=== PATIENT | male | born 1980 ===

== ENCOUNTER 2025-02-06 12:27 | Emergency (ER) | payer OTHER, SELFPAY ==
--- OUTSIDE RECORDS SUMMARY | 2024-12-27 07:30 | XMS_ITS | Encounter Summary ---
Author Organization [facility] Address [facility] [place] [address] Care Team Providers Care Qa Auditor Name Role Phone [facility], [facility] Primary Care Provider Reason for Referral * Consultation (Routine: Next available opening) - Pending Review Specialty Diagnoses / Procedures Referred By Martha dawson Referred To Contact Gastroenterology Diagnoses Acute gastric ulcer with perforation (H) Pam Barraza MD [facility] [place] [address] Phone: tel: fax: Referral ID Status Reason Start Date Expiration Date V isits Requested Visits Authorized [id number] Pending Review 01/02/2025 01/02/2026 1 1 Question Answer Reason for Referral: General GI Patient Scheduling Instructions: [facility] will call you to coordinate your care as prescribed by the provider. If you don t hear from a medical device sales representative within 2 business days, please call . Comments Please be aware that coverage of these services is subject to the terms and limitations of your health insurance plan. Call member services at your health plan with any benefit or coverage questions. [facility] will call you to coordinate your care as prescribed by the provider. If you don t hear from a medical device sales representative within 2 business days, please call . * Diagnostic Imaging CT Scan (Routine) - Pending Review Specialty Diagnoses / Procedures Referred By Martha dawson Referred To Contact Radiology. Diagnoses Ureteral stone Procedures CT Abdomen Pelvis w/o Contrast Tabitha Garcia PA-C [address] [place] [address] Phone: tel: fax: Referral ID Status Reason Start Date Expiration Date V isits Requested Visits Authorized [id number] Pending Review 12/27/2024 12/27/2025 1 1 Reason for Visit * Reason Comments Abdominal Pain * Auth/Cert Specialty Diagnoses / Procedures Referred By Contivette t Referred To Contact EMERGENCY MEDICINE Diagnoses Upper abdominal pain Right sided abdominal pain Acute gastric ulcer with perforation (H) Ureteral colic Hypertension, unspecified type [facility] Emergency Department [address] [place] [address] Phone: tel: Referral ID Status Reason Start Date Expiration Date Visits Re quested Visits Authorized [id number] 1 1 Encounter Details Date Type Department Care Team (Latest Contact Info) Description 12/27/2024 7:30 AM CDT - 01/02/2025 2:30 PM CDT Hospital Encounter [facility] [place] [address] Karely Garnica MD [address] [place] [address] [phone] Colin Garcia MD [address] [place] [address] [phone] Viet Gonzalez MD [address] [place] [address] [phone] Acute gastric ulcer with perforation (H) (Primary Dx); Upper abdominal pain; Right sided abdominal pain; Ureteral colic; Hypertension, unspecified type; Ureteral stone; Benign essential hypertension; Tobacco use disorder; Type 2 diabetes mellitus treated without insulin (H) Discharge Disposition: Home or Self Care Social History Tobacco Use Types Packs/Day Years Used Date Smoking Tobacco: Every Day Cigarettes 0.8 10 Smokeless Tobacco: Former Alcohol Use Standard Drinks/Week Comments Yes 1.7 (1 standard drink = 0.6 oz p ure alcohol) Adolescent Education Answer Date Record ed Getting School Help Needed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 04/26 Food Insecurity Answer Date Recorded Within the past 12 months, d id you worry that your food would run out before you got money to buy more? No 12/28/2024 Within the past 12 months, d id the food you bought just not last and you didn t have money to get more? No 12/28/2024 Housing Stability Answer Date Recorded Do you have housing? (Housin g is defined as stable permanent housing and does not include staying outside in a car, in a tent, in an abandoned building, in an overnight nursing home, or couch-surfing.) Yes 12/28/2024 Are you worried about losing your housing? No 12/28/2024 Financial Resource Strain Answer Date R ecorded Within the past 12 months, h ave you or your family members you live with been unable to get utilities (heat, electricity) when it was really needed? No 12/28/2024 Transportation Needs Answer Date Record ed Within the past 12 months, h as lack of transportation kept you from medical appointments, getting your medicines, non-medical meetings or appointments, work, or from getting things that you need? No 12/28/2024 Interpersonal Safety Answer Date Record ed Do you feel physically and e motionally safe where you currently live? Yes 12/28/2024 Within the past 12 months, h ave you been hit, slapped, kicked or otherwise physically hurt by someone? No 12/28/2024 Within the past 12 months, h ave you been humiliated or emotionally abused in other ways by your partner or ex-partner? 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 Gender Identity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 Sexual Orientation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 Occupation Industry Job Start Date Job End Date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 documented as of this encounter Last Filed Vital Signs Vital Sign Reading Time Taken Comments Blood Pressure 162/84 01/02/2025 11:00 AM CDT Pulse 72 01/02/2025 7:30 AM CDT Temperature 36.7 C (98.1 F) 01/02/2025 7:30 AM CDT Respiratory Rate 18 01/02/2025 7:30 AM CDT Oxygen Saturation 94% 01/02/2025 7:30 AM CDT Inhaled Oxygen Concentration - - Weight 134 kg (295 lb 7 oz) 12/27/2024 7:28 AM C DT Height 180.3 cm (5' 11) 12/27/2024 11:00 AM CDT Body Mass Index 41.21 12/27/2024 7:28 AM CDT documented in this encounter Discharge Summaries * Pam Barraza MD - 01/02/2025 10:52 AM CDT [facility] Discharge Summary - Medicine & Pediatrics Date of Admission: 12/27/2024 Date of Discharge: 01/02/2025 Discharging Provider: Dr. Garcia Discharge Service: Hospitalist Service Discharge Diagnoses Acute gastric ulcer with perforation Left Ureteral Colic Nephrolithiasis Clinically Significant Risk Factors # DMII: A1C = 8.2 % (Ref range: <5.7 %) within past 6 months # Morbid Obesity: Estimated body mass index is 41.21 kg/m?? as calculated from the following: Height as of this encounter: 1.803 m (5' 11). Weight as of this encounter: 134 kg (295 lb 7 oz). Follow-ups Needed After Discharge Follow-up Appointments Hospital Follow-up with Existing Primary Care Provider (PCP) Schedule Primary Care visit within: 14 Days - will need BP recheck. Was hypertensive throughout hospital stay. - new diagnosis of T2DM - recheck CBC Unresulted Labs Ordered in the Past 30 Days of this Admission No orders found from 11/27/2024 to 12/28/2024. These results will be followed up by PCP Discharge Disposition Discharged to home Condition at discharge: Stable Hospital Course Viet Cash was admitted on 12/27/2024 for perforated gastric ulcer w/nonoperative management. The following problems were addressed during his hospitalization: Acute gastric ulcer with perforation Presented to ER with epigastric pain. History of hospitalization due to GI bleed in Jul with EGD confirming gastric ulcers. Recommendations for interval endoscopy, PPI, and avoidance of NSAIDS. Reports that he took PPI for 1-2 weeks without repeat EGD done. He reports NSAID use with up to 9tablets aleve daily for chronic back pain. CT showed perforated gastric ulcer that appears to arise from the posterior antrum/pylorus. Trace adjacent pneumoperitoneum and free fluid, though no large/drainable collection. General surgery recommending conservative management at this time. WBC improving 01/01 17->14. UGI Gastrografin study obtained 12/30 showed no fluoroscopic evidence for gastroduo denal leakage. Received IV Zosyn & Diflucan while admitted for infection prophylaxis. No need for outpatient antibiotics. Required ASSISTANT HALL DIRECTOR morphine pump for pain control, wean to oral pain meds priorto discharge. -general surgery consulted, appreciate recommendations - Sucralfate 4 times daily for 30 days - protonix 40 mg twice daily for 90 days - Full liquid diet for one week - oral medications are absolutely fine; avoid NSAIDs Left Ureteral colic Nephrolithiasis Microscopic hematuria Pt reported intermittent right flank pain for the past week. Known history of nephrolithiasis. CT showed 6 and 8mm stones seen in L distal ureter without significant upstream hydronephrosis. Extensive bilateral nonobstructing nephrolithiasis similar to slightly increased compared to 07/16/23. Creatinine is normal at 0.98. UA positive for microscopic hematuria. Urology was consulted upon admission. Recommended trial of passage given current perforated gastric ulcer. -Flomax 0.4mg at bedtime -will need outpatient noncontrast CT follow-up with urology in 3-4 weeks Hypertensive Urgency Essential Hypertension BP elevated to 220s/130s in ED concerning for hypertensive urgency. History of hypertension. 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 Suspect BP elevation is largely secondary to pain in the setting of perforated gastric ulcer. BMP WNL. Plan to increase ANNEALING OVEN OPERATOR amlodipine to 10 mg daily. Type 2 Diabetes Mellitus Glucose in ED elevated at 204. A1c 8.2. Patient required sliding scale insulin while hospitalized. Discussed with patient at length prior to discharge. Plan to discharge with metformin 500 mg daily. Recommended close follow up with PCP. MEI -CPAP ordered overnight, he prefers 4 L O2 NC for comfort Consultations This Hospital Stay SURGERY GENERAL IP CONSULT UROLOGY IP CONSULT OCCUPATIONAL THERAPY ADULT IP CONSULT Code Status Full Code The patient was discussed with Dr. Jose Barraza MD [address] [place] [phone] Physical Exam Vital Signs: Temp: 98.1 ??F (36.7 ??C) Temp src: Oral BP: (!) 186/93 Pulse: 72 Resp: 18 SpO2: 94 % O2 Device: Nasal cannula Oxygen Delivery: 4 LPM Weight: 295 lbs 7 oz GENERAL: healthy, alert and no distress RESP: speaking in full sentences, normal work of breathing CV: extremities well perfused ABDOMEN: distended and diffusely tender MS: no gross musculoskeletal defects noted PSYCH: mentation appears normal, affect normal/bright Primary Care Physician [facility] Discharge Orders CT Abdomen Pelvis w/o Contrast Please schedule 3-4 weeks out from order date Adult GI Solid Waste Manager Referral - Consult Only Reason for your hospital stay You were admitted to the hospital for perforated gastric ulcer requiring pain meds and close monitoring. Your hospital stay was complicated by acute kidney stone. Activity Your activity upon discharge: activity as tolerated Diet Follow this diet upon discharge: Current Diet:Orders Placed This Encounter Full Liquid Diet for one week. Advance diet slowly as tolerated Hospital Follow-up with Existing Primary Care Provider (PCP) Significant Results and Procedures Most Recent 3 CBC's: Recent Labs Lab Test 01/02/25 0619 01/01/25 0700 12/31/24 0723 WBC 13.3* 14.1* 17.5* HGB 13.0* 12.2* 13.1* MCV 93 94 94 PLT 255 230 210 Most Recent 3 BMP's: Recent Labs Lab Test 01/02/25 0930 01/02/25 0739 01/02/25 0601 01/01/25 1026 01/01/25 0700 12/31/24 1000 12/31/24 0723 12/30/24 0740 12/30/24 0634 NA -- -- -- -- 135 -- 132* -- 134* POTASSIUM -- -- -- -- 3.4 -- 3.7 -- 4.6 CHLORIDE -- -- -- -- 96* -- 92* -- 95* CO2 -- -- -- -- 28 -- 27 -- 29 BUN -- -- -- -- 4.2* -- 5.8* -- 7.2 CR -- -- -- -- 0.83 -- 0.84 -- 0.99 ANIONGAP -- -- -- -- 11 -- 13 -- 10 BENNIE -- -- -- -- 8.7* -- 8.9 -- 9.3 GLC 136* 159* 150* < > 133* < > 131* < > 122* < > = values in this interval not displayed. , Results for orders placed or performed during the hospital encounter of 12/27/24 CTA Chest Abdomen Pelvis w Contrast Value Radiologist flags Perforated viscus (AA) Narrative EXAM: CTA CHEST ABDOMEN PELVIS W CONTRAST LOCATION: [facility] DATE: 12/27/2024 INDICATION: epigastric pain and right sided abd pain COMPARISON: CTA chest, CT abdomen pelvis 07/16/2023 TECHNIQUE: CT angiogram chest abdomen pelvis during arterial phase of injection of IV contrast. 2D and 3D MIP reconstructions were performed by the senior cytotechnologist. Dose reduction techniques were used. CONTRAST: 90ml isovue 370 FINDINGS: CT ANGIOGRAM CHEST, ABDOMEN, AND PELVIS: The thoracic aorta is nonaneurysmal without evidence of dissection or other acute abnormality. Proximal arch vessels are normal in appearance with note that the left vertebral artery arises directly from the arch (normal anatomic variant). The abdominal aorta is nonaneurysmal with scattered atheromatous disease but no evidence of dissection or other acute abnormality. The celiac, superior mesenteric, renal and inferior mesenteric arteries are patent without acute abnormality or flow-limiting stenosis. The bilateral common, internal and external iliac arteries as well as common femoral arteries are patent. LUNGS AND PLEURA: Central airways are patent. Centrilobular and paraseptal emphysema. Dependent atelectasis. No areas of consolidation. No pleural effusion. MEDIASTINUM/AXILLAE: Nonenlarged heart. No pericardial effusion. No thoracic lymphadenopathy. CORONARY ARTERY CALCIFICATION: Minimal. HEPATOBILIARY: Hepatic steatosis. No worrisome liver lesions. Cholecystectomy. PANCREAS: Normal. SPLEEN: Normal. ADRENAL GLANDS: Normal. KIDNEYS/BLADDER: Kidneys enhance symmetrically. Nonobstructing nephrolithiasis bilaterally, measuring up to 11 mm in the left lower pole and 9 mm in the right lower pole. There are 6 mm and 8 mm stones in the distal left ureter (series 8 image #90 and #98 respectively) without upstream hydronephrosis. Urinary bladder is unremarkable. BOWEL: Findings consistent with perforated gastric ulcer from the posterior antrum with trace pneumoperitoneum and adjacent free fluid (though no organized/drainable collection). Remainder of small and large bowel is normal in caliber. Appendectomy. LYMPH NODES: Prominent romy hepatis lymph nodes are unchanged and likely reactive. PELVIC ORGANS: Normal contours. MUSCULOSKELETAL: No worrisome bone lesions. Unchanged appearance of the L5 vertebral body. Healed left 6th rib fracture. Impression IMPRESSION: 1. Perforated gastric ulcer, which appears to arise from the posterior antrum/pylorus. Trace adjacent pneumoperitoneum and free fluid, though no large/drainable collection. 2. No acute aortic abnormality. 3. 6 mm and 8 mm stones in the distal left ureter without significant upstream hydronephrosis. Extensive bilateral nonobstructing nephrolithiasis is similar to slightly increased compared to 07/16/2023. 4. Hepatic steatosis. [Critical Result: Perforated viscus] Finding was identified on 12/27/2024 9:[address] Garnica was contacted by me on 12/27/2024 9:24 AM CDT and verbalized understanding of the critical result. XR Gastrografin Upper GI w KUB Narrative EXAM: XR GASTROGRAFIN UPPER GI W KUB LOCATION: [facility] DATE: 12/30/2024 INDICATION: Patient with gastric perforation, evaluation for contrast extrav COMPARISON: None. TECHNIQUE: Water-soluble contrast examination. RADIATION DOSE: Total Air Kerma 219.2 mGy FINDINGS: ESOPHAGUS: Normal caliber esophagus without evidence of a stricture or suspicious filling defect. Normal peristalsis. No hiatal hernia. No spontaneous gastroesophageal reflux was observed. STOMACH: Normal size, contour and rugal fold pattern. No extraluminal contrast leakage was observed. In particular, there was no contrast leakage along the posterior margin of the gastric antrum/pylorus. The DUODENUM: Normal. Free flow of contrast through proximal small bowel. No intraluminal contrast leakage. Impression IMPRESSION: 1. No fluoroscopic evidence for gastroduodenal leakage. Discharge Medications Review of your medicines START taking Dose / Directions metFORMIN 500 MG 24 hr tablet Commonly known as: GLUCOPHAGE XR Used for: Type 2 diabetes mellitus treated without insulin (H) Dose: 500 mg Take 1 tablet (500 mg) by mouth daily (with dinner). Quantity: 90 tablet Refills: 1 nicotine 14 MG/24HR 24 hr patch Commonly known as: NICODERM CQ Used for: Tobacco use disorder Dose: [address] 1 patch over 24 hours onto the skin every 24 hours. Quantity: 10 patch Refills: 1 oxyCODONE 5 MG tablet Commonly known as: ROXICODONE Used for: Ureteral stone Dose: 5 mg Take 1 tablet (5 mg) by mouth every 4 hours as needed for severe pain or moderate pain. Quantity: 12 tablet Refills: 0 pantoprazole 40 MG EC tablet Commonly known as: PROTONIX Dose: 40 mg Take 1 tablet (40 mg) by mouth 2 times daily (before meals). Quantity: 90 tablet Refills: 1 sucralfate 1 GM tablet Commonly known as: CARAFATE Dose: 1 g Take 1 tablet (1 g) by mouth 4 times daily. Quantity: 120 tablet Refills: 0 tamsulosin 0.4 MG capsule Commonly known as: FLOMAX Used for: Ureteral stone Dose: 0.4 mg Take 1 capsule (0.4 mg) by mouth at bedtime. Quantity: 90 capsule Refills: 2 CHANGE how you take these medications Dose / Directions amLODIPine 5 MG tablet Commonly known as: NORVASC This may have changed: how much to take Used for: Benign essential hypertension Dose: 10 mg Take 2 tablets (10 mg) by mouth daily. Quantity: 90 tablet Refills: 1 CONTINUE these medicines which have NOT CHANGED Dose / Directions TYLENOL 500 MG tablet Generic drug: acetaminophen Dose: 500 mg Take 500 mg by mouth every 4 hours as needed for mild pain Refills: 0 STOP taking ibuprofen 200 MG tablet Commonly known as: ADVIL/MOTRIN Where to get your medicines These medications were sent to [id number] - [place] [address] [place] [address] amLODIPine 5 MG tablet metFORMIN 500 MG 24 hr tablet nicotine 14 MG/24HR 24 hr patch pantoprazole 40 MG EC tablet sucralfate 1 GM tablet tamsulosin 0.4 MG capsule Some of these will need a paper prescription and others can be bought over the counter. Ask your nurse if you have questions. Bring a paper prescription for each of these medications oxyCODONE 5 MG tablet Allergies Allergies Allergen Reactions Cephalosporins Hives nausea Sulfa Antibiotics Hives Ceclor [Cefaclor] Rash Lisinopril Cough Septra [Bactrim] Nausea and Vomiting Cosigned by Colin Garcia MD at 01/02/2025 3:43 PM CDT Associated attestation - Colin Garcia MD - 01/02/2025 3:43 PM CDT Faculty Supervision of Residents I have examined this patient on 01/02/2025 and the medical care has been evaluated and discussed with the resident. The documentation has been reviewed. I agree with the medical care provided and confirm the findings. Colin Garcia MD documented in this encounter Medications at Time of Discharge acetaminophen (TYLENOL) 500 MG tablet Take 500 mg by mouth every 4 hours as needed for mild pain amLODIPine (NORVASC) 5 MG tabletIndications: Benign essential hypertension Take 2 tablets (10 mg) by mouth daily. 90 tablet 1 01/02/2025 metFORMIN (GLUCOPHAGE XR) 500 MG 24 hr tabletIndications: Type 2 diabetes mellitus treated without insulin (H) Take 1 tablet (500 mg) by mouth daily (with dinner). 90 tablet 1 01/02/2025 nicotine (NICODERM CQ) 14 MG/24HR 24 hr patchIndications:T obacco use disorder Place 1 patch over 24 hours onto the skin every 24 hours. 10 patch 1 01/02/2025 oxyCODONE (ROXICODONE) 5 MG tabletIndications: Acute gastric ulcer with perforation (H),Ureteral colic,Ureteral stone Take 1 tablet (5 mg) by mouth every 4 hours as needed for severe pain or moderate pain. 12 tablet 01/02/2025 pantoprazole (PROTONIX) 40 MG EC tabletIndications: Acute gastric ulcer with perforation (H) Take 1 tablet (40 mg) by mouth 2 times daily (before meals). 90 tablet 1 01/02/2025 sucralfate (CARAFATE) 1 GM tabletIndications: Acute gastric ulcer with perforation (H) Take 1 tablet (1 g) by mouth 4 times daily. 120 tablet 01/02/2025 tamsulosin (FLOMAX) 0.4 MG capsuleIndications :Ureteral colic,Ureteral stone Take 1 capsule (0.4 mg) by mouth at bedtime. 90 capsule 2 01/02/2025 documented as of this encounter Progress Notes * Shira Ramires, RD - 01/02/2025 11:48 AM CDT NUTRITION EDUCATION REASON FOR ASSESSMENT: RN asked RD to provide full liquid diet with DM for pt with gastric ulcer Met pt in room. He and his girlfriend cook and she does the shopping. Pt reports he has had his gallbladder out and knows to avoid fried, greasy foods. He also has hypertension. He is not a milk drinker but, will drink protein shakes they buy from [employer] - he thinks they are low carbohydrate, high protein. CURRENT DIET: Full liquid NUTRITION DIAGNOSIS: Food- and nutrition-related knowledge deficit R/t full liquid diet with DM, HTN, gastric ulcer INTERVENTIONS: Nutrition Prescription: Full liquid, 60-76 gm cho per meal, 72-90 gm (1 -1.2 gm per adjusted BW), protein daily for healing, avoid high sodium foods. Implementation: * Nutrition Education (Content): A) Provided handout Full liquid diet nutrition therapy, carbohydrate content of foods list, (also includes protein content) B) Discussed Trying to eat a nutritionally balance diet while on full liquids, keeping in mind carbohydrate content, protein content, avoiding high sodium (suggested making own soups rather than purchasing pre made). Also discussed healthy choices/foods to avoid with gastric ulcer within current diet restriction and going forward. * Nutrition Education (Application): A) Discussed current eating habits and recommended alternative food choices * Anticipate good compliance - pt participated in conversation. We talked about using sample menu to make meal plans * Diet Education - refer to Education Flowsheet Goals: * Patient will verbalized understanding of diet. * All of the above goals met during the education session Follow Up/Monitoring: * Provided RD contact information for future questions * Recommended Out-Patient Nutrition Referral, if further diet instructions are needed * Luis Ferrara MD - 01/01/2025 11:33 AM CDT [facility] Progress Note - Hospitalist Service Date of Admission: 12/27/2024 Assessment & Plan Viet Cash is a 44 year old male admitted on 12/27/2024. He has a history of known gastric ulcers with GI bleed in Jul, 2023, T2DM, MEI, and obesity and is admitted for a perforated gastric ulcer w/nonoperative management 01/01 updates: ->Full liquid diet, surgery recs FLD x1 week, once without discomfort can slowly advance diet. -BID PPI x90 days -Carafate QID x30 days - Hold ASSISTANT HALL DIRECTOR pump and morphine, trial PO dilaudid 2 mg q2h, wean as able -Reduced mIVF to 75 mL/hr, anticipate discontinue once tolerating FLD -Continue zosyn Acute gastric ulcer with perforation Presented to ER with epigastric pain. History of hospitalization due to GI bleed in Jul with EGD confirming gastric ulcers. Recommendations for interval endoscopy, PPI, and avoidance of NSAIDS. Reports that he took PPI for 1-2 weeks without repeat EGD done. He reports NSAID use with up to 9tablets aleve daily for chronic back pain. CT showed perforated gastric ulcer that appears to arise from the posterior antrum/pylorus. Trace adjacent pneumoperitoneum and free fluid, though no large/drainable collection. General surgery recommending conservative management at this time. WBC improving 01/01 17->14 -general surgery consulted, appreciate recommendations Sucralfate 4 times daily Continue PPI twice daily Clear liquid diet; oral medications are absolutely fine; avoid NSAIDs Continue IV antibiotics and antifungals for now -IV Zosyn & Diflucan -Trial wean off ASSISTANT HALL DIRECTOR pump, transition to PO dilaudid today, attempt to space out (currently q2h), holding additional morphine -mIVF LR -> 75mL/hr -IV PPI BID -PRN zofran for nausea/vomiting -blood cultures: NGTD -cardiac telemetry -daily BMP, CBC Left Ureteral colic Microscopic hematuria Pt reported intermittent right flank pain for the past week. Known history of nephrolithiasis. CT showed 6 and 8mm stones seen in L distal ureter without significant upstream hydronephrosis. Extensive bilateral nonobstructing nephrolithiasis similar to slightly increased compared to 07/16/23. Creatinine is normal at 0.98. UA positive for microscopic hematuria. -urology consult, appreciate recommendations. Signed off 12/28 - trial of passage given current perforated gastric ulcer -Flomax 0.4mg at bedtime (unheld 12/31) -will need outpatient noncontrast CT follow-up with urology in 3-4 weeks (ordered) -daily BMP Hypertensive Urgency Essential Hypertension BP elevated to 220s/130s in ED concerning for hypertensive urgency. History of hypertension. 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 Suspect BP elevation is largely secondary to pain in the setting of perforated gastric ulcer. BMP WNL. 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 A1c 8.2. -glucose checks Q4hr -sliding scale insulin -BG at goal 120-155 on MSSI, no long acting required at this time MEI -CPAP ordered overnight, he prefers 4 L O2 NC for comfort Diet: Full Liquid Diet DVT Prophylaxis: Pneumatic Compression Devices Lawler Catheter: Not present Fluids: LR 75 mL/hr, then PO (FLD) Lines: None Cardiac Monitoring: None Code Status: Full Code Clinically Significant Risk Factors # Hyponatremia: Lowest Na = 132 mmol/L in last 2 days, will monitor as appropriate # Hypochloremia: Lowest Cl = 92 mmol/L in last 2 days, will monitor as appropriate # Hypertension: Noted on problem list # DMII: A1C = 8.2 % (Ref range: <5.7 %) within past 6 months # Morbid Obesity: Estimated body mass index is 41.21 kg/m?? as calculated from the following: Height as of this encounter: 1.803 m (5' 11). Weight as of this encounter: 134 kg (295 lb 7 oz). Social Drivers of Health Tobacco Use: High Risk (10/28/2023) Received from [employer] Patient History Smoking Tobacco Use: Every Day Smokeless Tobacco Use: Former Disposition Plan Medically Ready for Discharge: Anticipated in 2-4 Days The patient's care was discussed with the Attending Physician, Dr. Gonzalez. Luis Ferrara MD Hospitalist Service [facility] Securely message with [employer] (more info) Text page via [facility] Paging/Directory Interval History NAEO. Patient states pain is overall improved, denies belly pain at rest, has been tolerating CLD well, advance to FLD today. WBC improving, sugars at goal. Discontinue tele. Try to wean off ASSISTANT HALL DIRECTOR pumptoday and trial PO dilaudid. On 4L O2 for comfort, intermittently using CPAP at night. Physical Exam Vital Signs: Temp: 98.1 ??F (36.7 ??C) Temp src: Oral BP: (!) 157/89 Pulse: 81 Resp: 20 SpO2: 94 % O2 Device: Nasal cannula Oxygen Delivery: 4 LPM Weight: 295 lbs 7 oz GENERAL: healthy, alert and no distress RESP: speaking in full sentences, normal work of breathing CV: extremities well perfused ABDOMEN: distended and diffusely tender MS: no gross musculoskeletal defects noted PSYCH: mentation appears normal, affect normal/bright Data I have personally reviewed the following data over the past 24 hrs: 14.1 (H) \ 12.2 (L) / 230 135 96 (L) 4.2 (L) / 145 (H) 3.4 28 0.83 \ Imaging results reviewed over the past 24 hrs: No results found for this or any previous visit (from the past 24 hours). Luis Ferrara MD PGY-2 [facility] Medicine Residency [facility] January 01, 2025 Cosigned by Viet Gonzalez MD at 01/02/2025 10:32 PM CDT Associated attestation - Viet Gonzalez MD - 01/02/2025 10:32 PM CDT Faculty Supervision of Residents I have examined Viet Cash, : 1980, on 01/01/25 and the medical care has been evaluated and discussed with the resident. I agree with the medical care provided, confirm the findings after personally reviewing the images and labs, and agree with the plan documented in the note by Dr. Luis Ferrara. Viet Gonzalez III, MD, FAAFP [employer] Residency Faculty 01/02/25 10:31 PM * Valencia Hatch APRN DRESSING ROOM ATTENDANT - 01/01/2025 9:30 AM CDT General Surgery Progress Note: Hospital Day # 5 ASSESSMENT: 1. Acute gastric ulcer with perforation (H) 2. Upper abdominal pain 3. Right sided abdominal pain 4. Ureteral colic 5. Hypertension, unspecified type 6. Ureteral stone Viet Cash is a 44 year old male who presented to the ER with abdominal pain found to have bilateral nephrolithiasis and perforated gastric ulcer. Upper GI with no evidence of leak and patient has tolerated clear liquids for the past 24 hours with minimal upper abdominal discomfort. The bulk ofhis pain complaints are groin to flank and likely secondary to his nephrolithiasis. No surgical intervention for gastric ulcer with contained perforation. Suggest he stay on full liquids for about a week. Continue PPI bid for 90 days and PLAN: Suggest he stay on full liquids for about a week. Once he no longer has any discomfort he can slowly advance his diet. Avoid alcohol, NSAIDs, highly acidic foods, smoking/vaping and caffeine Suggest PPI bid for 90 days and sucralfate qid for 30 days Suggest GI consultation as patient will need a follow up upper endoscopy Surgery will sign off SUBJECTIVE: Viet Cash is feeling better. He is looking forward to eating more. He tolerated clear liquids with lots of jello yesterday and states that he has no upper abdominal pain. He does have some tenderness in the area if he presses. He reports that his pain is primarily in the RLQ into the groin and in his right lower back. Patient Vitals for the past 24 hrs: BP Temp Temp src Pulse Resp SpO2 01/01/25 0644 (!) 157/89 -- -- 81 20 94 % 01/01/25 0448 (!) 149/75 -- -- 66 -- -- 01/01/25 0445 -- -- -- 69 -- -- 01/01/25 0352 (!) 197/105 -- -- 81 -- -- 12/31/24 2356 (!) 180/90 98.1 ??F (36.7 ??C) Oral 78 20 93 % 12/31/24 1948 (!) 171/93 98.7 ??F (37.1 ??C) Oral 79 18 93 % 12/31/24 1546 (!) 175/86 -- -- 80 20 94 % 12/31/24 1305 (!) 166/80 98 ??F (36.7 ??C) Oral 84 20 94 % Physical Exam: General: NAD, pleasant CV:RRR LUNGS:CTA bilaterally ABD: soft, obese; mild epigastric tenderness with moderate palaption; no peritoneal signs EXT:no CCE No results displayed because visit has over 200 results. Valencia Hatch APRN DRESSING ROOM ATTENDANT * Macho Saravia MD - 12/31/2024 1:40 PM CDT [facility] Progress Note - Hospitalist Service Date of Admission: 12/27/2024 Assessment & Plan Viet Cash is a 44 year old male admitted on 12/27/2024. He has a history of known gastric ulcers with GI bleed in Jul, 2023, T2DM, MEI, and obesity and is admitted for a perforated gastric ulcer. 12/31 updates: -> clear liquid diet - ASSISTANT HALL DIRECTOR pump to 2mg - IVF bolus given, mIVF continued Acute gastric ulcer with perforation Presented to ER with epigastric pain. History of hospitalization due to GI bleed in Jul with EGD confirming gastric ulcers. Recommendations for interval endoscopy, PPI, and avoidance of NSAIDS. Reports that he took PPI for 1-2 weeks without repeat EGD done. He reports NSAID use with up to 9tablets aleve daily for chronic back pain. CT showed perforated gastric ulcer that appears to arise from the posterior antrum/pylorus. Trace adjacent pneumoperitoneum and free fluid, though no large/drainable collection. General surgery recommending conservative management at this time. -general surgery consulted, appreciate recommendations Sucralfate 4 times daily Continue PPI twice daily Clear liquid diet; oral medications are absolutely fine; avoid NSAIDs Continue IV antibiotics and antifungals for now -IV Zosyn & Diflucan -Pain controlled with ASSISTANT HALL DIRECTOR morphine pump -mIVF LR -> 75mL/hr -IV PPI BID -PRN zofran for nausea/vomiting -blood cultures: NGTD -cardiac telemetry -daily BMP, CBC Left Ureteral colic Microscopic hematuria Pt reported intermittent right flank pain for the past week. Known history of nephrolithiasis. CT showed 6 and 8mm stones seen in L distal ureter without significant upstream hydronephrosis. Extensive bilateral nonobstructing nephrolithiasis similar to slightly increased compared to 07/16/23. Creatinine is normal at 0.98. UA positive for microscopic hematuria. -urology consult, appreciate recommendations. Signed off 12/28 - trial of passage given current perforated gastric ulcer -Flomax 0.4mg at bedtime (unheld 12/31) -will need outpatient noncontrast CT follow-up with urology in 3-4 weeks (ordered) -daily BMP Hypertensive Urgency Essential Hypertension BP elevated to 220s/130s in ED concerning for hypertensive urgency. History of hypertension. 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 Suspect BP elevation is largely secondary to pain in the setting of perforated gastric ulcer. BMP WNL. 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 A1c 8.2. -glucose checks Q4hr -sliding scale insulin -may require initiation of Lantus while admitted MEI -CPAP ordered overnight Diet: Clear Liquid Diet DVT Prophylaxis: Pneumatic Compression Devices Lawler Catheter: Not present Fluids: LR 75ml/hr Lines: None Cardiac Monitoring: ACTIVE order. Indication: Chest pain/ ACS rule out (24 hours) Code Status: Full Code Clinically Significant Risk Factors # Hyponatremia: Lowest Na = 132 mmol/L in last 2 days, will monitor as appropriate # Hypochloremia: Lowest Cl = 92 mmol/L in last 2 days, will monitor as appropriate # Hypertension: Noted on problem list # DMII: A1C = 8.2 % (Ref range: <5.7 %) within past 6 months # Morbid Obesity: Estimated body mass index is 41.21 kg/m?? as calculated from the following: Height as of this encounter: 1.803 m (5' 11). Weight as of this encounter: 134 kg (295 lb 7 oz). Social Drivers of Health Tobacco Use: High Risk (10/28/2023) Received from [employer] Patient History Smoking Tobacco Use: Every Day Smokeless Tobacco Use: Former Disposition Plan Medically Ready for Discharge: Anticipated in 2-4 Days The patient's care was discussed with the Attending Physician, Dr. Gonzalez. Macho Saravia MD Hospitalist Service [facility] Securely message with [employer] (more info) Text page via [employer] Paging/Directory Interval History DAINA Pain has improved Has had multiple Bms since gastrograffin yesterday Urinating without issue Physical Exam Vital Signs: Temp: 98 ??F (36.7 ??C) Temp src: Oral BP: (!) 166/80 Pulse: 84 Resp: 20 SpO2: 94 % Z7Nehwpm: None (Room air) Oxygen Delivery: 3 LPM Weight: 295 lbs 7 oz GENERAL: healthy, alert and no distress RESP: speaking in full sentences, normal work of breathing CV: extremities well perfused ABDOMEN: distended and diffusely tender MS: no gross musculoskeletal defects noted PSYCH: mentation appears normal, affect normal/bright Data I have personally reviewed the following data over the past 24 hrs: 17.5 (H) \ 13.1 (L) / 210 132 (L) 92 (L) 5.8 (L) / 155 (H) 3.7 27 0.84 \ Imaging results reviewed over the past 24 hrs: Recent Results (from the past 24 hours) XR Gastrografin Upper GI w KUB Narrative EXAM: XR GASTROGRAFIN UPPER GI W KUB LOCATION: [facility] DATE: 12/30/2024 INDICATION: Patient with gastric perforation, evaluation for contrast extrav COMPARISON: None. TECHNIQUE: Water-soluble contrast examination. RADIATION DOSE: Total Air Kerma 219.2 mGy FINDINGS: ESOPHAGUS: Normal caliber esophagus without evidence of a stricture or suspicious filling defect. Normal peristalsis. No hiatal hernia. No spontaneous gastroesophageal reflux was observed. STOMACH: Normal size, contour and rugal fold pattern. No extraluminal contrast leakage was observed. In particular, there was no contrast leakage along the posterior margin of the gastric antrum/pylorus. The DUODENUM: Normal. Free flow of contrast through proximal small bowel. No intraluminal contrast leakage. Impression IMPRESSION: 1. No fluoroscopic evidence for gastroduodenal leakage. Cosigned by Viet Gonzalez MD at 01/01/2025 1:31 PM CDT Associated attestation - Viet Gonzalez MD - 01/01/2025 1:31 PM CDT Faculty Supervision of Residents I have examined Viet Cash, : 1980, on 12/31/24 and the medical care has been evaluated and discussed with the resident. I agree with the medical care provided, confirm the findings after personally reviewing the images and labs, and agree with the plan documented in the note by Dr. Macho Saravia. Viet Gonzalez III, MD, FAAFP [employer] Residency Faculty 01/01/25 1:31 PM * Valencia Hatch APRN DRESSING ROOM ATTENDANT - 12/31/2024 1:07 PM CDT General Surgery Progress Note: Hospital Day # 4 ASSESSMENT: 1. Acute gastric ulcer with perforation (H) 2. Upper abdominal pain 3. Right sided abdominal pain 4. Ureteral colic 5. Hypertension, unspecified type 6. Ureteral stone Viet Cash is a 44 year old male who presented to the ER with abdominal pain found to have bilateral nephrolithiasis and perforated gastric ulcer. Upper GI showed no extubation of contrast so gastric ulcer is contained. was started on clear liquid diet by surgery yesterday but has not been allowed anything other than water. Leukocytosis was slightly increased today. Afebrile and patient has actually improved clinically. Touched base with charge nurse and made very clear that patient can have clear liquid diet (which means patient can have oral medications). We will start sucralfate. If patient tolerates clear liquids, we will advance to full liquids tomorrow. Patient will likely go homeon full liquids for about a week, 90 days of PPI twice daily, and sucralfate 4 times daily. PLAN: Sucralfate 4 times daily Continue PPI twice daily Clear liquid diet; oral medications are absolutely fine; avoid NSAIDs Continue IV antibiotics and antifungals for now [place] [facility] SUBJECTIVE: Viet Cash is better. He really wants something to drink. Patient has been asking for broth since last night. Surgery did place a clear liquid diet after his upper GI yesterday but this apparently has not been given to him. Patient states that he is passing gas and is having liquid stool since the contrast yesterday afternoon. His pain is much less and remains epigastric along with some right lower quadrant pain that wraps around to his right flank. Patient Vitals for the past 24 hrs: BP Temp Temp src Pulse Resp SpO2 12/31/24 1305 (!) 166/80 98 ??F (36.7 ??C) Oral 84 20 94 % 12/31/24 0828 (!) 159/102 98 ??F (36.7 ??C) Oral 90 20 95 % 12/31/24 0436 (!) 173/108 -- -- -- -- -- 12/31/24 0429 (!) 183/111 -- -- -- -- -- 12/31/24 0421 (!) 207/116 -- -- -- -- -- 12/31/24 0405 (!) 204/110 98.5 ??F (36.9 ??C) Oral 90 20 92 % 12/30/24 2325 (!) 171/100 99.3 ??F (37.4 ??C) Oral 88 20 92 % 12/30/24 1749 (!) 141/78 -- -- -- -- -- 12/30/24 1521 (!) 181/111 99.2 ??F (37.3 ??C) Oral 92 20 93 % Physical Exam: General: NAD, pleasant CV:RRR LUNGS:CTA bilaterally ABD: Soft, mild tenderness to palpation in the epigastric region no peritoneal signs EXT:no CCE Admission on 12/27/2024 Component Date Value Color Urine 12/27/2024 Yellow Appearance Urine 12/27/2024 Clear Glucose Urine 12/27/2024 Negative Bilirubin Urine 12/27/2024 Negative Ketones Urine 12/27/2024 Negative Specific [place] Urine 12/27/2024 1.010 Blood Urine 12/27/2024 >1.0 mg/dL (A) pH Urine 12/27/2024 6.0 Protein Albumin Urine 12/27/2024 70 (A) Urobilinogen Urine 12/27/2024 Normal Nitrite Urine 12/27/2024 Negative Leukocyte Esterase Urine 12/27/2024 Negative Mucus Urine 12/27/2024 Present (A) RBC Urine 12/27/2024 >182 (H) WBC Urine 12/27/2024 0 Ventricular Rate 12/27/2024 89 Atrial Rate 12/27/2024 89 VT Interval 12/27/2024 170 QRS Duration 12/27/2024 80 QT 12/27/2024 364 QTc 12/27/2024 442 P [place] 12/27/2024 50 R AXIS 12/27/2024 232 T [place] 12/27/2024 80 Interpretation ECG 12/27/2024 Value:Sinus rhythm Indeterminate axis Borderline ECG When compared with ECG of 16-Jul-2023 12:18, Questionable change in QRS axis T wave amplitude has increased in Inferior leads Confirmed by SEE ED PROVIDER NOTE FOR, ECG INTERPRETATION ([id number]), market editor Pavan Browne () on 12/28/2024 1:00:45 PM Sodium 12/27/2024 139 Potassium 12/27/2024 4.6 Chloride 12/27/2024 102 Carbon Dioxide (CO2) 12/27/2024 30 (H) Anion Gap 12/27/2024 7 Urea Nitrogen 12/27/2024 7.9 Creatinine 12/27/2024 0.98 GFR Estimate 12/27/2024 >90 Calcium 12/27/2024 9.5 Glucose 12/27/2024 204 (H) Protein Total 12/27/2024 6.7 Albumin 12/27/2024 4.2 Bilirubin Total 12/27/2024 0.8 Alkaline Phosphatase 12/27/2024 63 AST 12/27/2024 24 ALT 12/27/2024 38 Bilirubin Direct 12/27/2024 0.19 Lipase 12/27/2024 78 (H) Troponin T, High Sensiti* 12/27/2024 15 WBC Count 12/27/2024 9.9 RBC Count 12/27/2024 4.95 Hemoglobin 12/27/2024 15.7 Hematocrit 12/27/2024 44.8 MCV 12/27/2024 91 MCH 12/27/2024 31.7 MCHC 12/27/2024 35.0 RDW 12/27/2024 13.2 Platelet Count 12/27/2024 240 % Neutrophils 12/27/2024 70 % Lymphocytes 12/27/2024 18 % Monocytes 12/27/2024 7 % Eosinophils 12/27/2024 4 % Basophils 12/27/2024 1 % Immature Granulocytes 12/27/2024 1 NRBCs per 100 WBC 12/27/2024 0 Absolute Neutrophils 12/27/2024 6.9 Absolute Lymphocytes 12/27/2024 1.8 Absolute Monocytes 12/27/2024 0.7 Absolute Eosinophils 12/27/2024 0.4 Absolute Basophils 12/27/2024 0.1 Absolute Immature Granul* 12/27/2024 0.1 Absolute NRBCs 12/27/2024 0.0 Radiologist flags 12/27/2024 Perforated viscus (AA) Troponin T, High Sensiti* 12/27/2024 14 Lactic Acid, Initial 12/27/2024 2.0 INR 12/27/2024 1.01 PT 12/27/2024 13.5 aPTT 12/27/2024 22 ABO/RH(D) 12/27/2024 A POS Antibody Screen 12/27/2024 Negative SPECIMEN EXPIRATION DATE 12/27/2024 12/30/2024 11:59:00 PM CDT Culture 12/27/2024 No growth after 4 days Culture 12/27/2024 No growth after 4 days GLUCOSE BY METER POCT 12/27/2024 176 (H) GLUCOSE BY METER POCT 12/27/2024 174 (H) Sodium 12/28/2024 134 (L) Potassium 12/28/2024 4.1 Chloride 12/28/2024 97 (L) Carbon Dioxide (CO2) 12/28/2024 29 Anion Gap 12/28/2024 8 Urea Nitrogen 12/28/2024 8.2 Creatinine 12/28/2024 1.02 GFR Estimate 12/28/2024 >90 Calcium 12/28/2024 8.9 Glucose 12/28/2024 180 (H) WBC Count 12/28/2024 13.5 (H) RBC Count 12/28/2024 4.55 Hemoglobin 12/28/2024 13.9 Hematocrit 12/28/2024 42.6 MCV 12/28/2024 94 MCH 12/28/2024 30.5 MCHC 12/28/2024 32.6 RDW 12/28/2024 13.7 Platelet Count 12/28/2024 212 GLUCOSE BY METER POCT 12/28/2024 174 (H) Estimated Average Glucose 12/28/2024 189 (H) Hemoglobin A1C 12/28/2024 8.2 (H) GLUCOSE BY METER POCT 12/28/2024 189 (H) GLUCOSE BY METER POCT 12/28/2024 185 (H) GLUCOSE BY METER POCT 12/28/2024 178 (H) GLUCOSE BY METER POCT 12/28/2024 152 (H) Ventricular Rate 12/28/2024 79 Atrial Rate 12/28/2024 79 VT Interval 12/28/2024 176 QRS Duration 12/28/2024 88 QT 12/28/2024 396 QTc 12/28/2024 454 P [place] 12/28/2024 27 R AXIS 12/28/2024 -13 T [place] 12/28/2024 49 Interpretation ECG 12/28/2024 Value:Sinus rhythm RSR' in V1 Inferior infarct , age undetermined Abnormal ECG When compared with ECG of 27-Dec-2024 07:42, Inferior infarct is now Present Confirmed by ELIA SANABRIA, FARRAH LOC:JN ([id number]) on 12/29/2024 4:29:30 PM GLUCOSE BY METER POCT 12/28/2024 152 (H) GLUCOSE BY METER POCT 12/28/2024 146 (H) Sodium 12/29/2024 135 Potassium 12/29/2024 4.0 Chloride 12/29/2024 97 (L) Carbon Dioxide (CO2) 12/29/2024 28 Anion Gap 12/29/2024 10 Urea Nitrogen 12/29/2024 9.0 Creatinine 12/29/2024 0.98 GFR Estimate 12/29/2024 >90 Calcium 12/29/2024 9.0 Glucose 12/29/2024 139 (H) WBC Count 12/29/2024 14.3 (H) RBC Count 12/29/2024 4.21 (L) Hemoglobin 12/29/2024 13.5 Hematocrit 12/29/2024 39.9 (L) MCV 12/29/2024 95 MCH 12/29/2024 32.1 MCHC 12/29/2024 33.8 RDW 12/29/2024 13.8 Platelet Count 12/29/2024 207 GLUCOSE BY METER POCT 12/29/2024 135 (H) GLUCOSE BY METER POCT 12/29/2024 138 (H) GLUCOSE BY METER POCT 12/29/2024 148 (H) GLUCOSE BY METER POCT 12/29/2024 111 (H) GLUCOSE BY METER POCT 12/29/2024 126 (H) GLUCOSE BY METER POCT 12/29/2024 117 (H) WBC Count 12/30/2024 16.8 (H) RBC Count 12/30/2024 4.33 (L) Hemoglobin 12/30/2024 13.4 Hematocrit 12/30/2024 41.1 MCV 12/30/2024 95 MCH 12/30/2024 30.9 MCHC 12/30/2024 32.6 RDW 12/30/2024 13.5 Platelet Count 12/30/2024 230 Sodium 12/30/2024 134 (L) Potassium 12/30/2024 4.6 Chloride 12/30/2024 95 (L) Carbon Dioxide (CO2) 12/30/2024 29 Anion Gap 12/30/2024 10 Urea Nitrogen 12/30/2024 7.2 Creatinine 12/30/2024 0.99 GFR Estimate 12/30/2024 >90 Calcium 12/30/2024 9.3 Glucose 12/30/2024 122 (H) GLUCOSE BY METER POCT 12/30/2024 112 (H) GLUCOSE BY METER POCT 12/30/2024 117 (H) GLUCOSE BY METER POCT 12/30/2024 130 (H) GLUCOSE BY METER POCT 12/30/2024 132 (H) GLUCOSE BY METER POCT 12/30/2024 127 (H) GLUCOSE BY METER POCT 12/30/2024 172 (H) GLUCOSE BY METER POCT 12/30/2024 120 (H) WBC Count 12/31/2024 17.5 (H) RBC Count 12/31/2024 4.21 (L) Hemoglobin 12/31/2024 13.1 (L) Hematocrit 12/31/2024 39.6 (L) MCV 12/31/2024 94 MCH 12/31/2024 31.1 MCHC 12/31/2024 33.1 RDW 12/31/2024 13.7 Platelet Count 12/31/2024 210 Sodium 12/31/2024 132 (L) Potassium 12/31/2024 3.7 Chloride 12/31/2024 92 (L) Carbon Dioxide (CO2) 12/31/2024 27 Anion Gap 12/31/2024 13 Urea Nitrogen 12/31/2024 5.8 (L) Creatinine 12/31/2024 0.84 GFR Estimate 12/31/2024 >90 Calcium 12/31/2024 8.9 Glucose 12/31/2024 131 (H) GLUCOSE BY METER POCT 12/31/2024 122 (H) GLUCOSE BY METER POCT 12/31/2024 131 (H) GLUCOSE BY METER POCT 12/31/2024 155 (H) Valencia Hatch APRN DRESSING ROOM ATTENDANT * Portia Gandhi PA - 12/30/2024 12:36 PM CDT General Surgery Progress Note: Hospital Day # 3 ASSESSMENT: 1. Acute gastric ulcer with perforation (H) 2. Upper abdominal pain 3. Right sided abdominal pain 4. Ureteral colic 5. Hypertension, unspecified type 6. Ureteral stone Viet Cash is a 44 year old male who is admitted for perforated gastric ulcer, appearing contained. He has been strict NPO x 3 days with plan for UGI today for interval evaluation. Vitals notable forhypertension (urgency) without tachycardia or fever. Labs with up trending leukocytosis (WBC 16.8<14.3). Pain is reported persistent to his upper abdomen as well as discomfort associated from his nephrolithiasis that is controlled with IV morphine q 2 hours, rated 4/10. Plan for UGI today. PLAN: -NPO diet, strict-no oral meds or sips -IV PPI BID -IV abx and IV antifungals -UGI today -[place] [facility] [place]Surgery to follow SUBJECTIVE: He is reporting doing okay however with persistent abdominal pain as well as right sided back pain he attributes secondary to his kidney stones. Rates pain to be 4 out of 10 in the room following IV morphine every 2 hours on ASSISTANT HALL DIRECTOR pump. Endorses flatus, has not had a bowel movement while inpatient. Denies sensation of fever, chills or nausea. Patient Vitals for the past 24 hrs: BP Temp Temp src Pulse Resp SpO2 12/30/24 1016 (!) 187/98 -- -- 77 20 93 % 12/30/24 0737 (!) 179/102 98.7 ??F (37.1 ??C) Oral 79 22 93 % 12/30/24 0630 (!) 193/103 -- -- -- -- -- 12/30/24 0359 (!) 201/107 98.5 ??F (36.9 ??C) Oral 82 20 92 % 12/29/24 2333 (!) 201/108 98.8 ??F (37.1 ??C) Oral 85 18 93 % 12/29/24 1910 (!) 198/120 98.8 ??F (37.1 ??C) Oral 76 18 94 % 12/29/24 1750 (!) 191/105 -- -- 71 -- 93 % 12/29/24 1735 (!) 184/99 -- -- 71 -- -- 12/29/24 1714 (!) 184/105 -- -- 70 -- -- 12/29/24 1634 (!) 198/116 98.1 ??F (36.7 ??C) Oral 77 20 97 % 12/29/24 1500 (!) 192/115 -- -- 77 -- 93 % 12/29/24 1425 -- -- -- -- -- 93 % 12/29/24 1359 (!) 203/100 98.3 ??F (36.8 ??C) Oral 74 -- 94 % PHYSICAL EXAM: General: patient seen resting in bed, no acute distress Resp: no respiratory distress, breathing comfortably on room air. Abdomen: soft, mild distension with epigastric TTP without rebound or guarding. Output by Drain (mL) 12/28/24 0700 - 12/28/24 1459 12/28/24 1500 - 12/28/24 2259 12/28/24 2300 - 12/29/24 0659 12/29/24 0700 - 12/29/24 1459 12/29/24 1500 - 12/29/24 2259 12/29/24 2300 - 12/30/24 0659 12/30/24 0700 - 12/30/24 1236 Patient has no LDAs of requested type attached. Extremities: warm and well perfused 12/29 699 - 12/30 0659 In: 2969 [I.V.:[id number]] Out: - Admission on 12/27/2024 Component Date Value Color Urine 12/27/2024 Yellow Appearance Urine 12/27/2024 Clear Glucose Urine 12/27/2024 Negative Bilirubin Urine 12/27/2024 Negative Ketones Urine 12/27/2024 Negative Specific [place] Urine 12/27/2024 1.010 Blood Urine 12/27/2024 >1.0 mg/dL (A) pH Urine 12/27/2024 6.0 Protein Albumin Urine 12/27/2024 70 (A) Urobilinogen Urine 12/27/2024 Normal Nitrite Urine 12/27/2024 Negative Leukocyte Esterase Urine 12/27/2024 Negative Mucus Urine 12/27/2024 Present (A) RBC Urine 12/27/2024 >182 (H) WBC Urine 12/27/2024 0 Ventricular Rate 12/27/2024 89 Atrial Rate 12/27/2024 89 VT Interval 12/27/2024 170 QRS Duration 12/27/2024 80 QT 12/27/2024 364 QTc 12/27/2024 442 P [place] 12/27/2024 50 R AXIS 12/27/2024 232 T [place] 12/27/2024 80 Interpretation ECG 12/27/2024 Value:Sinus rhythm Indeterminate axis Borderline ECG When compared with ECG of 16-Jul-2023 12:18, Questionable change in QRS axis T wave amplitude has increased in Inferior leads Confirmed by SEE ED PROVIDER NOTE FOR, ECG INTERPRETATION ([id number]), market editor Pavan Browne () on 12/28/2024 1:00:45 PM Sodium 12/27/2024 139 Potassium 12/27/2024 4.6 Chloride 12/27/2024 102 Carbon Dioxide (CO2) 12/27/2024 30 (H) Anion Gap 12/27/2024 7 Urea Nitrogen 12/27/2024 7.9 Creatinine 12/27/2024 0.98 GFR Estimate 12/27/2024 >90 Calcium 12/27/2024 9.5 Glucose 12/27/2024 204 (H) Protein Total 12/27/2024 6.7 Albumin 12/27/2024 4.2 Bilirubin Total 12/27/2024 0.8 Alkaline Phosphatase 12/27/2024 63 AST 12/27/2024 24 ALT 12/27/2024 38 Bilirubin Direct 12/27/2024 0.19 Lipase 12/27/2024 78 (H) Troponin T, High Sensiti* 12/27/2024 15 WBC Count 12/27/2024 9.9 RBC Count 12/27/2024 4.95 Hemoglobin 12/27/2024 15.7 Hematocrit 12/27/2024 44.8 MCV 12/27/2024 91 MCH 12/27/2024 31.7 MCHC 12/27/2024 35.0 RDW 12/27/2024 13.2 Platelet Count 12/27/2024 240 % Neutrophils 12/27/2024 70 % Lymphocytes 12/27/2024 18 % Monocytes 12/27/2024 7 % Eosinophils 12/27/2024 4 % Basophils 12/27/2024 1 % Immature Granulocytes 12/27/2024 1 NRBCs per 100 WBC 12/27/2024 0 Absolute Neutrophils 12/27/2024 6.9 Absolute Lymphocytes 12/27/2024 1.8 Absolute Monocytes 12/27/2024 0.7 Absolute Eosinophils 12/27/2024 0.4 Absolute Basophils 12/27/2024 0.1 Absolute Immature Granul* 12/27/2024 0.1 Absolute NRBCs 12/27/2024 0.0 Radiologist flags 12/27/2024 Perforated viscus (AA) Troponin T, High Sensiti* 12/27/2024 14 Lactic Acid, Initial 12/27/2024 2.0 INR 12/27/2024 1.01 PT 12/27/2024 13.5 aPTT 12/27/2024 22 ABO/RH(D) 12/27/2024 A POS Antibody Screen 12/27/2024 Negative SPECIMEN EXPIRATION DATE 12/27/2024 12/30/2024 11:59:00 PM CDT Culture 12/27/2024 No growth after 3 days Culture 12/27/2024 No growth after 3 days GLUCOSE BY METER POCT 12/27/2024 176 (H) GLUCOSE BY METER POCT 12/27/2024 174 (H) Sodium 12/28/2024 134 (L) Potassium 12/28/2024 4.1 Chloride 12/28/2024 97 (L) Carbon Dioxide (CO2) 12/28/2024 29 Anion Gap 12/28/2024 8 Urea Nitrogen 12/28/2024 8.2 Creatinine 12/28/2024 1.02 GFR Estimate 12/28/2024 >90 Calcium 12/28/2024 8.9 Glucose 12/28/2024 180 (H) WBC Count 12/28/2024 13.5 (H) RBC Count 12/28/2024 4.55 Hemoglobin 12/28/2024 13.9 Hematocrit 12/28/2024 42.6 MCV 12/28/2024 94 MCH 12/28/2024 30.5 MCHC 12/28/2024 32.6 RDW 12/28/2024 13.7 Platelet Count 12/28/2024 212 GLUCOSE BY METER POCT 12/28/2024 174 (H) Estimated Average Glucose 12/28/2024 189 (H) Hemoglobin A1C 12/28/2024 8.2 (H) GLUCOSE BY METER POCT 12/28/2024 189 (H) GLUCOSE BY METER POCT 12/28/2024 185 (H) GLUCOSE BY METER POCT 12/28/2024 178 (H) GLUCOSE BY METER POCT 12/28/2024 152 (H) Ventricular Rate 12/28/2024 79 Atrial Rate 12/28/2024 79 VT Interval 12/28/2024 176 QRS Duration 12/28/2024 88 QT 12/28/2024 396 QTc 12/28/2024 454 P [place] 12/28/2024 27 R AXIS 12/28/2024 -13 T [place] 12/28/2024 49 Interpretation ECG 12/28/2024 Value:Sinus rhythm RSR' in V1 Inferior infarct , age undetermined Abnormal ECG When compared with ECG of 27-Dec-2024 07:42, Inferior infarct is now Present Confirmed by FARRAH RODRIGEZ MD LOC: ([id number]) on 12/29/2024 4:29:30 PM GLUCOSE BY METER POCT 12/28/2024 152 (H) GLUCOSE BY METER POCT 12/28/2024 146 (H) Sodium 12/29/2024 135 Potassium 12/29/2024 4.0 Chloride 12/29/2024 97 (L) Carbon Dioxide (CO2) 12/29/2024 28 Anion Gap 12/29/2024 10 Urea Nitrogen 12/29/2024 9.0 Creatinine 12/29/2024 0.98 GFR Estimate 12/29/2024 >90 Calcium 12/29/2024 9.0 Glucose 12/29/2024 139 (H) WBC Count 12/29/2024 14.3 (H) RBC Count 12/29/2024 4.21 (L) Hemoglobin 12/29/2024 13.5 Hematocrit 12/29/2024 39.9 (L) MCV 12/29/2024 95 MCH 12/29/2024 32.1 MCHC 12/29/2024 33.8 RDW 12/29/2024 13.8 Platelet Count 12/29/2024 207 GLUCOSE BY METER POCT 12/29/2024 135 (H) GLUCOSE BY METER POCT 12/29/2024 138 (H) GLUCOSE BY METER POCT 12/29/2024 148 (H) GLUCOSE BY METER POCT 12/29/2024 111 (H) GLUCOSE BY METER POCT 12/29/2024 126 (H) GLUCOSE BY METER POCT 12/29/2024 117 (H) WBC Count 12/30/2024 16.8 (H) RBC Count 12/30/2024 4.33 (L) Hemoglobin 12/30/2024 13.4 Hematocrit 12/30/2024 41.1 MCV 12/30/2024 95 MCH 12/30/2024 30.9 MCHC 12/30/2024 32.6 RDW 12/30/2024 13.5 Platelet Count 12/30/2024 230 Sodium 12/30/2024 134 (L) Potassium 12/30/2024 4.6 Chloride 12/30/2024 95 (L) Carbon Dioxide (CO2) 12/30/2024 29 Anion Gap 12/30/2024 10 Urea Nitrogen 12/30/2024 7.2 Creatinine 12/30/2024 0.99 GFR Estimate 12/30/2024 >90 Calcium 12/30/2024 9.3 Glucose 12/30/2024 122 (H) GLUCOSE BY METER POCT 12/30/2024 112 (H) GLUCOSE BY METER POCT 12/30/2024 117 (H) GLUCOSE BY METER POCT 12/30/2024 130 (H) GLUCOSE BY METER POCT 12/30/2024 132 (H) Portia Gandhi PA-C [facility] [address] [place] [address]? Office: [phone] * Pam Barraza MD - 12/30/2024 10:04 AM CDT [facility] Progress Note - Hospitalist Service Date of Admission: 12/27/2024 Assessment & Plan Viet Cash is a 44 year old male admitted on 12/27/2024. He has a history of known gastric ulcers with GI bleed in Jul, 2023, T2DM, MEI, and obesity and is admitted for a perforated gastric ulcer. Acute gastric ulcer with perforation Presented to ER with epigastric pain. History of hospitalization due to GI bleed in Jul with EGD confirming gastric ulcers. Recommendations for interval endoscopy, PPI, and avoidance of NSAIDS. Reports that he took PPI for 1-2 weeks without repeat EGD done. He reports NSAID use with up to 9tablets aleve daily for chronic back pain. CT showed perforated gastric ulcer that appears to arise from the posterior antrum/pylorus. Trace adjacent pneumoperitoneum and free fluid, though no large/drainable collection. General surgery recommending conservative management at this time. -general surgery consulted, appreciate recommendations -serial abdominal exams -low threshold for surgery if clinically worsens including signs of sepsis, worsening abdominal pain, diffuse peritonitis -planning for UGI study this afternoon -strict NPO -IV Zosyn & Diflucan -Pain controlled with ASSISTANT HALL DIRECTOR morphine pump -mIVF LR 150mL/hr -IV PPI BID -PRN zofran for nausea/vomiting -blood cultures: NGTD -cardiac telemetry -daily BMP, CBC Left Ureteral colic Microscopic hematuria Pt reported intermittent right flank pain for the past week. Known history of nephrolithiasis. CT showed 6 and 8mm stones seen in L distal ureter without significant upstream hydronephrosis. Extensive bilateral nonobstructing nephrolithiasis similar to slightly increased compared to 07/16/23. Creatinine is normal at 0.98. UA positive for microscopic hematuria. Patient endorsing more right sided abdominal/groin pain today. -urology consult, appreciate recommendations. Signed off 12/28 - trial of passage given current perforated gastric ulcer -Flomax 0.4mg at bedtime (once no longer NPO) -will need outpatient noncontrast CT follow-up with urology in 3-4 weeks (ordered) -daily BMP Hypertensive Urgency Essential Hypertension BP elevated to 220s/130s in ED concerning for hypertensive urgency. History of hypertension. 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 Suspect BP elevation is largely secondary to pain in the setting of perforated gastric ulcer. BMP WNL. -holding ANNEALING OVEN OPERATOR amlodipine 10mg due to NPO -daily BMP Type 2 Diabetes Mellitus Glucose in ED elevated at 204. A1c 8.2. -glucose checks Q4hr -sliding scale insulin -may require initiation of Lantus while admitted MEI -CPAP ordered overnight Diet: NPO for Medical/Clinical Reasons Except for: No Exceptions DVT Prophylaxis: Pneumatic Compression Devices Lawler Catheter: Not present Fluids: LR 75 mL/hr Lines: None Cardiac Monitoring: ACTIVE order. Indication: Chest pain/ ACS rule out (24 hours) Code Status: Full Code Clinically Significant Risk Factors # Hyponatremia: Lowest Na = 134 mmol/L in last 2 days, will monitor as appropriate # Hypochloremia: Lowest Cl = 95 mmol/L in last 2 days, will monitor as appropriate # Hypertension: Noted on problem list # DMII: A1C = 8.2 % (Ref range: <5.7 %) within past 6 months, PRESENT ON ADMISSION # Morbid Obesity: Estimated body mass index is 41.21 kg/m?? as calculated from the following: Height as of this encounter: 1.803 m (5' 11). Weight as of this encounter: 134 kg (295 lb 7 oz)., PRESENT ON ADMISSION Social Drivers of [employer] Tobacco Use: High Risk (10/28/2023) Received from [employer] Patient History Smoking Tobacco Use: Every Day Smokeless Tobacco Use: Former Disposition Plan Medically Ready for Discharge: Anticipated in 2-4 Days The patient's care was discussed with the Jose. Pam Barraza MD Hospitalist Service [facility] Securely message with [employer] (more info) Text page via [employer] Paging/Directory Interval History No acute events overnight. Pain better controlled on ASSISTANT HALL DIRECTOR Morphine pump. Remains NPO. Patient reports he can feel kidney stone in right groin Physical Exam Vital Signs: Temp: 98.7 ??F (37.1 ??C) Temp src: Oral BP: (!) 179/102 Pulse: 79 Resp: 22 SpO2: 93 %O2 Device: Nasal cannula Oxygen Delivery: 3 LPM Weight: 295 lbs 7 oz Constitutional: awake, alert, cooperative, no apparent distress Respiratory: No increased work of breathing, good air exchange, clear to auscultation bilaterally, no crackles or wheezing Cardiovascular: Normal apical impulse, regular rate and rhythm, no lower extremity edema GI: bowel sounds present, moderately distended, severe epigastric tenderness to palpation with guarding, no rebound tenderness in the lower abdominal quadrants, no masses palpated, no hepatosplenomegally Skin: no bruising or bleeding, no rashes, and no jaundice Neurologic: Awake, alert, oriented to name, place and time. Cranial nerves II- XII are grossly intact. Moving all extremities Neuropsychiatric: appropriate mentation and affect Medical Decision Making Data I have personally reviewed the following data over the past 24 hrs: 16.8 (H) \ 13.4 / 230 134 (L) 95 (L) 7.2 / 130 (H) 4.6 29 0.99 \ Imaging results reviewed over the past 24 hrs: No results found for this or any previous visit (from the past 24 hours). Cosigned by Viet Gonzalez MD at 12/30/2024 11:48 AM CDT Associated attestation - Viet Gonzalez MD - 12/30/2024 11:48 AM CDT Faculty Supervision of Residents I have examined Viet Cash, : 1980, on 12/30/2024 and the medical care has been evaluatedand discussed with the resident. I agree with the medical care provided, confirm the findings after personally reviewing the images and labs, and agree with the plan documented in the note by Dr. Pam Barraza. Viet Gonzalez III, MD, [facility] [employer] Residency Faculty 12/30/24 11:47 AM * Jhonny Arrieta RT - 12/30/2024 1:11 AM CDT Patient has his home CPAP unit in the room, but does not want to use it, and states will use oxygen instead. RT will be available as needed. * Luis Ferrara MD - 12/30/2024 12:10 AM CDT HTN to 201/108, previously received 10 mg labetalol ~5 pm, did not appear to get therapeutic effect. HR 85, remainder VSS. -Trial labetalol 20 mg q6h PRN for SBP >190 or DBP >100 * Pam Barraza MD - 12/29/2024 11:22 AM CDT [facility] Progress Note - Hospitalist Service Date of Admission: 12/27/2024 Assessment & Plan Viet Cash is a 44 year old male admitted on 12/27/2024. He has a history of known gastric ulcers with GI bleed in Jul, 2023, T2DM, MEI, and obesity and is admitted for a perforated gastric ulcer. Acute gastric ulcer with perforation Presented to ER with epigastric pain. History of hospitalization due to GI bleed in Jul with EGD confirming gastric ulcers. Recommendations for interval endoscopy, PPI, and avoidance of NSAIDS. Reports that he took PPI for 1-2 weeks without repeat EGD done. He reports NSAID use with up to 9tablets aleve daily for chronic back pain. CT showed perforated gastric ulcer that appears to arise from the posterior antrum/pylorus. Trace adjacent pneumoperitoneum and free fluid, though no large/drainable collection. General surgery recommending conservative management at this time. -general surgery consulted, appreciate recommendations -serial abdominal exams -low threshold for surgery if clinically worsens including signs of sepsis, worsening abdominal pain, diffuse peritonitis -planning for UGI on 12/30 -strict NPO -IV Zosyn & Diflucan -Pain controlled with IV morphine 4 mg q2hrs. Can consider starting ASSISTANT HALL DIRECTOR to optimize pain control. -mIVF LR 150mL/hr -IV PPI BID -PRN zofran for nausea/vomiting -blood cultures pending -cardiac telemetry -daily BMP, CBC Left Ureteral colic Microscopic hematuria Pt reported intermittent right flank pain for the past week. Known history of nephrolithiasis. CT showed 6 and 8mm stones seen in L distal ureter without significant upstream hydronephrosis. Extensive bilateral nonobstructing nephrolithiasis similar to slightly increased compared to 07/16/23. Creatinine is normal at 0.98. UA positive for microscopic hematuria. -urology consult, appreciate recommendations. Signed off 12/28 - trail of passage given current perforated gastric ulcer -Flomax 0.4mg at bedtime (once no longer NPO) -will need outpatient noncontrast CT follow-up with urology in 3-4 weeks (ordered) -daily BMP Hypertensive Urgency Essential Hypertension BP elevated to 220s/130s in ED concerning for hypertensive urgency. History of hypertension. 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 Suspect BP elevation is largely secondary to pain in the setting of perforated gastric ulcer. BMP WNL. -holding ANNEALING OVEN OPERATOR amlodipine 10mg due to NPO -daily BMP Type 2 Diabetes Mellitus Glucose in ED elevated at 204. A1c 8.2. -glucose checks Q4hr -sliding scale insulin -may require initiation of Lantus while admitted MEI -CPAP ordered overnight Diet: NPO for Medical/Clinical Reasons Except for: No Exceptions DVT Prophylaxis: Pneumatic Compression Devices Lawler Catheter: Not present Fluids: LR 75 mL/hr Lines: None Cardiac Monitoring: ACTIVE order. Indication: Hypertensive Urgency Code Status: Full Code Clinically Significant Risk Factors # Hyponatremia: Lowest Na = 134 mmol/L in last 2 days, will monitor as appropriate # Hypochloremia: Lowest Cl = 97 mmol/L in last 2 days, will monitor as appropriate # Hypertension: Noted on problem list # DMII: A1C = 8.2 % (Ref range: <5.7 %) within past 6 months, PRESENT ON ADMISSION # Morbid Obesity: Estimated body mass index is 41.21 kg/m?? as calculated from the following: Height as of this encounter: 1.803 m (5' 11). Weight as of this encounter: 134 kg (295 lb 7 oz)., PRESENT ON ADMISSION Social Drivers of Health Tobacco Use: High Risk (10/28/2023) Received from [employer] Patient History Smoking Tobacco Use: Every Day Smokeless Tobacco Use: Former Disposition Plan Medically Ready for Discharge: Anticipated in 2-4 Days The patient's care was discussed with the Jose. Pam Barraza MD Hospitalist Service [facility] Securely message with [employer] (more info) Text page via [facility] Paging/Directory Interval History No acute events overnight. Pain better controlled on PRN Morphine. Remains NPO. Patient reports he can feel kidney stone in right groin Physical Exam Vital Signs: Temp: 97.8 ??F (36.6 ??C) Temp src: Oral BP: (!) 170/109 Pulse: 74 Resp: 20 SpO2: 92 %O2 Device: Nasal cannula Oxygen Delivery: 3 LPM Weight: 295 lbs 7 oz Constitutional: awake, alert, cooperative, uncomfortable appearing, no apparent distress Respiratory: No increased work of breathing, good air exchange, clear to auscultation bilaterally, no crackles or wheezing Cardiovascular: Normal apical impulse, regular rate and rhythm, no lower extremity edema GI: bowel sounds present, moderately distended, severe epigastric tenderness to palpation with guarding, no rebound tenderness in the lower abdominal quadrants, no masses palpated, no hepatosplenomegally Skin: no bruising or bleeding, no rashes, and no jaundice Neurologic: Awake, alert, oriented to name, place and time. Cranial nerves II- XII are grossly intact. Moving all extremities Neuropsychiatric: appropriate mentation and affect Medical Decision Making Data I have personally reviewed the following data over the past 24 hrs: 14.3 (H) \ 13.5 / 207 135 97 (L) 9.0 / 148 (H) 4.0 28 0.98 \ Imaging results reviewed over the past 24 hrs: No results found for this or any previous visit (from the past 24 hours). Cosigned by Viet Gonzalez MD at 12/29/2024 4:23 PM CDT Associated attestation - Viet Gonzalez MD - 12/29/2024 4:23 PM CDT Faculty Supervision of Residents I have examined Viet Cash, : 1980, on 12/29/2024 and the medical care has been evaluatedand discussed with the resident. I agree with the medical care provided, confirm the findings after personally reviewing the images and labs, and agree with the plan documented in the note by Dr. Pam Barraza. Start ASSISTANT HALL DIRECTOR. Viet Gonzalez III, MD, FAAFP [facility] 12/29/24 4:23 PM * Marko Busch DO - 12/29/2024 8:27 AM CDT General Surgery Progress Note Hospital Day # 2 Subjective: CC:posterior gastric perforation Status:pain is about the same, afebrile Vitals: 12/29/24 0518 12/29/24 0606 12/29/24 0741 12/29/24 0805 BP: (!) 183/109 (!) 166/87 (!) 178/104 (!) 170/109 BP Location: Right arm Left arm Left arm Pulse: 74 Resp: 20 Temp: 97.8 ??F (36.6 ??C) TempSrc: Oral SpO2: 92% Weight: Height: Physical Exam: General: NAD, pleasant ABD: soft, mild ttp in epigastric region, no peritoneal findings EXT:no CCE Recent Labs Lab 12/29/24 0653 WBC 14.3* HGB 13.5 HCT 39.9* PLT 207 Recent Labs Lab 12/29/24 0653 12/28/24 0705 12/27/24 0746 NA 135 < > 139 CO2 28 < > 30* BUN 9.0 < > 7.9 ALBUMIN -- -- 4.2 ALKPHOS -- -- 63 ALT -- -- 38 AST -- -- 24 < > = values in this interval not displayed. Assessment: Gastric perforation- contained Plan: -continue with strict npo. Upper gi tomorrow morning to assess containment -continue iv ABX, and antifungals -IV PPI - will continue to follow Robi Busch DO [facility] Surgery * Pam Barraza MD - 12/28/2024 11:25 AM CDT [facility] Progress Note - Hospitalist Service Date of Admission: 12/27/2024 Assessment & Plan Viet Cash is a 44 year old male admitted on 12/27/2024. He has a history of known gastric ulcers with GI bleed in Jul, 2023, T2DM, MEI, and obesity and is admitted for a perforated gastric ulcer. Acute gastric ulcer with perforation Presented to ER with epigastric pain. History of hospitalization due to GI bleed in Jul with EGD confirming gastric ulcers. Recommendations for interval endoscopy, PPI, and avoidance of NSAIDS. Reports that he took PPI for 1-2 weeks without repeat EGD done. He reports NSAID use with up to 9tablets aleve daily for chronic back pain. CT showed perforated gastric ulcer that appears to arise from the posterior antrum/pylorus. Trace adjacent pneumoperitoneum and free fluid, though no large/drainable collection. General surgery recommending conservative management at this time. -general surgery consulted, appreciate recommendations -serial abdominal exams -low threshold for surgery if clinically worsens including signs of sepsis, worsening abdominal pain, diffuse peritonitis -planning for UGI on 12/30 -strict NPO -IV Zosyn & Diflucan -IV morphine 4mg q2hrs PRN -mIVF LR 150mL/hr -IV PPI BID -PRN zofran for nausea/vomiting -blood cultures pending -cardiac telemetry -daily BMP, CBC Left Ureteral colic Microscopic hematuria Pt reported intermittent right flank pain for the past week. Known history of nephrolithiasis. CT showed 6 and 8mm stones seen in L distal ureter without significant upstream hydronephrosis. Extensive bilateral nonobstructing nephrolithiasis similar to slightly increased compared to 07/16/23. Creatinine is normal at 0.98. UA positive for microscopic hematuria. -urology consult, appreciate recommendations. Signed off 12/28 - trail of passage given current perforated gastric ulcer -Flomax 0.4mg at bedtime (once no longer NPO) -will need outpatient noncontrast CT follow-up with urology in 3-4 weeks (ordered) -daily BMP Hypertensive Urgency Essential Hypertension BP elevated to 220s/130s in ED concerning for hypertensive urgency. History of hypertension. 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 Suspect BP elevation is largely secondary to pain in the setting of perforated gastric ulcer. BMP WNL. BP improved to 173/100 after IV morphine for pain control. Required IV labetalol overnight. -holding ANNEALING OVEN OPERATOR amlodipine 10mg due to NPO -daily BMP Type 2 Diabetes Mellitus Glucose in ED elevated at 204. A1c 8.2. -glucose checks Q4hr -sliding scale insulin -may require initiation of Lantus while admitted MEI -CPAP ordered overnight Diet: NPO for Medical/Clinical Reasons Except for: No Exceptions DVT Prophylaxis: Pneumatic Compression Devices Lawler Catheter: Not present Fluids: LR 75 mL/hr Lines: None Cardiac Monitoring: ACTIVE order. Indication: Hypertensive Urgency Code Status: Full Code Clinically Significant Risk Factors # Hyponatremia: Lowest Na = 134 mmol/L in last 2 days, will monitor as appropriate # Hypochloremia: Lowest Cl = 97 mmol/L in last 2 days, will monitor as appropriate # Hypertension: Noted on problem list # DMII: A1C = 8.2 % (Ref range: <5.7 %) within past 6 months, PRESENT ON ADMISSION # Morbid Obesity: Estimated body mass index is 41.21 kg/m?? as calculated from the following: Height as of this encounter: 1.803 m (5' 11). Weight as of this encounter: 134 kg (295 lb 7 oz)., PRESENT ON ADMISSION Social [employer] Tobacco Use: High Risk (10/28/2023) Received from [employer] Patient History Smoking Tobacco Use: Every Day Smokeless Tobacco Use: Former Disposition Plan Medically Ready for Discharge: Anticipated in 2-4 Days The patient's care was discussed with the Edwardnedaniela. Pam Barraza MD Hospitalist Service [facility] Securely message with [employer] (more info) Text page via [employer] Paging/Directory Interval History No acute events overnight. Pain better controlled on PRN Morphine. Remains NPO. Physical Exam Vital Signs: Temp: 98.5 ??F (36.9 ??C) Temp src: Oral BP: 135/83 Pulse: 77 Resp: 18 SpO2: 94 % O2 Device: Oxymask Oxygen Delivery: 3 LPM Weight: 295 lbs 7 oz Constitutional: awake, alert, cooperative, uncomfortable appearing, no apparent distress Respiratory: No increased work of breathing, good air exchange, clear to auscultation bilaterally, no crackles or wheezing Cardiovascular: Normal apical impulse, regular rate and rhythm, no lower extremity edema GI: bowel sounds present, moderately distended, severe epigastric tenderness to palpation with guarding, no rebound tenderness in the lower abdominal quadrants, no masses palpated, no hepatosplenomegally Skin: no bruising or bleeding, no rashes, and no jaundice Neurologic: Awake, alert, oriented to name, place and time. Cranial nerves II- XII are grossly intact. Moving all extremities Neuropsychiatric: appropriate mentation and affect Medical Decision Making Data I have personally reviewed the following data over the past 24 hrs: 13.5 (H) \ 13.9 / 212 134 (L) 97 (L) 8.2 / 178 (H) 4.1 29 1.02 \ TSH: N/A T4: N/A A1C: 8.2 (H) Imaging results reviewed over the past 24 hrs: No results found for this or any previous visit (from the past 24 hours). Cosigned by Colin Garcia MD at 12/28/2024 1:58 PM CDT Associated attestation - Colin Garcia MD - 12/28/2024 1:58 PM CDT Faculty Supervision of Residents I have examined this patient on 12/28/2024 and the medical care has been evaluated and discussed with the resident. The documentation has been reviewed. I agree with the medical care provided and confirm the findings. Colin Garcia MD * Marko Busch, - 12/28/2024 10:05 AM CDT General Surgery Progress Note: Hospital Day # 1 ASSESSMENT: 1. Acute gastric ulcer with perforation (H) 2. Upper abdominal pain 3. Right sided abdominal pain 4. Ureteral colic 5. Hypertension, unspecified type 6. Ureteral stone Viet Cash is a 44 year old male with known hx of PUD and is currently admitted for perforated gastric ulcer appearing contained at this time. Vitals without fever, tachcyardia. Had hypertension overnight managed with labetolol. Persistent epigastric abdominal pain relieved with IV morphine. Labs notable for leukocytosis (WBC 13.5<9.9). On exam, he is well appearing lying comfortably in bed. He is tender in is epigastrium with focal peritonitis. Recommend to continue strict NPO diet with plan for UGI on 12/30 in the setting persistence stability. Low threshold for surgery in the setting of clinical worsening. PLAN: -Strict NPO -MIVF -IV PPI BID -IV pain control -[place] [facility]Surgery to follow with plan for UGI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 distress, and appears stated age Eyes: PERRL, conjunctiva/corneas clear, EOM's intact; no scleral edema or icterus noted ENT: Normocephalic, without obvious abnormality, atraumatic, Lips, mucosa, and tongue normal Lungs: Normal respiratory effort, no accessory muscle use Cardiovascular: Regular rate and rhythm Abdomen: Obese, soft, moderately distended with severe epigastric TTP with focal involuntary guarding. No further rebound or guarding noted. Musculoskeletal: No obvious swelling, bruising or deformity Skin: Skin color and texture normal for patient, no rashes or lesions Data: All imaging studies reviewed by me. Results for orders placed or performed during the hospital encounter of 12/27/24 (from the past 24 hours) CBC with platelets + differential Narrative The following orders were created for panel order CBC with platelets + differential. Procedure Abnormality Status --------- ------ CBC with platelets and ...[[id number]] Final result Please view results for these tests on the individual orders. Basic metabolic panel Result Value Ref Range Sodium 139 135 - 145 mmol/L Potassium 4.6 3.4 - 5.3 mmol/L Chloride 102 98 - 107 mmol/L Carbon Dioxide (CO2) 30 (H) 22 - 29 mmol/L Anion Gap 7 7 - 15 mmol/L Urea Nitrogen 7.9 6.0 - 20.0 mg/dL Creatinine 0.98 0.67 - 1.17 mg/dL GFR Estimate >90 >60 mL/min/1.73m2 Calcium 9.5 8.8 - 10.4 mg/dL Glucose 204 (H) 70 - 99 mg/dL Hepatic function panel Result Value Ref Range Protein Total 6.7 6.4 - 8.3 g/dL Albumin 4.2 3.5 - 5.2 g/dL Bilirubin Total 0.8 <=1.2 mg/dL Alkaline Phosphatase 63 40 - 150 U/L AST 24 0 - 45 U/L ALT 38 0 - 70 U/L Bilirubin Direct 0.19 0.00 - 0.30 mg/dL Lipase Result Value Ref Range Lipase 78 (H) 13 - 60 U/L Troponin T, High Sensitivity Result Value Ref Range Troponin T, High Sensitivity 15 <=22 ng/L CBC with platelets and differential Result Value Ref Range WBC Count 9.9 4.0 - 11.0 10e3/uL RBC Count 4.95 4.40 - 5.90 10e6/uL Hemoglobin 15.7 13.3 - 17.7 g/dL Hematocrit 44.8 40.0 - 53.0 % MCV 91 78 - 100 fL MCH 31.7 26.5 - 33.0 pg MCHC 35.0 31.5 - 36.5 g/dL RDW 13.2 10.0 - 15.0 % Platelet Count 240 150 - 450 10e3/uL % Neutrophils 70 % % Lymphocytes 18 % % Monocytes 7 % % Eosinophils 4 % % Basophils 1 % % Immature Granulocytes 1 % NRBCs per 100 WBC 0 <1 /100 Absolute Neutrophils 6.9 1.6 - 8.3 10e3/uL Absolute Lymphocytes 1.8 0.8 - 5.3 10e3/uL Absolute Monocytes 0.7 0.0 - 1.3 10e3/uL Absolute Eosinophils 0.4 0.0 - 0.7 10e3/uL Absolute Basophils 0.1 0.0 - 0.2 10e3/uL Absolute Immature Granulocytes 0.1 <=0.4 10e3/uL Absolute NRBCs 0.0 10e3/uL ABO/Rh type and screen Narrative The following orders were created for panel order ABO/Rh type and screen. Procedure Abnormality Status --------- ------ Adult Type and Screen[[id number]] Preliminary result Please view results for these tests on the individual orders. Adult Type and Screen Result Value Ref Range ABO/RH(D) A POS SPECIMEN EXPIRATION DATE 12/30/2024 11:59:00 PM CDT CTA Chest Abdomen Pelvis w Contrast Result Value Ref Range Radiologist flags Perforated viscus (AA) Narrative EXAM: CTA CHEST ABDOMEN PELVIS W CONTRAST LOCATION: [facility] DATE: 12/27/2024 INDICATION: epigastric pain and right sided abd pain COMPARISON: CTA chest, CT abdomen pelvis 07/16/2023 TECHNIQUE: CT angiogram chest abdomen pelvis during arterial phase of injection of IV contrast. 2D and 3D MIP reconstructions were performed by the senior cytotechnologist. Dose reduction techniques were used. CONTRAST: 90ml isovue 370 FINDINGS: CT ANGIOGRAM CHEST, ABDOMEN, AND PELVIS: The thoracic aorta is nonaneurysmal without evidence of dissection or other acute abnormality. Proximal arch vessels are normal in appearance with note that the left vertebral artery arises directly from the arch (normal anatomic variant). The abdominal aorta is nonaneurysmal with scattered atheromatous disease but no evidence of dissection or other acute abnormality. The celiac, superior mesenteric, renal and inferior mesenteric arteries are patent without acute abnormality or flow-limiting stenosis. The bilateral common, internal and external iliac arteries as well as common femoral arteries are patent. LUNGS AND PLEURA: Central airways are patent. Centrilobular and paraseptal emphysema. Dependent atelectasis. No areas of consolidation. No pleural effusion. MEDIASTINUM/AXILLAE: Nonenlarged heart. No pericardial effusion. No thoracic lymphadenopathy. CORONARY ARTERY CALCIFICATION: Minimal. HEPATOBILIARY: Hepatic steatosis. No worrisome liver lesions. Cholecystectomy. PANCREAS: Normal. SPLEEN: Normal. ADRENAL GLANDS: Normal. KIDNEYS/BLADDER: Kidneys enhance symmetrically. Nonobstructing nephrolithiasis bilaterally, measuring up to 11 mm in the left lower pole and 9 mm in the right lower pole. There are 6 mm and 8 mm stones in the distal left ureter (series 8 image #90 and #98 respectively) without upstream hydronephrosis. Urinary bladder is unremarkable. BOWEL: Findings consistent with perforated gastric ulcer from the posterior antrum with trace pneumoperitoneum and adjacent free fluid (though no organized/drainable collection). Remainder of small and large bowel is normal in caliber. Appendectomy. LYMPH NODES: Prominent romy hepatis lymph nodes are unchanged and likely reactive. PELVIC ORGANS: Normal contours. MUSCULOSKELETAL: No worrisome bone lesions. Unchanged appearance of the L5 vertebral body. Healed left 6th rib fracture. Impression IMPRESSION: 1. Perforated gastric ulcer, which appears to arise from the posterior antrum/pylorus. Trace adjacent pneumoperitoneum and free fluid, though no large/drainable collection. 2. No acute aortic abnormality. 3. 6 mm and 8 mm stones in the distal left ureter without significant upstream hydronephrosis. Extensive bilateral nonobstructing nephrolithiasis is similar to slightly increased compared to 07/16/2023. 4. Hepatic steatosis. [Critical Result: Perforated viscus] Finding was identified on 12/27/2024 9:[address] Garnica was contacted by me on 12/27/2024 9:24 AM CDT and verbalized understanding of the critical result. Troponin T, High Sensitivity Result Value Ref Range Troponin T, High Sensitivity 14 <=22 ng/L Lactic Acid Whole Blood with 1X Repeat in 2 HR when >2 Result Value Ref Range Lactic Acid, Initial 2.0 0.7 - 2.0 mmol/L INR Result Value Ref Range INR 1.01 0.85 - 1.15 PT 13.5 11.8 - 14.8 Seconds PTT Result Value Ref Range aPTT 22 22 - 38 Seconds Portia Gandhi PA-C [facility] [address] [place] [address]? Office: [phone] * Tabitha Garcia PA-C - 12/27/2024 9:56 AM CDTAssociated Order(s): UROLOGY IP CONSULT [facility] Consult Name: Viet Cash Date of : 1980 We were asked to see Viet Cash in consultation at the request of No ref. provider found or evaluation and treatment of the following chief complaint. Chief Complaint: Ureteral stone History is obtained from pt and EMR. History of Present Illness: Viet Cash is a 44 year old male with newly diagnosed 6 and 8 mm stone in the left distal ureter without. He presented to the ER with epigastric abdominal pain. CT found to have a perforated gastric ulcer and incidental finding of ureteral stones. The patient reports right flank pain intermittently for about 1 week as well. No urinary symptoms. Past Medical History: Past Medical History: Diagnosis Date BMI 40.0-44.9, adult (H) Diabetes (H) Hypertension MEI (obstructive sleep apnea) Past Surgical History: Past Surgical History: Procedure Laterality Date CHOLECYSTECTOMY, LAPOROSCOPIC 1999 Cholecystectomy, Laparoscopic ESOPHAGOSCOPY, GASTROSCOPY, DUODENOSCOPY (EGD), COMBINED N/A 07/17/2023 Procedure: Esophagoscopy, gastroscopy, duodenoscopy (EGD), combined; Surgeon: Karlos Sanchez MD; Location: GI ORTHOPEDIC SURGERY SURGICAL HISTORY OF - 1996 low back surgery Social History: Social History Tobacco Use Smoking status: Every Day Current packs/day: 0.75 Average packs/day: 0.8 packs/day for 10.0 years (7.5 ttl pk-yrs) Types: Cigarettes Smokeless tobacco: Former Substance Use Topics Alcohol use: Yes Alcohol/week: 1.7 standard drinks of alcohol Types: 2 drink(s) per week Family History: Family History Problem Relation Age of Onset Family History Negative Unknown Allergies: Allergies Allergen Reactions Cephalosporins Hives nausea Sulfa Antibiotics Hives Ceclor [Cefaclor] Rash Lisinopril Cough Septra [Bactrim] Nausea and Vomiting Medications: No current facility-administered medications for this encounter. Current Outpatient Medications Medication Sig Dispense Refill acetaminophen (TYLENOL) 500 MG tablet Take 500 mg by mouth every 4 hours as needed for mild pain amLODIPine (NORVASC) 5 MG tablet Take 1 tablet (5 mg) by mouth daily 30 tablet 3 ondansetron (ZOFRAN ODT) 4 MG ODT tab Take 1 tablet (4 mg) by mouth every 6 hours as needed for nausea or vomiting 15 tablet 1 pantoprazole (PROTONIX) 40 MG EC tablet Take 1 tablet (40 mg) by mouth 2 times daily 60 tablet 3 Review of Systems: ROS: 14-point ROS negative other than that noted in the HPI. Physical Exam: VS: T: 97.5 HR: 83 BP: 220/133 RR: 16 PSYCH: NAD EYES: EOMI MOUTH: MMM NECK: Supple, no notable adenopathy RESP: Unlabored breathing CARDIAC: No LE edema SKIN: Warm, no rashes ABD: soft, Nontender NEURO: AAO x3 Data: All laboratory data reviewed: Recent Labs Lab 12/27/24 0746 WBC 9.9 HGB 15.7 PLT 240 Recent Labs Lab 12/27/24 0746 NA 139 POTASSIUM 4.6 CHLORIDE 102 CO2 30* BUN 7.9 CR 0.98 GLC 204* BENNIE 9.5 No lab results found in last 7 days. Invalid input(s): URINEBLOOD Results for orders placed or performed during the hospital encounter of 12/27/24 CTA Chest Abdomen Pelvis w Contrast Value Radiologist flags Perforated viscus (AA) Narrative EXAM: CTA CHEST ABDOMEN PELVIS W CONTRAST LOCATION: [facility] DATE: 12/27/2024 INDICATION: epigastric pain and right sided abd pain COMPARISON: CTA chest, CT abdomen pelvis 07/16/2023 TECHNIQUE: CT angiogram chest abdomen pelvis during arterial phase of injection of IV contrast. 2D and 3D MIP reconstructions were performed by the senior cytotechnologist. Dose reduction techniques were used. CONTRAST: 90ml isovue 370 FINDINGS: CT ANGIOGRAM CHEST, ABDOMEN, AND PELVIS: The thoracic aorta is nonaneurysmal without evidence of dissection or other acute abnormality. Proximal arch vessels are normal in appearance with note that the left vertebral artery arises directly from the arch (normal anatomic variant). The abdominal aorta is nonaneurysmal with scattered atheromatous disease but no evidence of dissection or other acute abnormality. The celiac, superior mesenteric, renal and inferior mesenteric arteries are patent without acute abnormality or flow-limiting stenosis. The bilateral common, internal and external iliac arteries as well as common femoral arteries are patent. LUNGS AND PLEURA: Central airways are patent. Centrilobular and paraseptal emphysema. Dependent atelectasis. No areas of consolidation. No pleural effusion. MEDIASTINUM/AXILLAE: Nonenlarged heart. No pericardial effusion. No thoracic lymphadenopathy. CORONARY ARTERY CALCIFICATION: Minimal. HEPATOBILIARY: Hepatic steatosis. No worrisome liver lesions. Cholecystectomy. PANCREAS: Normal. SPLEEN: Normal. ADRENAL GLANDS: Normal. KIDNEYS/BLADDER: Kidneys enhance symmetrically. Nonobstructing nephrolithiasis bilaterally, measuring up to 11 mm in the left lower pole and 9 mm in the right lower pole. There are 6 mm and 8 mm stones in the distal left ureter (series 8 image #90 and #98 respectively) without upstream hydronephrosis. Urinary bladder is unremarkable. BOWEL: Findings consistent with perforated gastric ulcer from the posterior antrum with trace pneumoperitoneum and adjacent free fluid (though no organized/drainable collection). Remainder of small and large bowel is normal in caliber. Appendectomy. LYMPH NODES: Prominent romy hepatis lymph nodes are unchanged and likely reactive. PELVIC ORGANS: Normal contours. MUSCULOSKELETAL: No worrisome bone lesions. Unchanged appearance of the L5 vertebral body. Healed left 6th rib fracture. Impression IMPRESSION: 1. Perforated gastric ulcer, which appears to arise from the posterior antrum/pylorus. Trace adjacent pneumoperitoneum and free fluid, though no large/drainable collection. 2. No acute aortic abnormality. 3. 6 mm and 8 mm stones in the distal left ureter without significant upstream hydronephrosis. Extensive bilateral nonobstructing nephrolithiasis is similar to slightly increased compared to 07/16/2023. 4. Hepatic steatosis. [Critical Result: Perforated viscus] Finding was identified on 12/27/2024 9:[address] Garnica was contacted by me on 12/27/2024 9:24 AM CDT and verbalized understanding of the critical result. Impression and Plan: Impression: Viet Cash is a 44 year old male with 6 and 8 mm left distal ureteral stone. Today: Afebrile. HTN 220s systolic and 130 diastolic. Hypoxia to 91%. WBC 9.9 (9.3). hbg 15.7 (13.8). Cr 0.98. UA without concern for overt infection. Plan: -Discussed options with the patient including trial of passage vs surgical intervention. At this time, he has elected for TOP. This is reasonable given his perforated gastric ulcer. He does have a history of stones and has passed multiple on his own. -IVF fluids -Flomax 0.4mg QHS - monitor for orthostatic hypotension. -Pain control per primary team. -Repeat outpatient CT AP non contrast in 3-4 weeks (ordered) and follow up with urology. Urology team will reach out to help coordinate. -At this time, urology will sign off. Please reach out with any questions or concerns. Discussed with Dr. Erin Garcia PA-C [facility] Office: [phone] Page: Vocera (MW7:30AM-4PM, Tu 7:30AM-12:30PM, Thursday OFF) Cosigned by Monica Khan MD at 12/29/2024 8:25 AM CDT Associated attestation - Monica Khan MD - 12/29/2024 8:25 AM CDT Physician Attestation I saw and evaluated Viet Cash as part of a shared TRANSMISSION AND COORDINATION ENGINEER/PA visit. I personally reviewed the vital signs, medications, labs, and imaging. This is a 44-year-old male with a history of kidney stone disease and prior stone passage. He presented for abdominal pain and was actually found to have a perforated gastric ulcer but also coincidentally 2 left distal ureteral stones. His urine analysis is unremarkable. I saw him today and he is being conservatively managed for his perforated gastric ulcer. He does endorse some intermittent flank pain now reporting some urinary symptoms like urgency incomplete emptying that is consistent with the stone having progressed to the ureterovesical junction. #1 nephrolithiasis 2 distal ureteral stones. Pain is controlled. Urinalysis is unremarkable. In the setting with his perforated ulcer that is being conservatively managed I think we can see if the stones can pass 2. I reviewed his CT scan and based on interpretation there is numerous other small renal stones as well and a larger one in the lower calyx. The stones are 6 and 8 mm in the distal ureter without significant hydronephrosis. Statistically lower chance of passing less than 50% but with his numerous prior stone passages I think is reasonable to do a trial of passage we will plan to see him back in 2 to 4weeks with another CT scan to check for stone passage. Certainly if he does develop fevers I will check a urine to see if it is related to an obstructing pyelonephritis if that is unremarkable then it could be more related to the perforated viscus I personally provided a substantive portion of care for this patient and I approve the care plan aswritten by the ROSSANA. I was involved with Medical Decision Making including: Please see A&P for additional details of medical decision making. Monica Khan MD Date of Service (when I saw the patient): 12/29/24 documented in this encounter ED Notes * Viet Bojorquez RN - 12/27/2024 3:12 PM CDT Bed: [place] [address] Expected date: Expected time: Means of arrival: Comments: [facility] * Escobar Gonzalez RN - 12/27/2024 2:[address] Lynch notified of pt reporting in creased pain after morphine admin. Requested alternate painmed. * Karely Garnica MD - 12/27/2024 7:34 AM CDT Images from the original note were not included. EMERGENCY DEPARTMENT ENCOUNTER NAME: Viet Cash AGE: [age] year old male DATE OF : 1980 EVALUATION DATE & TIME: 12/27/2024 7:30 AM PCP: [facility] ED PROVIDER: Karely Garnica M.D. Chief Complaint Patient presents with Abdominal Pain FINAL IMPRESSION: 1. Acute gastric ulcer with perforation (H) 2. Upper abdominal pain 3. Right sided abdominal pain 4. Ureteral colic 5. Hypertension, unspecified type 6. Ureteral stone MEDICAL DECISION MAKING: Viet Cash is a 44 year old male with history of hypertension, diabetes, nicotine dependence, obesity, upper GI bleed, who presents to the ER with complaints of upper abdominal pain and right-sided abdominal pain. He states that he has had some right-sided flank pain now for the past 2 weeks and wonders if maybe he is passing a kidney stone. Now overnight he developed epigastric pain. Denies any fevers, cough, chest pain, shortness of breath, vomiting or diarrhea. Denies any hematuria. He has had some nausea. Perforated gastric ulcer and distal ureteral stones. Patient discussed with general surgery and plan is to monitor him and treat with IV antibiotics and antifungals. Strict NPO. Patient was given a dose of his oral blood pressure medications prior to CT imaging results and will remain strict n.p.o.now ongoing. I did speak with the pharmacist about fluconazole dosing and I did follow their recommendations. Patient aware of this plan and agrees. He was accepted to the hospital by the resident service. Consults by general surgery and urology pending. ED COURSE: 7:34 AM I met with the patient to gather history and perform my exam. ED course and treatment discussed. 9:[address] scan results. Patient requesting more pain medication and Dilaudid has been ordered. 9:15 AM Patient's blood pressure still quite elevated. He did not take his amlodipine this morning. He states he takes 10 mg Norvasc daily. This has been ordered. 9:28 AM Radiologist called. He reports that patient does have a perforated gastric ulcer and also findings to suggest a distal kidney stone in the ureter. 9:42 AM Spoke with general surgery who recommends PPI, strict n.p.o., no NSAIDs, IV antibiotics and IV antifungals. No surgery at this time from their standpoint but they will see the patient for ongoing consultation. Updated patient and at bedside and results and they agree with the plan. Will also touch base with urology given the stones. He states he usually follows with [facility]. 9:59 AM Spoke with provider with [facility] who will see this patient in consultation. I have spoken with ED pharmacist and they are going to help do recommendations for IV antifungal in this case. 10:10 AM ED Pharmacist is recommending fluconazole 800 mg IV x 1. Patient has been accepted to the hospital by the resident service. We discussed treatment plan with antibiotics, antifungal, blood pressure management, and pain management. Patient will go to medical telemetry under inpatient status. Residentfeels comfortable with waiting on any more blood pressure management until they see him in the ED in a little bit. I considered ACS, PE, ruptured AAA, aortic dissection, bowel obstruction, bowel ischemia, cholecystitis, pancreatitis, appendicitis, diverticulitis, kidney stone, pyelonephritis, incarcerated or strangulated hernia, testicular torsion, viscus perforation, perforated GI ulcer, and other such etiologies at this time. At the conclusion of the encounter I discussed the results of all of the tests and the disposition.Their questions were answered. The patient (and any family present) acknowledged understanding and were agreeable with the care plan. CONSULTANTS: Hospitalist - [facility] resident Gen Surgery - Dr. Busch Radiologist - Dr.Everett GUTIÉRREZ - Tabitha Garcia PA-C ED pharmacist MEDICATIONS GIVEN IN THE EMERGENCY: Medications piperacillin-tazobactam (ZOSYN) 4.5 g vial to attach to NS 100 mL bag (has no administration in time range) fluconazole (DIFLUCAN) 800 mg in 0.9% NaCl 400 mL intermittent infusion (has no administration in time range) sodium chloride 0.9 % infusion ( Intravenous $New Bag 12/27/24 0754) HYDROmorphone (PF) (DILAUDID) injection 0.5 mg (0.5 mg Intravenous $Given 12/27/24 0753) ondansetron (ZOFRAN) injection 4 mg (4 mg Intravenous $Given 12/27/24 0749) iopamidol (ISOVUE-370) solution 90 mL (90 mLs Intravenous $Given 12/27/24 0857) HYDROmorphone (DILAUDID) injection 1 mg (1 mg Intravenous $Given 12/27/24 0908) amLODIPine (NORVASC) tablet 10 mg (10 mg Oral $Given 12/27/24 0919) pantoprazole (PROTONIX) injection 80 mg (80 mg Intravenous $Given 12/27/24 0933) NEW PRESCRIPTIONS STARTED AT TODAY'S ER VISIT none CONDITION: stable DISPOSITION: Med tele ip as accepted by [facility] resident service TRIAGE ASSESSMENT: Patient arrives by private car for evaluation of mid upper abdominal pain that he woke with at about 0530. Patient also reports pain in his right flank- history of kidney stones. ED Triage Vitals [12/27/24727] Encounter Vitals Group BP (!) 228/127 Systolic BP Percentile Diastolic BP Percentile Pulse 87 Resp 18 Temp 97.5 ??F (36.4 ??C) Temp src SpO2 94 % Weight 134 kg (295 lb 7 oz) HPI Patient information was obtained from: patient and family Use of Intrepreter: N/A Viet Cash is a 44 year old male with history of hypertension, diabetes, nicotine dependence, obesity, upper GI bleed, who presents to the ER with complaints of upper abdominal pain and right-sided abdominal pain. He states that he has had some right-sided flank pain now for the past 2 weeks and wonders if maybe he is passing a kidney stone. Now overnight he developed epigastric pain. Denies any fevers, cough, chest pain, shortness of breath, vomiting or diarrhea. Denies any hematuria. He has had some nausea. He does admit to regular alcohol use but denies any history of known pancreatitis. CHART REVIEW: Chart review shows a family medicine virtual well visit for sinusitis. REVIEW OF SYSTEMS Review of Systems Constitutional: Negative for fever. Respiratory: Negative for cough and shortness of breath. Cardiovascular: Negative for chest pain. Gastrointestinal: Positive for abdominal pain and nausea. Negative for diarrhea and vomiting. Genitourinary: Positive for flank pain (right flank pain). Negative for dysuria and hematuria. All other systems reviewed and are negative. PAST MEDICAL HISTORY: Past Medical History: Diagnosis Date BMI 40.0-44.9, adult (H) Diabetes (H) Hypertension MEI (obstructive sleep apnea) PAST SURGICAL HISTORY: Past Surgical History: Procedure Laterality Date CHOLECYSTECTOMY, LAPOROSCOPIC 1999 Cholecystectomy, Laparoscopic ESOPHAGOSCOPY, GASTROSCOPY, DUODENOSCOPY (EGD), COMBINED N/A 07/17/2023 Procedure: Esophagoscopy, gastroscopy, duodenoscopy (EGD), combined; Surgeon: Karlos Sanchez MD; Location: [facility] SURGICAL HISTORY OF - 1996 low back surgery CURRENT MEDICATIONS: Prior to Admission medications Medication Sig Start Date End Date Taking? Authorizing Provider acetaminophen (TYLENOL) 500 MG tablet Take 500 mg by mouth every 4 hours as needed for mild pain Unknown, Entered By History amLODIPine (NORVASC) 5 MG tablet Take 1 tablet (5 mg) by mouth daily 07/18/23 Celestino Nunez APRN CNP ondansetron (ZOFRAN ODT) 4 MG ODT tab Take 1 tablet (4 mg) by mouth every 6 hours as needed for nausea or vomiting 07/17/23 Celestino Nunez APRN CNP pantoprazole (PROTONIX) 40 MG EC tablet Take 1 tablet (40 mg) by mouth 2 times daily 07/17/23 Celestino Nunez APRN CNP ALLERGIES: Allergies Allergen Reactions Cephalosporins Hives nausea Sulfa Antibiotics Hives Ceclor [Cefaclor] Rash Lisinopril Cough Septra [Bactrim] Nausea and Vomiting FAMILY HISTORY: Family History Problem Relation Age of Onset Family History Negative Unknown SOCIAL HISTORY: Social History Socioeconomic History Marital status: Single Spouse name: zara Number of children: 3 Years of education: 12 Occupational History Employer: [employer] Tobacco Use Smoking status: Every Day Current packs/day: 0.75 Average packs/day: 0.8 packs/day for 10.0 years (7.5 ttl pk-yrs) Types: Cigarettes Smokeless tobacco: Former Substance and Sexual Activity Alcohol use: Yes Alcohol/week: 1.7 standard drinks of alcohol Types: 2 drink(s) per week Drug use: No Sexual activity: Yes Partners: Female VITALS: Patient Vitals for the past 24 hrs: BP Temp Pulse Resp SpO2 Weight 12/27/24 0915 (!) 220/133 -- 83 16 (!) 91 % -- 12/27/24 0905 (!) 226/133 -- 82 18 -- -- 12/27/24 0830 (!) 202/143 -- 81 18 -- -- 12/27/24 0815 (!) 225/139 -- 88 -- 96 % -- 12/27/24 0800 (!) 184/113 -- 83 15 -- -- 12/27/24 0728 (!) 228/127 97.5 ??F (36.4 ??C) 87 18 94 % 134 kg (295 lb 7 oz) Wt Readings from Last 3 Encounters: 12/27/24 134 kg (295 lb 7 oz) 07/16/23 128.9 kg (284 lb 3.2 oz) 10/27/22 135.2 kg (298 lb 1.6 oz) Estimated Creatinine Clearance: 133 mL/min (based on SCr of 0.98 mg/dL). PHYSICAL EXAM Constitutional: Well developed, Well nourished, NAD HENT: Normocephalic, Atraumatic, Bilateral external ears normal, Nose normal. Neck- Supple, No stridor. Eyes: PERRL, EOMI, Conjunctiva normal, No discharge. Respiratory: Normal breath sounds, No respiratory distress, No wheezing, Speaks full sentences easily. No cough. Cardiovascular: Normal heart rate, Regular rhythm, No murmurs , No rubs, No gallops. Chest wall nontender. GI: +obesity. Bowel sounds normal, Soft, +epigastric and right sided tenderness, No masses, No flank tenderness. No rebound or guarding. : deferred Musculoskeletal: No cyanosis, No clubbing. Good range of motion in all major joints. No major deformities noted. Integument: Warm, Dry, No erythema, No rash. No petechiae. Neurologic: Alert & oriented x 3 Psychiatric: Affect normal, Cooperative LAB: All pertinent labs reviewed and interpreted. Recent Results (from the past 24 hours) Basic metabolic panel Collection Time: 12/27/24 7:46 AM Result Value Ref Range Sodium 139 135 - 145 mmol/L Potassium 4.6 3.4 - 5.3 mmol/L Chloride 102 98 - 107 mmol/L Carbon Dioxide (CO2) 30 (H) 22 - 29 mmol/L Anion Gap 7 7 - 15 mmol/L Urea Nitrogen 7.9 6.0 - 20.0 mg/dL Creatinine 0.98 0.67 - 1.17 mg/dL GFR Estimate >90 >60 mL/min/1.73m2 Calcium 9.5 8.8 - 10.4 mg/dL Glucose 204 (H) 70 - 99 mg/dL Hepatic function panel Collection Time: 12/27/24 7:46 AM Result Value Ref Range Protein Total 6.7 6.4 - 8.3 g/dL Albumin 4.2 3.5 - 5.2 g/dL Bilirubin Total 0.8 <=1.2 mg/dL Alkaline Phosphatase 63 40 - 150 U/L AST 24 0 - 45 U/L ALT 38 0 - 70 U/L Bilirubin Direct 0.19 0.00 - 0.30 mg/dL Lipase Collection Time: 12/27/24 7:46 AM Result Value Ref Range Lipase 78 (H) 13 - 60 U/L Troponin T, High Sensitivity Collection Time: 12/27/24 7:46 AM Result Value Ref Range Troponin T, High Sensitivity 15 <=22 ng/L CBC with platelets and differential Collection Time: 12/27/24 7:46 AM Result Value Ref Range WBC Count 9.9 4.0 - 11.0 10e3/uL RBC Count 4.95 4.40 - 5.90 10e6/uL Hemoglobin 15.7 13.3 - 17.7 g/dL Hematocrit 44.8 40.0 - 53.0 % MCV 91 78 - 100 fL MCH 31.7 26.5 - 33.0 pg MCHC 35.0 31.5 - 36.5 g/dL RDW 13.2 10.0 - 15.0 % Platelet Count 240 150 - 450 10e3/uL % Neutrophils 70 % % Lymphocytes 18 % % Monocytes 7 % % Eosinophils 4 % % Basophils 1 % % Immature Granulocytes 1 % NRBCs per 100 WBC 0 <1 /100 Absolute Neutrophils 6.9 1.6 - 8.3 10e3/uL Absolute Lymphocytes 1.8 0.8 - 5.3 10e3/uL Absolute Monocytes 0.7 0.0 - 1.3 10e3/uL Absolute Eosinophils 0.4 0.0 - 0.7 10e3/uL Absolute Basophils 0.1 0.0 - 0.2 10e3/uL Absolute Immature Granulocytes 0.1 <=0.4 10e3/uL Absolute NRBCs 0.0 10e3/uL Adult Type and Screen Collection Time: 12/27/24 7:46 AM Result Value Ref Range ABO/RH(D) A POS SPECIMEN EXPIRATION DATE 12/30/2024 11:59:00 PM CDT CTA Chest Abdomen Pelvis w Contrast Collection Time: 12/27/24 8:58 AM Result Value Ref Range Radiologist flags Perforated viscus (AA) Troponin T, High Sensitivity Collection Time: 12/27/24 9:43 AM Result Value Ref Range Troponin T, High Sensitivity 14 <=22 ng/L Lactic Acid Whole Blood with 1X Repeat in 2 HR when >2 Collection Time: 12/27/24 9:43 AM Result Value Ref Range Lactic Acid, Initial 2.0 0.7 - 2.0 mmol/L INR Collection Time: 12/27/24 9:43 AM Result Value Ref Range INR 1.01 0.85 - 1.15 PT 13.5 11.8 - 14.8 Seconds PTT Collection Time: 12/27/24 9:43 AM Result Value Ref Range aPTT 22 22 - 38 Seconds Lab Results Component Value Date ABORH A POS 12/27/2024 RADIOLOGY: Reviewed all pertinent imaging. Please see official radiology report. CTA Chest Abdomen Pelvis w Contrast Final Result Abnormal IMPRESSION: 1. Perforated gastric ulcer, which appears to arise from the posterior antrum/pylorus. Trace adjacent pneumoperitoneum and free fluid, though no large/drainable collection. 2. No acute aortic abnormality. 3. 6 mm and 8 mm stones in the distal left ureter without significant upstream hydronephrosis. Extensive bilateral nonobstructing nephrolithiasis is similar to slightly increased compared to 07/16/2023. 4. Hepatic steatosis. [Critical Result: Perforated viscus] Finding was identified on 12/27/2024 9:[address] Garnica was contacted by me on 12/27/2024 9:24 AM CDT and verbalized understanding of the critical result. EKG: Indication: epigastric pain Performed at: 07:42a Impression: Sinus rhythm at 89 bpm. There is some motion artifact. No ST elevations appreciated. Flipped T waves noted in lead aVR, aVL and V1-V2. VT interval 170 ms, QRS 80 ms, QTc 442 ms. Overall nonspecific EKG. Specific ST changes compared to July 16, 2023. I have independently reviewed and interpreted the EKG(s) documented above. PROCEDURES: none Medical Decision Making I obtained history from Family Member/Significant Other I reviewed the EMR: Outpatient Record: see HPI I discussed the care with another health care provider: see consults Admit. MIPS (CTPE, Dental pain, [place], Sinusitis, Asthma/COPD, Head Trauma): Not Applicable SEPSIS: None Karely Garnica M.D. [facility] Emergency Medicine and Medical Toxicology Formerly [facility] EMERGENCY DEPARTMENT [facility] [facility] [id number] Dept: [phone] Karely Garnica MD 12/27/24 0653 * Angela Hayes RN - 12/27/2024 7:28 AM CDT Patient arrives by private car for evaluation of mid upper abdominal pain that he woke with at about 0530. Patient also reports pain in his right flank- history of kidney stones. documented in this encounter Miscellaneous Notes * Plan of Care - Umu Daley RN - 01/02/2025 2:31 PM CDT Problem: Adult Inpatient Plan of Care Goal: Plan of Care Review Description: The Plan of Care Review/Shift note should be completed every shift. The Outcome Evaluation is a brief statement about your assessment that the patient is improving, declining, or no change. This information will be displayed automatically on your shift note. Outcome: Adequate for Care Transition Goal Outcome Evaluation: Pt discharged to home via father. 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 Pt verbalizes understanding changes to medications, full liquid diet and follow up appointments. Pt states he has all of his personal items. * Plan of Care - Antolin Garcia RN - 01/02/2025 3:38 AM CDT Problem: Adult Inpatient Plan of Care Goal: Optimal Comfort and Wellbeing Outcome: Progressing Problem: Pain Acute Goal: Optimal Pain Control and Function Outcome: Progressing Intervention: Prevent or Manage Pain Recent Flowsheet Documentation Taken 01/02/2025 0133 by Antolin Garcia, tiler Review/Management: medications reviewed Taken 01/01/20251999 by Antolin Garcia, tiler Review/Management: medications reviewed Problem: Gas Exchange Impaired Goal: Optimal Gas Exchange Outcome: Progressing Intervention: Optimize Oxygenation and Ventilation Recent Flowsheet Documentation Taken 01/02/2025 0133 by Antolin Garcia, RN Head of Bed (HOB) Positioning: HOB at 20-30 degrees Taken 01/01/20251999 by Antolin Garcia RN Head of Bed (HOB) Positioning: HOB at 20-30 degrees Problem: Comorbidity Management Goal: Blood Glucose Levels Within Targeted Range Outcome: Progressing Intervention: Monitor and Manage Glycemia Recent Flowsheet Documentation Taken 01/02/2025 0133 by Antolin Garcia, tiler Review/Management: medications reviewed Taken 01/01/20251999 by Antolin Garcia RN Medication Review/Management: medications reviewed Goal Outcome Evaluation: A/Ox4. VSS except hypertensive 160/87. Pt using 4L O2 while sleeping for comfort; on RA while awake. Reported mild abdominal pain, declined PRN pain medication. Given PRN tylenol and dilaudid for flank pain in morning. Per pt report dilaudid has been ineffective for pain relief. Independent in room. Slept between cares. Antolin Garcia RN * Plan of Care - Venkatesh Barreto RN - 01/01/2025 1:42 AM CDT Goal Outcome Evaluation: Patient preferred to be less disturbed when sleeping. Cares clustered. BG checked every 4 hours. On4 L Oxygen via NC, sats 93%. LR running 150 ml/hr. Tele is NSR. Continues to manage pain via ASSISTANT HALL DIRECTOR morphine. BP noted to be increasing 180/90, 197/105. Iv labetalol requested from Pharmacy. Given iv labetalol at 0440. Follow up BP 149/75 post labetalol. Problem: Adult Inpatient Plan of Care Goal: Plan of Care Review Description: The Plan of Care Review/Shift note should be completed every shift. The Outcome Evaluation is a brief statement about your assessment that the patient is improving, declining, or no change. This information will be displayed automatically on your shift note. 01/01/2025141 by Venkatesh Barreto RN Outcome: Progressing Flowsheets (Taken 01/01/2025141) Plan of Care Reviewed With: patient 12/31/20242201 by Venkatesh Barreto RN Outcome: Progressing Flowsheets (Taken 12/31/20242201) Plan of Care Reviewed With: patient Problem: Pain Acute Goal: Optimal Pain Control and Function 01/01/2025141 by Venkatesh Barreto RN Outcome: Progressing Problem: Gas Exchange Impaired Goal: Optimal Gas Exchange 01/01/2025141 by Venkatesh Barreto RN Outcome: Progressing 12/31/20242201 by Venkatesh Barreto RN Outcome: Progressing Problem: Comorbidity Management Goal: Blood Glucose Levels Within Targeted Range 01/01/2025141 by Venkatesh Barreto RN Outcome: Progressing 12/31/20242201 by Venkatesh Barreto RN Outcome: Progressing Intervention: Monitor and Manage Glycemia Recent Flowsheet Documentation Taken 12/31/20241999 by Venkatesh Barreto RN Medication Review/Management: medications reviewed Plan of Care Reviewed With: patient * Plan of Care - Venkatesh Barreto RN - 12/31/2024 10:02 PM CDT Goal Outcome Evaluation: Patient continues to use ASSISTANT HALL DIRECTOR morphine 2 mg. Has used one dose tonight. Rated abdominal pain 3-4/10.Upper abdomen feels tender with palpation. BG 121, no Novolog insulin given. Continues to take clear liquids and IVF LR 150 ml/hr. Given iv Zosyn. Afebrile. On 4 L Oxygen via NC. Problem: Adult Inpatient Plan of Care Goal: Plan of Care Review Description: The Plan of Care Review/Shift note should be completed every shift. The Outcome Evaluation is a brief statement about your assessment that the patient is improving, declining, or no change. This information will be displayed automatically on your shift note. Outcome: Progressing Flowsheets (Taken 12/31/20242201) Plan of Care Reviewed With: patient Problem: Pain Acute Goal: Optimal Pain Control and Function Intervention: Prevent or Manage Pain Recent Flowsheet Documentation Taken 12/31/20241999 by Venkatesh Barreto RN Medication Review/Management: medications reviewed Problem: Gas Exchange Impaired Goal: Optimal Gas Exchange Outcome: Progressing Problem: Comorbidity Management Goal: Blood Glucose Levels Within Targeted Range Outcome: Progressing Intervention: Monitor and Manage Glycemia Recent Flowsheet Documentation Taken 12/31/20241999 by Venkatesh Barreto RN Medication Review/Management: medications reviewed Plan of Care Reviewed With: patient * Plan of Care - Haley Perez RN - 12/31/2024 7:47 PM CDT Problem: Adult Inpatient Plan of Care Goal: Plan of Care Review Description: The Plan of Care Review/Shift note should be completed every shift. The Outcome Evaluation is a brief statement about your assessment that the patient is improving, declining, or no change. This information will be displayed automatically on your shift note. Outcome: Progressing Goal: Patient-Specific Goal (Individualized) Description: You can add care plan individualizations to a care plan. Examples of Individualizationmight be: Parent requests to be called daily at 9am for status, I have a hard time hearing out of my right ear, or Do not touch me to wake me up as it startles me. Outcome: Progressing Goal: Absence of Hospital-Acquired Illness or Injury Outcome: Progressing Intervention: Identify and Manage Fall Risk Recent Flowsheet Documentation Taken 12/31/2024 1500 by Haley Perez RN Safety Promotion/Fall Prevention: clutter free environment maintained lighting adjusted nonskid shoes/slippers when out of bed safety round/check completed assistive device/personal items within reach Taken 12/31/2024 0800 by Haley Perez RN Safety Promotion/Fall Prevention: clutter free environment maintained lighting adjusted nonskid shoes/slippers when out of bed safety round/check completed assistive device/personal items within reach Intervention: Prevent Skin Injury Recent Flowsheet Documentation Taken 12/31/2024 1500 by Haley Perez RN Body Position: position changed independently Taken 12/31/2024 0800 by Haley Perez RN Body Position: position changed independently Intervention: Prevent and Manage VTE (Venous Thromboembolism) Risk Recent Flowsheet Documentation Taken 12/31/2024 1500 by Haley Perez RN VTE Prevention/Management: patient refused intervention Taken 12/31/2024 0800 by Haley Perez RN VTE Prevention/Management: patient refused intervention Intervention: Prevent Infection Recent Flowsheet Documentation Taken 12/31/2024 1500 by Haley Perez RN Infection Prevention: hand hygiene promoted Taken 12/31/2024 0800 by Haley Perez RN Infection Prevention: hand hygiene promoted Goal: Optimal Comfort and Wellbeing Outcome: Progressing Goal: Readiness for Transition of Care Outcome: Progressing Goal Outcome Evaluation: * Plan of Care - Antolin Garcia RN - 12/31/2024 6:09 AM CDT Problem: Adult Inpatient Plan of Care Goal: Optimal Comfort and Wellbeing Outcome: Progressing Problem: Pain Acute Goal: Optimal Pain Control and Function Outcome: Progressing Intervention: Prevent or Manage Pain Recent Flowsheet Documentation Taken 12/31/2024219 by Antolin Garcia RN Medication Review/Management: medications reviewed Taken 12/30/20242039 by Antolin Garcia RN Medication Review/Management: medications reviewed Problem: Gas Exchange Impaired Goal: Optimal Gas Exchange Outcome: Progressing Intervention: Optimize Oxygenation and Ventilation Recent Flowsheet Documentation Taken 12/31/2024219 by Antolin Garcia RN Head of Bed (HOB) Positioning: HOB at 20-30 degrees Taken 12/30/20242039 by Antolin Garcia RN Head of Bed (HOB) Positioning: HOB at 20-30 degrees Goal Outcome Evaluation: A/Ox4. Sometimes desatting while sleeping on 3L O2, stable on 4L O2. Hypertensive at 207/116, given PRN labetalol x1 with improvement. Other vitals stable. Tolerating clear liquids, taking small sips and goal of <8oz per shift. Pain controlled with PCAmorphine. Independent in room. Slept between cares. Antolin Garcia RN * Plan of Care - Naomi Grimes RN - 12/30/2024 7:46 PM CDT Problem: Adult Inpatient Plan of Care Goal: Plan of Care Review Description: The Plan of Care Review/Shift note should be completed every shift. The Outcome Evaluation is a brief statement about your assessment that the patient is improving, declining, or no change. This information will be displayed automatically on your shift note. Outcome: Progressing Goal Outcome Evaluation: [id number]... Pt is a/o x4, independent., pain is being managed with Morphine ASSISTANT HALL DIRECTOR pump, current rateis at 3 mg with lockout time at 60 minutes, initial rate was 4 mg. Pt also had gastrografin this afternoon, result looks okay per surgery. He was started on clear liquid abut advised to take sips at a time and not more than 8 ounces per shift. BG= 132, 130 and 172 mg/dL. Will continue to monitor. * Plan of Care - Tawana Garcia RN - 12/30/2024 6:39 AM CDT Assumed care 1900 to 07. A&O x 4. Independent. Tele is NSR. C/O abdominal pain, ASSISTANT HALL DIRECTOR pump in place. Room air. Up to toilet. Patient slept for the majority of the shift. NPO. PRN Labetalol given (see MAR). Call light within reach, able to make needs known. Bed alarm on for safety. Problem: Gas Exchange Impaired Goal: Optimal Gas Exchange Intervention: Optimize Oxygenation and Ventilation Recent Flowsheet Documentation Taken 12/29/20242137 by Tawana Garcia RN Head of Bed (HOB) Positioning: HOB at 20-30 degrees Problem: Comorbidity Management Goal: Blood Pressure in Desired Range Intervention: Maintain Blood Pressure Management Recent Flowsheet Documentation Taken 12/29/20242137 by Tawana Garcia RN Medication Review/Management: medications reviewed * Plan of Care - Chely Quinn RN - 12/29/2024 6:52 PM CDT Problem: Comorbidity Management Goal: Blood Pressure in Desired Range Intervention: Maintain Blood Pressure Management Recent Flowsheet Documentation Taken 12/29/2024 1539 by Chely Quinn RN Medication Review/Management: medications reviewed Taken 12/29/2024 0856 by Chely Quinn RN Medication Review/Management: medications reviewed Problem: Gas Exchange Impaired Goal: Optimal Gas Exchange Outcome: Progressing Problem: Adult Inpatient Plan of Care Goal: Plan of Care Review Description: The Plan of Care Review/Shift note should be completed every shift. The Outcome Evaluation is a brief statement about your assessment that the patient is improving, declining, or no change. This information will be displayed automatically on your shift note. Outcome: Progressing Flowsheets (Taken 12/29/2024 1852) Plan of Care Reviewed With: patient Overall Patient Progress: improving Goal Outcome Evaluation: Plan of Care Reviewed With: patient Overall Patient Progress: improvingOverall Patient Progress: improving Pain 5-7 throughout shift. ASSISTANT HALL DIRECTOR started this afternoon. Up walking in halls. Pulse ox on. 3L when sleeping due to MEI. Tele-NSR. BP elevated throughout shift despite IV Labetalol. Recheck again at 1900 and notify MD if still elevated. * Provider Notification - Chely Quinn RN - 12/29/2024 3:[address] Christi shelton-BP 192/115 HR 77 * Provider Notification - Chely Quinn RN - 12/29/2024 2:[address] Christi shelton-BP 203/100 HR 75. Order to recheck in 30 min. * Provider Notification - Chely Quinn RN - 12/29/2024 8:[address] Fiorella rainey paged BP 170/109. No new orders at this time. Notify day rounder if BP >190/110. * Plan of Care - Marv Fleming RN - 12/29/2024 6:50 AM CDT Goal Outcome Evaluation: Problem: Adult Inpatient Plan of Care Goal: Optimal Comfort and Wellbeing Outcome: Progressing Intervention: Monitor Pain and Promote Comfort Problem: Pain Acute Goal: Optimal Pain Control and Function Outcome: Progressing Intervention: Develop Pain Management Plan NURSING PROGRESS NOTE Shift Summary Date: December 29, 2024 Neuro/Musculoskeletal: A&Ox4. Cardiac: NSR on tele. VSS. Respiratory: Sating in the 90s on 3L NC. GI/: Adequate urine output. LBM: 12/26 Diet/Appetite: NPO Activity: Indp. Pain: Moderate to severe. Controlled with Q2 IV pain medication. Skin: No new deficits noted. LDAs + Drips/IVF: LR @150ml/hr. Protocols/Labs: BMP and CBC. Pertinent Shift Updates: no acute events overnight. Plan: UGI study 12/30. Marv Fleming RN .................................................... * Plan of Care - Khari Alicia RN - 12/28/2024 6:59 PM CDT Assumed cares [id number] Problem: Comorbidity Management Goal: Blood Glucose Levels Within Targeted Range Outcome: Progressing Intervention: Monitor and Manage Glycemia Recent Flowsheet Documentation Taken 12/28/20241816 by Khari Alicia RN Medication Review/Management: medications reviewed Goal: Blood Pressure in Desired Range Outcome: Progressing Intervention: Maintain Blood Pressure Management Recent Flowsheet Documentation Taken 12/28/20241816 by Khari Alicia, tiler Review/Management: medications reviewed Problem: Pain Acute Goal: Optimal Pain Control and Function Outcome: Progressing Intervention: Prevent or Manage Pain Recent Flowsheet Documentation Taken 12/28/20241816 by Khari Alicia, tiler Review/Management: medications reviewed Problem: Gas Exchange Impaired Goal: Optimal Gas Exchange Outcome: Progressing Goal Outcome Evaluation: Plan of Care Reviewed With: patient A/ox4. 3L NC. Gen surg/urology following. On tele - SR. C/o abd & R flank pain. 1x prn IV morphine given. BG 152. L PIV running LR 150. NPO for UGI on 12/30. Up indep. Refuses hospital CPAP - s/o bringing home cpap machine. S/o & dgtr at bedside. Continue poc. * Plan of Care - Shauna Thorne OTR - 12/28/2024 11:51 AM CDT Occupational Therapy: Orders received. Chart reviewed and discussed with care team.? Occupational Therapy not indicated due to pt being IND with mobility and ADLs, spoke with RN who reports no OT related concerns.? Defer discharge recommendations to medical care team.? Will complete orders. * Plan of Care - Yon Mazariegos RN - 12/28/2024 5:52 AM CDT Problem: Adult Inpatient Plan of Care Goal: Absence of Hospital-Acquired Illness or Injury Outcome: Progressing Intervention: Identify and Manage Fall Risk Recent Flowsheet Documentation Taken 12/27/20242346 by Yon Mazariegos RN Safety Promotion/Fall Prevention: activity supervised Intervention: Prevent Skin Injury Recent Flowsheet Documentation Taken 12/27/20242346 by Yon Mazariegos RN Body Position: position changed independently Problem: Pain Acute Goal: Optimal Pain Control and Function Outcome: Progressing Intervention: Develop Pain Management Plan Recent Flowsheet Documentation Taken 12/27/20242346 by 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 Interventions: medication (see MAR) Intervention: Prevent or Manage Pain Recent Flowsheet Documentation Taken 12/27/20242346 by Yon Mazariegos RN Medication Review/Management: medications reviewed Problem: Gas Exchange Impaired Goal: Optimal Gas Exchange Outcome: Progressing Intervention: Optimize Oxygenation and Ventilation Recent Flowsheet Documentation Taken 12/27/2024 2347 by Yon Mazariegos RN Head of Bed (HOB) Positioning: HOB at 20-30 degrees Goal Outcome Evaluation: BP (!) 195/103 (BP Location: Right arm) Pulse 80 Temp 98.4 ??F (36.9 ??C) (Oral) Resp 18 Ht1.803 m (5' 11) Wt 134 kg (295 lb 7 oz) SpO2 94% BMI 41.21 kg/m?? A&Ox4, pain to abdomen as high as 8/10 given IV morphine (see MAR), BP elevated given IV labetalol, pt remains asymptomatic. Tele NSR. 3L oxymask NOC, refused hospital CPAP. LR infusing @ 150/hr.BG 174 and 189. Mag and K protocol, AM rechecks. Remains NPO, Ind to bathroom. Will continue with plan of care. * Plan of Care - Vira Daniels RN - 12/27/2024 10:47 PM CDT Goal Outcome Evaluation: Prn labetalol 10 mg iv prn given at 2245 for BP 191/146. Md. Han notified of elevated BP. Continueto monitor. * Plan of Care - Vira Daniels RN - 12/27/2024 10:14 PM CDT Problem: Adult Inpatient Plan of Care Goal: Absence of Hospital-Acquired Illness or Injury Intervention: Identify and Manage Fall Risk Recent Flowsheet Documentation Taken 12/27/2024 1600 by Vira Daniels RN Safety Promotion/Fall Prevention: activity supervised Intervention: Prevent Skin Injury Recent Flowsheet Documentation Taken 12/27/2024 1600 by Vira Daniels RN Body Position: position changed independently Goal Outcome Evaluation: Pt is progressing with these goals. Pt's pain is controlled with iv morphine every 2-3 hrs. Pt denies nausea, Pt continues to be hypertensive, continue to monitor, received hydralazine iv earlier in day. Pt continues to be npo per order, tolerating IVF. * Pharmacy-Admission Medication History - Marco Vargas RPH - 12/27/2024 10:13 AM CDT Pharmacist Admission Medication History Admission medication history is complete. The information provided in this note is only as accurateas the sources available at the time of the update. 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 Taking As Needed documented in this encounter Plan of Treatment Upcoming Encounters Date Type Department Care Team (Late st Contact Info) Description 02/13/2025 2:00 PM CDT Ancillary Procedure [facility] [address] [place] [address] [phone] Tabitha Garcia PA-C [facility] [address] Scheduled Orders Name Type Priority Associated Diagnoses Orde r Schedule CT Abdomen Pelvis w/o Contrast Imaging Routine Ureteral stone Expected: 01/26/2025 (Approximate), Expires: 12/27/2025 Scheduled Referrals Name Type Priority Associated Diagnoses Orde r Schedule Adult GI Solid Waste Manager Referral - Consult Only Referral Routine: Next available opening Acute gastric ulcer with perforation (H) Expected: 01/02/2025 (Approximate), Expires: 01/02/2026 documented as of this encounter Procedures Procedure Name Priority Date/Time Associated Diagnosis Comments GLUCOSE BY METER Routine 01/02/2025 9:30 AM CDT GLUCOSE BY METER Routine 01/02/2025 7:39 AM CDT EXTRA GREEN TOP TUBE (LAB USE ONLY) Routine 01/02/2025 6:19 AM CDT CBC WITH PLATELETS Routine 01/02/2025 6: 19 AM CDT GLUCOSE BY METER Routine 01/02/2025 6:01 AM CDT GLUCOSE BY METER Routine 01/02/2025 2:00 AM CDT GLUCOSE BY METER Routine 01/01/2025 9:44 PM CDT GLUCOSE BY METER Routine 01/01/2025 6:01 PM CDT GLUCOSE BY METER Routine 01/01/2025 2:37 PM CDT GLUCOSE BY METER Routine 01/01/2025 10:2 6 AM CDT BASIC METABOLIC PANEL Routine 01/01/2025 7:00 AM CDT CBC WITH PLATELETS Routine 01/01/2025 7: 00 AM CDT GLUCOSE BY METER Routine 01/01/2025 6:42 AM CDT GLUCOSE BY METER Routine 01/01/2025 1:57 AM CDT GLUCOSE BY METER Routine 12/31/2024 9:24 PM CDT GLUCOSE BY METER Routine 12/31/2024 6:03 PM CDT GLUCOSE BY METER Routine 12/31/2024 2:24 PM CDT GLUCOSE BY METER Routine 12/31/2024 10:0 0 AM CDT BASIC METABOLIC PANEL Routine 12/31/2024 7:23 AM CDT CBC WITH PLATELETS Routine 12/31/2024 7: 23 AM CDT GLUCOSE BY METER Routine 12/31/2024 5:11 AM CDT GLUCOSE BY METER Routine 12/31/2024 2:19 AM CDT GLUCOSE BY METER Routine 12/30/2024 10:1 4 PM CDT GLUCOSE BY METER Routine 12/30/2024 5:45 PM CDT XR GASTROGRAFIN UPPER GI W KUB Routine 12/30/2024 2:56 PM CDT GLUCOSE BY METER Routine 12/30/2024 2:02 PM CDT GLUCOSE BY METER Routine 12/30/2024 10:0 1 AM CDT GLUCOSE BY METER Routine 12/30/2024 7:40 AM CDT BASIC METABOLIC PANEL Routine 12/30/2024 6:34 AM CDT CBC WITH PLATELETS Routine 12/30/2024 6: 34 AM CDT GLUCOSE BY METER Routine 12/30/2024 6:10 AM CDT GLUCOSE BY METER Routine 12/30/2024 1:55 AM CDT GLUCOSE BY METER Routine 12/29/2024 9:35 PM CDT GLUCOSE BY METER Routine 12/29/2024 6:07 PM CDT GLUCOSE BY METER Routine 12/29/2024 3:03 PM CDT GLUCOSE BY METER Routine 12/29/2024 10:1 6 AM CDT BASIC METABOLIC PANEL Routine 12/29/2024 6:53 AM CDT CBC WITH PLATELETS Routine 12/29/2024 6: 53 AM CDT GLUCOSE BY METER Routine 12/29/2024 5:14 AM CDT GLUCOSE BY METER Routine 12/29/2024 2:37 AM CDT GLUCOSE BY METER Routine 12/28/2024 9:2 0 PM CDT GLUCOSE BY METER Routine 12/28/2024 6:43 PM CDT ECG 12-LEAD WITH MUSE SJN,SJO,WWH STAT 12/28/2024 6:27 PM CDT GLUCOSE BY METER STAT 12/28/2024 2:18 PM CDT GLUCOSE BY METER STAT 12/28/2024 10:1 6 AM CDT GLUCOSE BY METER STAT 12/28/2024 8:00 AM CDT HEMOGLOBIN A1C STAT 12/28/2024 7:05 AM CDT BASIC METABOLIC PANEL STAT 12/28/2024 7:05 AM CDT CBC WITH PLATELETS STAT 12/28/2024 7: 05 AM CDT GLUCOSE BY METER STAT 12/28/2024 5:50 AM CDT GLUCOSE BY METER STAT 12/28/2024 2:04 AM CDT GLUCOSE BY METER STAT 12/27/2024 9:08 PM CDT GLUCOSE BY METER STAT 12/27/2024 4:33 PM CDT ROUTINE UA WITH MICROSCOPIC REFLEX TO CULTURE STAT 12/27/2024 11:46 AM CDT BLOOD CULTURE STAT 12/27/2024 10:16 AM CDT BLOOD CULTURE STAT 12/27/2024 10:10 AM CDT LACTIC ACID WHOLE BLOOD WITH 1X REPEAT IN 2 HR WHEN >2 STAT 12/27/2024 9:43 AM CDT TROPONIN T, HIGH SENSITIVITY STAT 12/27/2024 9:43 AM CDT INR STAT 12/27/2024 9:43 AM CDT PARTIAL THROMBOPLASTIN TIME STAT 12/27/2024 9:43 AM CDT CTA CHEST ABDOMEN PELVIS W CONTRAST STAT 12/27/2024 8:58 AM CDT CBC WITH PLATELETS AND DIFFERENTIAL STAT 12/27/2024 7:46 AM CDT TYPE AND SCREEN, ADULT STAT 7:46 AM CDT TROPONIN T, HIGH SENSITIVITY STAT 12/27/2024 7:46 AM CDT CBC WITH PLATELETS & DIFFERENTIAL STAT 12/27/2024 7:46 AM CDT LIPASE STAT 12/27/2024 7:46 AM CDT HEPATIC FUNCTION PANEL STAT 7:46 AM CDT ABO/RH TYPE AND SCREEN STAT 7:46 AM CDT BASIC METABOLIC PANEL STAT 12/27/2024 7:46 AM CDT ECG 12-LEAD WITH MUSE SJN,SJO,WWH STAT 12/27/2024 7:42 AM CDT documented in this encounter Results * (ABNORMAL) Glucose by meter (01/02/2025 9:30 AM CDT) GLUCOSE BY METER POCT 136(H) 70 - 99 mg/dL 01/02/2025 9:36 AM CDT [facility] POCT RESULTS Blood, Capillary BLOOD SPECIMEN / Unknown 01/02/2025 9:30 AM CDT 01/02/2025 9:36 AM CDT us Viet Gonzalez MD LAB - BEAKER POCT Final Result Performing Organization Address City/[facility]/ZIP Co de Phone Number [facility] POCT RESULTS [address] [place] [address] * (ABNORMAL) Glucose by meter (01/02/2025 7:39 AM CDT) GLUCOSE BY METER POCT 159(H) 70 - 99 mg/dL 01/02/2025 7:47 AM CDT [facility] POCT RESULTS Blood, Capillary BLOOD SPECIMEN / Unknown 01/02/2025 7:39 AM CDT 01/02/2025 7:47 AM CDT us Viet Gonzalez MD LAB - BEAKER POCT Final Result [facility] POCT RESULTS [address] [place] [address] * Extra Green Top Tube (LAB USE ONLY) (01/02/2025 6:19 AM CDT) Hold Specimen JIC 01/02/2025 8:06 AM CDT [facility] Blood BLOOD SPECIMEN / Unknown Venipuncture / Unknown 01/02/2025 6:19 AM CDT 01/02/2025 6:49 AM CDT us Viet Gonzalez MD LAB - BLOOD ORDERABLES Final R esult [facility] [address] * (ABNORMAL) CBC with platelets (01/02/2025 6:19 AM CDT) WBC Count 13.3(H) 4.0 - 11.0 10e3/uL 01/02/2025 7:08 AM CDT N LABORATORY RBC Count 4.28(L) 4.40 - 5.90 10e6/uL 01/02/2025 7:08 AM CDT [facility] Hemoglobin 13.0(L) 13.3 - 17.7 g/dL 01/02/2025 7:08 AM CDT [facility] Hematocrit 39.9(L) 40.0 - 53.0 % 01/02/2025 7:08 AM CDT [facility] MCV 93 78 - 100 fL 01/02/2025 7:08 AM CDT [facility] MCH 30.4 26.5 - 33.0 pg 01/02/2025 7:08 AM CDT [facility] MCHC 32.6 31.5 - 36.5 g/dL 01/02/2025 7:08 AM CDT [facility] RDW 13.4 10.0 - 15.0 % 01/02/2025 7:08 AM CDT [facility] Platelet Count 255 150 - 450 10e3/uL 01/02/2025 7:08 AM T [facility] Blood BLOOD SPECIMEN / Unknown Venipuncture / Unknown 01/02/2025 6:19 AM CDT 01/02/2025 6:49 AM CDT us Tayla Lynch DO LAB - BLOOD ORDERABLES Final Result [facility] [address] [place] [address], [facility] * (ABNORMAL) Glucose by meter (01/02/2025 6:01 AM CDT) GLUCOSE BY METER POCT 150(H) 70 - 99 mg/dL 01/02/2025 6:09 AM CDT [facility] POCT RESULTS Blood, Capillary BLOOD SPECIMEN / Unknown 01/02/2025 6:01 AM CDT 01/02/2025 6:09 AM CDT us Viet Gonzalez MD LAB - [place] POCT Final Result Performing Organization Address City/[facility]/ZIP Co de Phone Number [facility] POCT RESULTS [address] [place] [address] * (ABNORMAL) Glucose by meter (01/02/2025 2:00 AM CDT) GLUCOSE BY METER POCT 162(H) 70 - 99 mg/dL 01/02/2025 2:06 AM CDT [facility] POCT RESULTS Blood, Capillary BLOOD SPECIMEN / Unknown 01/02/2025 2:00 AM CDT 01/02/2025 2:06 AM CDT us Viet Gonzalez MD LAB - [place] POCT Final Result Performing Organization Address [facility]/ZIP Co de Phone Number [facility] POCT RESULTS [address] [place] [address] * (ABNORMAL) Glucose by meter (01/01/2025 9:44 PM CDT) GLUCOSE BY METER POCT 143(H) 70 - 99 mg/dL 01/01/2025 9:51 PM CDT [facility] POCT RESULTS Blood, Capillary BLOOD SPECIMEN / Unknown 01/01/2025 9:44 PM CDT 01/01/2025 9:51 PM CDT us Viet Gonzalez MD LAB - BEAKER POCT Final Result Performing Organization Address [facility] Co de Phone Number [facility] POCT RESULTS [address] [place] [address] * (ABNORMAL) Glucose by meter (01/01/2025 6:01 PM CDT) GLUCOSE BY METER POCT 144(H) 70 - 99 mg/dL 01/01/2025 6:08 PM CDT [facility] POCT RESULTS Blood, Capillary BLOOD SPECIMEN / Unknown 01/01/2025 6:01 PM CDT 01/01/2025 6:08 PM CDT us Viet MOFFETT - [place] POCT Final Result Performing Organization Address [facility]/ZIP Co de Phone Number [facility] POCT RESULTS [address] [place] [address] * (ABNORMAL) Glucose by meter (01/01/2025 2:37 PM CDT) GLUCOSE BY METER POCT 148(H) 70 - 99 mg/dL 01/01/2025 2:43 PM CDT [facility] POCT RESULTS Blood, Capillary BLOOD SPECIMEN / Unknown 01/01/2025 2:37 PM CDT 01/01/2025 2:43 PM CDT us Viet [facility] - [place] POCT Final Result Performing Organization Address [facility] Co de Phone Number [facility] POCT RESULTS [address] [place] [address] * (ABNORMAL) Glucose by meter (01/01/2025 10:26 AM CDT) GLUCOSE BY METER POCT 145(H) 70 - 99 mg/dL 01/01/2025 10:33 AM CDT [facility] POCT RESULTS Comment:Dr/RN Notified Blood, Capillary BLOOD SPECIMEN / Unknown 01/01/2025 10:26 AM CDT 01/01/2025 10:33 AM CDT us Viet Gonzalez MD LAB - BEAKER POCT Final Result Performing Organization Address [facility] Co de Phone Number [facility] POCT RESULTS [address] [place] [address] * (ABNORMAL) CBC with platelets (01/01/2025 7:00 AM CDT) WBC Count 14.1(H) 4.0 - 11.0 10e3/uL 01/01/2025 7:34 AM CDT N LABORATORY RBC Count 4.00(L) 4.40 - 5.90 10e6/uL 01/01/2025 7:34 AM CDT N LAB[facility]ORY Hemoglobin 12.2(L) 13.3 - 17.7 g/dL 01/01/2025 7:34 AM CDT [facility] LAB[facility]ORY Hematocrit 37.4(L) 40.0 - 53.0 % 01/01/2025 7:34 AM CDT [facility] MCV 94 78 - 100 fL 01/01/2025 7:34 AM CDT [facility] MCH 30.5 26.5 - 33.0 pg 01/01/2025 7:34 AM CDT [facility] MCHC 32.6 31.5 - 36.5 g/dL 01/01/2025 7:34 AM CDT [facility] RDW 13.5 10.0 - 15.0 % 01/01/2025 7:34 AM CDT [facility] Platelet Count 230 150 - 450 10e3/uL 01/01/2025 7:34 AM CDT [facility] Blood BLOOD SPECIMEN / Unknown Venipuncture / Unknown 01/01/2025 7:00 AM CDT 01/01/2025 7:26 AM CDT us Tayla Lynch DO LAB - BLOOD ORDERABLES Final Result [facility] [address] * (ABNORMAL) Basic metabolic panel (01/01/2025 7:00 AM CDT) Pathologist [facility] Sodium 135 135 - 145 mmol/L 01/01/2025 8:07 AM CDT N LABORATORY Potassium 3.4 3.4 - 5.3 mmol/L 01/01/2025 8:07 AM CDT N LABORATORY Chloride 96(L) 98 - 107 mmol/L 01/01/2025 8:07 AM CDT [facility] Carbon Dioxide (CO2) 28 22 - 29 mmol/L 01/01/2025 8:07 AM CDT [facility] Anion Gap 11 7 - 15 mmol/L 01/01/2025 8:07 AM CDT N LABORATORY Urea Nitrogen 4.2(L) 6.0 - 20.0 mg/dL 01/01/2025 8:07 AM CDT [facility] Creatinine 0.83 0.67 - 1.17 mg/dL 01/01/2025 8:07 AM CDT [facility] GFR Estimate >90 >60 mL/min/1.7 3m2 01/01/2025 8:07 AM T N LABORATORY Comment:eGFR calculated usin 2020 CKD-EPI equation. Calcium 8.7(L) 8.8 - 10.4 mg/dL 01/01/2025 8:07 AM CDT N LABORATORY Glucose 133(H) 70 - 99 mg/dL 01/01/2025 8:07 AM CDT [facility] Blood BLOOD SPECIMEN / Unknown Venipuncture / Unknown 01/01/2025 7:00 AM CDT 01/01/2025 7:26 AM CDT us Pam Barraza MD LAB - BLOOD ORDERABLES Final Re sult Performing Organization Address City/[facility]/ZIP Co de Phone Number [facility] [address] [place] [address], [facility] * (ABNORMAL) Glucose by meter (01/01/2025 6:42 AM CDT) GLUCOSE BY METER POCT 133(H) 70 - 99 mg/dL 01/01/2025 6:48 AM CDT [facility] POCT RESULTS Blood, Capillary BLOOD SPECIMEN / Unknown 01/01/2025 6:42 AM CDT 01/01/2025 6:48 AM CDT us Viet Gonzalez MD LAB - BEAKER POCT Final Result [facility] POCT RESULTS [address] [place] [address] * (ABNORMAL) Glucose by meter (01/01/2025 1:57 AM CDT) GLUCOSE BY METER POCT 133(H) 70 - 99 mg/dL 01/01/2025 2:04 AM CDT [facility] POCT RESULTS Blood, Capillary BLOOD SPECIMEN / Unknown 01/01/2025 1:57 AM CDT 01/01/2025 2:04 AM CDT us Viet Gonzalez MD LAB - BEAKER POCT Final Result Performing Organization Address City/[facility]/ZIP Co de Phone Number [facility] POCT RESULTS [address] [place] [address] * (ABNORMAL) Glucose by meter (12/31/2024 9:24 PM CDT) GLUCOSE BY METER POCT 121(H) 70 - 99 mg/dL 12/31/2024 9:30 PM CDT [facility] POCT RESULTS Blood, Capillary BLOOD SPECIMEN / Unknown 12/31/2024 9:24 PM CDT 12/31/2024 9:30 PM CDT us Viet Gonzalez MD LAB - [place] POCT Final Result Performing Organization Address [facility]/ZIP Co de Phone Number [facility] POCT RESULTS [address] [place] [address] * (ABNORMAL) Glucose by meter (12/31/2024 6:03 PM CDT) GLUCOSE BY METER POCT 153(H) 70 - 99 mg/dL 12/31/2024 6:10 PM CDT [facility] POCT RESULTS Blood, Capillary BLOOD SPECIMEN / Unknown 12/31/2024 6:03 PM CDT 12/31/2024 6:10 PM CDT us Viet Gonzalez MD LAB - [place] POCT Final Result Performing Organization Address [facility]/ZIP Co de Phone Number [facility] POCT RESULTS [address] [place] [address] * (ABNORMAL) Glucose by meter (12/31/2024 2:24 PM CDT) GLUCOSE BY METER POCT 129(H) 70 - 99 mg/dL 12/31/2024 2:31 PM CDT [facility] POCT RESULTS Blood, Capillary BLOOD SPECIMEN / Unknown 12/31/2024 2:24 PM CDT 12/31/2024 2:31 PM CDT Viet Gonzalez MD LAB - BEAKER POCT Final Result Performing Organization Address [facility]/ZIP Co de Phone Number [facility] POCT RESULTS [address] [place] [address] * (ABNORMAL) Glucose by meter (12/31/2024 10:00 AM CDT) GLUCOSE BY METER POCT 155(H) 70 - 99 mg/dL 12/31/2024 10:07 AM CDT [facility] POCT RESULTS Blood, Capillary BLOOD SPECIMEN / Unknown 12/31/2024 10:00 AM CDT 12/31/2024 10:07 AM CDT us Viet Gonzalez MD LAB - BEAKER POCT Final Result Performing Organization Address [facility] de Phone Number [facility] POCT RESULTS [address] [place] [address] * (ABNORMAL) CBC with platelets (12/31/2024 7:23 AM CDT) WBC Count 17.5(H) 4.0 - 11.0 10e3/uL 12/31/2024 8:03 AM CDT [facility] RBC Count 4.21(L) 4.40 - 5.90 10e6/uL 12/31/2024 8:03 AM CDT [facility] Hemoglobin 13.1(L) 13.3 - 17.7 g/dL 12/31/2024 8:03 AM CDT [facility] Hematocrit 39.6(L) 40.0 - 53.0 % 12/31/2024 8:03 AM CDT [facility] MCV 94 78 - 100 fL 12/31/2024 8:03 AM CDT [facility] MCH 31.1 26.5 - 33.0 pg 12/31/2024 8:03 AM CDT [facility] MCHC 33.1 31.5 - 36.5 g/dL 12/31/2024 8:03 AM [facility] RDW 13.7 10.0 - 15.0 % 12/31/2024 8:03 AM CDT [facility] Platelet Count 210 150 - 450 10e3/uL 12/31/2024 8:03 AM T [facility] Blood STRUCTURE OF RIGHT HAND / Unknown Venipuncture / Unknown 12/31/2024 7:23 AM CDT 12/31/2024 7:57 AM CDT us Tayla Lynch DO LAB - BLOOD ORDERABLES Final Result [facility] [address] [place] [address], [facility] * (ABNORMAL) Basic metabolic panel (12/31/2024 7:23 AM CDT) Sodium 132(L) 135 - 145 mmol/L 12/31/2024 8:[address] [facility] Potassium 3.7 3.4 - 5.3 mmol/L 12/31/2024 8:22 AM [facility] Chloride 92(L) 98 - 107 mmol/L 12/31/2024 8:22 AM [facility] Carbon Dioxide (CO2) 27 22 - 29 mmol/L 12/31/2024 8:22 AM [facility] Anion Gap 13 7 - 15 mmol/L 12/31/2024 8:22 AM [facility] Urea Nitrogen 5.8(L) 6.0 - 20.0 mg/dL 12/31/2024 8:22 AM T [facility] Creatinine 0.84 0.67 - 1.17 mg/dL 12/31/2024 8:22 AM [facility] GFR Estimate >90 >60 mL/min/1.7 3m2 12/31/2024 8:22 AM [facility] Comment:eGFR calculated us2020 CKD-EPI equation. Calcium 8.9 8.8 - 10.4 mg/dL 12/31/2024 8:22 AM [facility] Glucose 131(H) 70 - 99 mg/dL 12/31/2024 8:22 AM CDT [facility] Blood STRUCTURE OF RIGHT HAND / Unknown Venipuncture / Unknown 12/31/2024 7:23 AM CDT 12/31/2024 7:57 AM CDT us Pam Barraza MD LAB - BLOOD ORDERABLES Final Re sult [facility] [address] [place] [address], [facility] * (ABNORMAL) Glucose by meter (12/31/2024 5:11 AM CDT) GLUCOSE BY METER POCT 131(H) 70 - 99 mg/dL 12/31/2024 5:18 AM CDT [facility] POCT RESULTS Blood, Capillary BLOOD SPECIMEN / Unknown 12/31/2024 5:11 AM CDT 12/31/2024 5:18 AM CDT us Viet Gonzalez MD LAB - BEAKER POCT Final Result Performing Organization Address [facility]/ZIP Co de Phone Number [facility] POCT RESULTS [address] [place] [address] * (ABNORMAL) Glucose by meter (12/31/2024 2:19 AM CDT) GLUCOSE BY METER POCT 122(H) 70 - 99 mg/dL 12/31/2024 2:25 AM CDT [facility] POCT RESULTS Blood, Capillary BLOOD SPECIMEN / Unknown 12/31/2024 2:19 AM CDT 12/31/2024 2:25 AM CDT us Viet Gonzalez MD LAB - BEAKER POCT Final Result Performing Organization Address City/[facility]/ZIP Co de Phone Number [facility] POCT RESULTS [address] [place] [address] * (ABNORMAL) Glucose by meter (12/30/2024 10:14 PM CDT) GLUCOSE BY METER POCT 120(H) 70 - 99 mg/dL 12/30/2024 10:21 PM CDT [facility] POCT RESULTS Blood, Capillary BLOOD SPECIMEN / Unknown 12/30/2024 10:14 PM CDT 12/30/2024 10:21 PM CDT Viet Gonzalez MD LAB - BEAKER POCT Final Result Performing Organization Address [facility] Co de Phone Number [facility] POCT RESULTS [address] [place] [address] * (ABNORMAL) Glucose by meter (12/30/2024 5:45 PM CDT) GLUCOSE BY METER POCT 172(H) 70 - 99 mg/dL 12/30/2024 5:52 PM CDT [facility] POCT RESULTS Blood, Capillary BLOOD SPECIMEN / Unknown 12/30/2024 5:45 PM CDT 12/30/2024 5:52 PM CDT us Viet Gonzalez MD LAB - BEAKER POCT Final Result Performing Organization Address [facility] de Phone Number [facility] POCT RESULTS [address] [place] [address] * XR Gastrografin Upper GI w KUB (12/30/2024 2:56 PM CDT) Anatomical Region Laterality Modality Abdomen/Pelvis Radio Fluoroscop y 12/30/2024 2:56 PM CDT Impressions 12/30/2024 3:15 PM CDT IMPRESSION: 1. No fluoroscopic evidence for gastroduodenal leakage. Narrative 12/30/2024 3:15 PM CDT EXAM: XR GASTROGRAFIN UPPER GI W KUB LOCATION: [facility] DATE: 12/30/2024 INDICATION: Patient with gastric perforation, evaluation for contrast extrav COMPARISON: None. TECHNIQUE: Water-soluble contrast examination. RADIATION DOSE: Total Air Kerma 219.2 mGy FINDINGS: ESOPHAGUS: Normal caliber esophagus without evidence of a stricture or suspicious filling defect. Normal peristalsis. No hiatal hernia. No spontaneous gastroesophageal reflux was observed. STOMACH: Normal size, contour and rugal fold pattern. No extraluminal contrast leakage was observed. In particular, there was no contrast leakage along the posterior margin of the gastric antrum/pylorus. The DUODENUM: Normal. Free flow of contrast through proximal small bowel. No intraluminal contrast leakage. Procedure Note Josafat Angeles MD - 12/30/2024 EXAM: XR GASTROGRAFIN UPPER GI W KUB LOCATION: [facility] DATE: 12/30/2024 INDICATION: Patient with gastric perforation, evaluation for contrastextrav COMPARISON: None. TECHNIQUE: Water-soluble contrast examination. RADIATION DOSE: Total Air Kerma 219.2 mGy FINDINGS: ESOPHAGUS: Normal caliber esophagus without evidence of a stricture orsuspicious filling defect. Normal peristalsis. No hiatal hernia. Nospontaneous gastroesophageal reflux was observed. STOMACH: Normal size, contour and rugal fold pattern. No extraluminalcontrast leakage was observed. In particular, there was no contrastleakage along the posterior margin of the gastric antrum/pylorus. The DUODENUM: Normal. Free flow of contrast through proximal small bowel. Nointraluminal contrast leakage. IMPRESSION: 1. No fluoroscopic evidence for gastroduodenal leakage. us Portia SALINAS IMG DIAGNOSTIC IMAGING ORD ERABLES Final Result * (ABNORMAL) Glucose by meter (12/30/2024 2:02 PM CDT) GLUCOSE BY METER POCT 127(H) 70 - 99 mg/dL 12/30/2024 2:08 PM CDT [facility] POCT RESULTS Blood, Capillary BLOOD SPECIMEN / Unknown 12/30/2024 2:02 PM CDT 12/30/2024 2:08 PM CDT us Viet Gonzalez MD LAB - BEAKER POCT Final Result [facility] POCT RESULTS [address] [place] [address] * (ABNORMAL) Glucose by meter (12/30/2024 10:01 AM CDT) GLUCOSE BY METER POCT 132(H) 70 - 99 mg/dL 12/30/2024 10:07 AM CDT [facility] POCT RESULTS Blood, Capillary BLOOD SPECIMEN / Unknown 12/30/2024 10:01 AM CDT 12/30/2024 10:07 AM CDT Viet Gonzalez MD LAB - BEAKER POCT Final Result Performing Organization Address [facility] Co de Phone Number [facility] POCT RESULTS [address] [place] [address] * (ABNORMAL) Glucose by meter (12/30/2024 7:40 AM CDT) GLUCOSE BY METER POCT 130(H) 70 - 99 mg/dL 12/30/2024 7:47 AM CDT [facility] POCT RESULTS Blood, Capillary BLOOD SPECIMEN / Unknown 12/30/2024 7:40 AM CDT 12/30/2024 7:47 AM CDT us Viet Gonzalez MD LAB - [place] POCT Final Result Performing Organization Address [facility] de Phone Number [facility] POCT RESULTS [address] [place] [address] * (ABNORMAL) CBC with platelets (12/30/2024 6:34 AM CDT) WBC Count 16.8(H) 4.0 - 11.0 10e3/uL 12/30/2024 7:18 AM CDT [facility] RBC Count 4.33(L) 4.40 - 5.90 10e6/uL 12/30/2024 7:18 AM CDT [facility] Hemoglobin 13.4 13.3 - 17.7 g/dL 12/30/2024 7:18 AM CDT [facility] Hematocrit 41.1 40.0 - 53.0 % 12/30/2024 7:18 AM CDT [facility] MCV 95 78 - 100 fL 12/30/2024 7:18 AM CDT [facility] MCH 30.9 26.5 - 33.0 pg 12/30/2024 7:18 AM CDT N LABORATORY MCHC 32.6 31.5 - 36.5 g/dL 12/30/2024 7:18 AM CDT N LABORATORY RDW 13.5 10.0 - 15.0 % 12/30/2024 7:18 AM CDT N LABORATORY Platelet Count 230 150 - 450 10e3/uL 12/30/2024 7:18 AM CDT N LAB[facility]ATORY Blood TOPOGRAPHY UNKNOWN / Unknown Venipuncture / Unknown 12/30/2024 6:34 AM CDT 12/30/2024 7:04 AM CDT Tayla Lynch DO LAB - BLOOD ORDERABLES Final Result [facility] [address] [place] [address], [facility] * (ABNORMAL) Basic metabolic panel (12/30/2024 6:34 AM CDT) Sodium 134(L) 135 - 145 mmol/L 12/30/2024 7:26 AM CDT N [facility]ORY Potassium 4.6 3.4 - 5.3 mmol/L 12/30/2024 7:26 AM CDT [facility] Chloride 95(L) 98 - 107 mmol/L 12/30/2024 7:26 AM CDT [facility] Carbon Dioxide (CO2) 29 22 - 29 mmol/L 12/30/2024 7:26 AM CDT [facility] Anion Gap 10 7 - 15 mmol/L 12/30/2024 7:26 AM CDT N LABORATORY Urea Nitrogen 7.2 6.0 - 20.0 mg/dL 12/30/2024 7:26 AM CDT [facility] Creatinine 0.99 0.67 - 1.17 mg/dL 12/30/2024 7:26 AM CDT N LABORATORY GFR Estimate >90 >60 mL/min/1.7 3m2 12/30/2024 7:26 AM CDT N LABORATORY Comment:eGFR calculated usin 2020 CKD-EPI equation. Calcium 9.3 8.8 - 10.4 mg/dL 12/30/2024 7:26 AM CDT [facility] Glucose 122(H) 70 - 99 mg/dL 12/30/2024 7:26 AM CDT [facility] Blood TOPOGRAPHY UNKNOWN / Unknown Venipuncture / Unknown 12/30/2024 6:34 AM CDT 12/30/2024 7:04 AM CDT us Pam Barraza MD LAB - BLOOD ORDERABLES Final Re sult Performing Organization Address City/[facility]/ZIP Co de Phone Number [facility] [address] [place] [address], [facility] * (ABNORMAL) Glucose by meter (12/30/2024 6:10 AM CDT) GLUCOSE BY METER POCT 117(H) 70 - 99 mg/dL 12/30/2024 6:18 AM CDT [facility] POCT RESULTS Blood, Capillary BLOOD SPECIMEN / Unknown 12/30/2024 6:10 AM CDT 12/30/2024 6:18 AM CDT us Viet Gonzalez MD LAB - BEAKER POCT Final Result Performing Organization Address [facility] Co de Phone Number [facility] POCT RESULTS [address] [place] [address] * (ABNORMAL) Glucose by meter (12/30/2024 1:55 AM CDT) GLUCOSE BY METER POCT 112(H) 70 - 99 mg/dL 12/30/2024 2:02 AM CDT [facility] POCT RESULTS Blood, Capillary BLOOD SPECIMEN / Unknown 12/30/2024 1:55 AM CDT 12/30/2024 2:02 AM CDT us Viet Gonzalez MD LAB - BEAKER POCT Final Result Performing Organization Address City/[facility]/ZIP Co de Phone Number [facility] POCT RESULTS [address] [place] [address] * (ABNORMAL) Glucose by meter (12/29/2024 9:35 PM CDT) GLUCOSE BY METER POCT 117(H) 70 - 99 mg/dL 12/29/2024 9:43 PM CDT [facility] POCT RESULTS Comment:Dr/RN Notified Blood, Capillary BLOOD SPECIMEN / Unknown 12/29/2024 9:35 PM CDT 12/29/2024 9:43 PM CDT us Viet Gonzalez MD LAB - BEAKER POCT Final Result Performing Organization Address City/[facility]/ZIP Co de Phone Number [facility] POCT RESULTS [address] [place] [address] * (ABNORMAL) Glucose by meter (12/29/2024 6:07 PM CDT) GLUCOSE BY METER POCT 126(H) 70 - 99 mg/dL 12/29/2024 6:16 PM CDT [facility] POCT RESULTS Blood, Capillary BLOOD SPECIMEN / Unknown 12/29/2024 6:07 PM CDT 12/29/2024 6:16 PM CDT us Viet MOFFETT - PRACHI POCT Final Result Performing Organization Address [facility] Co de Phone Number [facility] POCT RESULTS [address] [place] [address] * (ABNORMAL) Glucose by meter (12/29/2024 3:03 PM CDT) GLUCOSE BY METER POCT 111(H) 70 - 99 mg/dL 12/29/2024 3:10 PM CDT [facility] POCT RESULTS Blood, Capillary BLOOD SPECIMEN / Unknown 12/29/2024 3:03 PM CDT 12/29/2024 3:10 PM CDT us Viet Gonzalez MD LAB - BEAKER POCT Final Result Performing Organization Address City/[facility]/ZIP Co de Phone Number [facility] POCT RESULTS [address] [place] [address] * (ABNORMAL) Glucose by meter (12/29/2024 10:16 AM CDT) Pathologist [facility] GLUCOSE BY METER POCT 148(H) 70 - 99 mg/dL 12/29/2024 10:23 AM CDT [facility] POCT RESULTS Blood, Capillary BLOOD SPECIMEN / Unknown 12/29/2024 10:16 AM CDT 12/29/2024 10:23 AM CDT us Viet Gonzalez MD LAB - BEAKER POCT Final Result [facility] POCT RESULTS [address] [place] [address] * (ABNORMAL) CBC with platelets (12/29/2024 6:53 AM CDT) [facility] WBC Count 14.3(H) 4.0 - 11.0 10e3/uL 12/29/2024 7:17 AM CDT [facility] RBC Count 4.21(L) 4.40 - 5.90 10e6/uL 12/29/2024 7:17 AM CDT [facility] Hemoglobin 13.5 13.3 - 17.7 g/dL 12/29/2024 7:17 AM CDT [facility] Hematocrit 39.9(L) 40.0 - 53.0 % 12/29/2024 7:17 AM CDT [facility] MCV 95 78 - 100 fL 12/29/2024 7:17 AM CDT [facility] MCH 32.1 26.5 - 33.0 pg 12/29/2024 7:17 AM CDT [facility] MCHC 33.8 31.5 - 36.5 g/dL 12/29/2024 7:17 AM CDT [facility] RDW 13.8 10.0 - 15.0 % 12/29/2024 7:17 AM CDT [facility] Platelet Count 207 150 - 450 10e3/uL 12/29/2024 7:17 AM CDT [facility] Blood STRUCTURE OF RIGHT UPPER LIMB / Unknown Venipuncture / Unknown 12/29/2024 6:53 AM CDT 12/29/2024 7:13 AM CDT us Tayla Lynch DO LAB - BLOOD ORDERABLES Final Result [facility] [address] [place] [address], [facility] * (ABNORMAL) Basic metabolic panel (12/29/2024 6:53 AM CDT) Sodium 135 135 - 145 mmol/L 12/29/2024 7:38 AM CDT [facility] Potassium 4.0 3.4 - 5.3 mmol/L 12/29/2024 7:38 AM CDT [facility] Chloride 97(L) 98 - 107 mmol/L 12/29/2024 7:38 AM CDT [facility] Carbon Dioxide (CO2) 28 22 - 29 mmol/L 12/29/2024 7:38 AM CDT [facility] Anion Gap 10 7 - 15 mmol/L 12/29/2024 7:38 AM CDT [facility] Urea Nitrogen 9.0 6.0 - 20.0 mg/dL 12/29/2024 7:38 AM CDT [facility] Creatinine 0.98 0.67 - 1.17 mg/dL 12/29/2024 7:38 AM CDT [facility] GFR Estimate >90 >60 mL/min/1.7 3m2 12/29/2024 7:38 AM CDT [facility] Comment:eGFR calculated us2020 CKD-EPI equation. Calcium 9.0 8.8 - 10.4 mg/dL 12/29/2024 7:38 AM CDT [facility] Glucose 139(H) 70 - 99 mg/dL 12/29/2024 7:38 AM T [facility] Blood STRUCTURE OF RIGHT UPPER LIMB / Unknown Venipuncture / Unknown 12/29/2024 6:53 AM CDT 12/29/2024 7:13 AM CDT us Tayla Lynch DO LAB - BLOOD ORDERABLES Final Result [facility] [address] [place] [address], [facility] * (ABNORMAL) Glucose by meter (12/29/2024 5:14 AM CDT) GLUCOSE BY METER POCT 138(H) 70 - 99 mg/dL 12/29/2024 5:21 AM CDT [facility] POCT RESULTS Blood, Capillary BLOOD SPECIMEN / Unknown 12/29/2024 5:14 AM CDT 12/29/2024 5:21 AM CDT us Colin Garcia MD LAB - BEAKER POCT Final Res ult Performing Organization Address City/[facility]/ZIP Co de Phone Number [facility] POCT RESULTS [address] [place] [address] * (ABNORMAL) Glucose by meter (12/29/2024 2:37 AM CDT) GLUCOSE BY METER POCT 135(H) 70 - 99 mg/dL 12/29/2024 2:43 AM CDT [facility] POCT RESULTS Blood, Capillary BLOOD SPECIMEN / Unknown 12/29/2024 2:37 AM CDT 12/29/2024 2:43 AM CDT Colin Garcia MD LAB - BEAKER POCT Final Res ult Performing Organization Address [facility] Co de Phone Number [facility] POCT RESULTS [address] [place] [address] * (ABNORMAL) Glucose by meter (12/28/2024 9:20 PM CDT) GLUCOSE BY METER POCT 146(H) 70 - 99 mg/dL 12/28/2024 9:27 PM CDT [facility] POCT RESULTS Blood, Capillary BLOOD SPECIMEN / Unknown 12/28/2024 9:20 PM CDT 12/28/2024 9:27 PM CDT us Colin Garcia MD LAB - BEAKER POCT Final Res ult Performing Organization Address [facility]/ZIP Co de Phone Number [facility] POCT RESULTS [address] [place] [address] * (ABNORMAL) Glucose by meter (12/28/2024 6:43 PM CDT) GLUCOSE BY METER POCT 152(H) 70 - 99 mg/dL 12/28/2024 6:50 PM CDT [facility] POCT RESULTS Blood, Capillary BLOOD SPECIMEN / Unknown 12/28/2024 6:43 PM CDT 12/28/2024 6:50 PM CDT us Colin Garcia MD LAB - BEAKER POCT Final Res ult [facility] POCT RESULTS [address] [place] [address] * ECG 12-Lead with MUSE ??? [facility] (12/28/2024 6:27 PM CDT) Systolic Blood Pressure mmHg RADIOLOGY RESULTS Diastolic Blood Pressure mmHg RADIOLOGY RESULTS Ventricular Rate 79 BPM RAD IOLOGY RESULTS Atrial Rate 79 BPM RADIOLOG Y RESULTS VT Interval 176 ms RADIOLOG Y RESULTS QRS Duration 88 ms RADIOLO GY RESULTS QT 396 ms RADIOLOGY RESULTS QTc 454 ms RADIOLOGY RESULTS P [place] 27 degrees RADIOLOGY RESULTS R AXIS -13 degrees RADIOLOGY RESULTS T [place] 49 degrees RADIOLOGY RESULTS Interpretation ECG Sinus rhythm RSR' in V1 Inferior infarct , age undetermined Abnormal ECG When compared with ECG of 27-Dec-2024 07:42, Inferior infarct is now Present Confirmed by ELIA SANABRIA, LES LOC:JN ([id number]) on 12/29/2024 4:29:30 PM RADIOLOGY RESULTS 12/28/2024 6:27 PM CDT 12/29/2024 4:29 PM CDT us Frank Victoria MD ECG ORDERABLES Edited Result - Final RADIOLOGY RESULTS * (ABNORMAL) Glucose by meter (12/28/2024 2:18 PM CDT) GLUCOSE BY METER POCT 152(H) 70 - 99 mg/dL 12/28/2024 2:25 PM CDT [facility] POCT RESULTS Blood, Capillary BLOOD SPECIMEN / Unknown 12/28/2024 2:18 PM CDT 12/28/2024 2:25 PM CDT Colin Garcia MD LAB - AKER POCT Final Res ult Performing Organization Address [facility] Co de Phone Number [facility] POCT RESULTS [address] [place] [address] * (ABNORMAL) Glucose by meter (12/28/2024 10:16 AM CDT) GLUCOSE BY METER POCT 178(H) 70 - 99 mg/dL 12/28/2024 10:23 AM CDT [facility] POCT RESULTS Blood, Capillary BLOOD SPECIMEN / Unknown 12/28/2024 10:16 AM CDT 12/28/2024 10:23 AM CDT Colin Garcia MD LAB - BEAKER POCT Final Res ult Performing Organization Address [facility] Co de Phone Number [facility] POCT RESULTS [address] [place] [address] * (ABNORMAL) Glucose by meter (12/28/2024 8:00 AM CDT) GLUCOSE BY METER POCT 185(H) 70 - 99 mg/dL 12/28/2024 8:06 AM CDT [facility] POCT RESULTS Blood, Capillary BLOOD SPECIMEN / Unknown 12/28/2024 8:00 AM CDT 12/28/2024 8:06 AM CDT Colin Garcia MD LAB - AKER POCT Final Res ult Performing Organization Address [facility]/ZIP Co de Phone Number [facility] POCT RESULTS [address] [place] [address] * (ABNORMAL) Hemoglobin A1c (12/28/2024 7:05 AM CDT) Estimated Average Glucose 189(H) <117 mg/dL 12/28/2024 7:46 AM CDT N LABORATORY Hemoglobin A1C 8.2(H) <5.7 % 12/28/2024 7:46 AM CDT N LABORATORY Comment: Normal <5.7% Prediabetes 5.7-6.4% Diabetes 6.5% or higher Note: Adopted from ADA consensus guidelines. Blood STRUCTURE OF RIGHT UPPER LIMB / Unknown Venipuncture / Unknown 12/28/2024 7:05 AM CDT 12/28/2024 7:26 AM CDT Colin Garcia MD LAB - BLOOD ORDERABLES Glenda l Result Performing Organization Address City/[facility]/ZIP Co de Phone Number [facility] [address] [place] [address], [facility] * (ABNORMAL) CBC with platelets (12/28/2024 7:05 AM CDT) WBC Count 13.5(H) 4.0 - 11.0 10e3/uL 12/28/2024 7:34 AM CDT [facility] RBC Count 4.55 4.40 - 5.90 10e6/uL 12/28/2024 7:34 AM CDT N LABORATORY Hemoglobin 13.9 13.3 - 17.7 g/dL 12/28/2024 7:34 AM CDT N LAB[facility]ATORY Hematocrit 42.6 40.0 - 53.0 % 12/28/2024 7:34 AM CDT N LABORATORY MCV 94 78 - 100 fL 12/28/2024 7:34 AM CDT N [facility]ORY MCH 30.5 26.5 - 33.0 pg 12/28/2024 7:34 AM CDT N [facility]ORY MCHC 32.6 31.5 - 36.5 g/dL 12/28/2024 7:34 AM CDT N [facility]ORY RDW 13.7 10.0 - 15.0 % 12/28/2024 7:34 AM CDT N [facility]ORY Platelet Count 212 150 - 450 10e3/uL 12/28/2024 7:34 AM CDT N LAB[facility]ATORY Blood STRUCTURE OF RIGHT UPPER LIMB / Unknown Venipuncture / Unknown 12/28/2024 7:05 AM CDT 12/28/2024 7:26 AM CDT Tayla Lynch DO LAB - BLOOD ORDERABLES Final Result [facility] [address] [place] [address], [facility] * (ABNORMAL) Basic metabolic panel (12/28/2024 7:05 AM CDT) Sodium 134(L) 135 - 145 mmol/L 12/28/2024 7:50 AM CDT [facility] Potassium 4.1 3.4 - 5.3 mmol/L 12/28/2024 7:50 AM CDT [facility] Chloride 97(L) 98 - 107 mmol/L 12/28/2024 7:50 AM CDT [facility] Carbon Dioxide (CO2) 29 22 - 29 mmol/L 12/28/2024 7:50 AM T [facility] Anion Gap 8 7 - 15 mmol/L 12/28/2024 7:50 AM CDT [facility] Urea Nitrogen 8.2 6.0 - 20.0 mg/dL 12/28/2024 7:50 AM CDT [facility] Creatinine 1.02 0.67 - 1.17 mg/dL 12/28/2024 7:50 AM CDT [facility] GFR Estimate >90 >60 mL/min/1.7 3m2 12/28/2024 7:50 AM T [facility] Comment:eGFR calculated usin 2020 CKD-EPI equation. Calcium 8.9 8.8 - 10.4 mg/dL 12/28/2024 7:50 AM T [facility] Glucose 180(H) 70 - 99 mg/dL 12/28/2024 7:50 AM T [facility] Blood STRUCTURE OF RIGHT UPPER LIMB / Unknown Venipuncture / Unknown 12/28/2024 7:05 AM CDT 12/28/2024 7:26 AM CDT Tayla Lynch DO LAB - BLOOD ORDERABLES Final Result [facility] [address] [place] [address], [facility] * (ABNORMAL) Glucose by meter (12/28/2024 5:50 AM CDT) GLUCOSE BY METER POCT 189(H) 70 - 99 mg/dL 12/28/2024 5:56 AM CDT [facility] POCT RESULTS Blood, Capillary BLOOD SPECIMEN / Unknown 12/28/2024 5:50 AM CDT 12/28/2024 5:56 AM CDT Colin Garcia MD LAB - BEAKER POCT Final Res ult Performing Organization Address City/[facility]/ZIP Co de Phone Number [facility] POCT RESULTS [address] [place] [address] * (ABNORMAL) Glucose by meter (12/28/2024 2:04 AM CDT) GLUCOSE BY METER POCT 174(H) 70 - 99 mg/dL 12/28/2024 2:10 AM CDT [facility] POCT RESULTS Blood, Capillary BLOOD SPECIMEN / Unknown 12/28/2024 2:04 AM CDT 12/28/2024 2:10 AM CDT us Colin Garcia MD LAB - BEAKER POCT Final Res ult Performing Organization Address [facility]/ZIP Co de Phone Number [facility] POCT RESULTS [address] [place] [address] * (ABNORMAL) Glucose by meter (12/27/2024 9:08 PM CDT) GLUCOSE BY METER POCT 174(H) 70 - 99 mg/dL 12/27/2024 9:15 PM CDT [facility] POCT RESULTS Blood, Capillary BLOOD SPECIMEN / Unknown 12/27/2024 9:08 PM CDT 12/27/2024 9:15 PM CDT us Colin Garcia MD LAB - BEAKER POCT Final Res ult Performing Organization Address City/[facility]/ZIP Co de Phone Number [facility] POCT RESULTS [address] [place] [address] * (ABNORMAL) Glucose by meter (12/27/2024 4:33 PM CDT) GLUCOSE BY METER POCT 176(H) 70 - 99 mg/dL 12/27/2024 4:39 PM CDT [facility] POCT RESULTS Blood, Capillary BLOOD SPECIMEN / Unknown 12/27/2024 4:33 PM CDT 12/27/2024 4:39 PM CDT us Colin Garcia MD LAB - BEAKER POCT Final Res ult [facility] POCT RESULTS [address] [place] [address] * (ABNORMAL) UA with Microscopic reflex to Culture (12/27/2024 11:46 AM CDT) Color Urine Yellow Colorless, Straw, Light Yellow, Yellow 12/27/2024 12:00 PM CDT [facility] Appearance Urine Clear Clear 12/28/19 12:00 PM CDT [facility] Glucose Urine Negative Negative mg/dL 12/27/2024 12:00 PM CDT [facility] Bilirubin Urine Negative Negative 12:00 PM CDT [facility] Ketones Urine Negative Negative mg/dL 12/27/2024 12:00 PM CDT [facility] Specific [place] Urine 1.010 1.003 - 1.035 BARBRA 12/27/2024 12:00 PM CDT [facility] Blood Urine >1.0 mg/dL(A) Negative 12/27/2024 12:00 PM CDT [facility] pH Urine 6.0 5.0 - 7.0 12/27/2024 12:00 PM CDT [facility] Protein Albumin Urine 70(A) Negative mg/dL 12/27/2024 12:00 PM CDT [facility] Urobilinogen Urine Normal Normal mg/dL 12/27/2024 12:00 PM CDT [facility] Nitrite Urine Negative Negative 12/27/2024 12:00 PM CDT [facility] Leukocyte Esterase Urine Negative Negative 12/27/2024 12:00 PM CDT [facility] Mucus Urine Present(A) None Seen /LPF 12/27/2024 12:00 PM CDT [facility] RBC Urine >182(H) <=2 /HPF 12/27/2024 12:00 PM CDT [facility] WBC Urine 0 <=5 /HPF 12/27/2024 12:00 PM CDT [facility] Urine MID-STREAM URINE SPECIMEN / Unknown Non-blood Collection / Unknown 12/27/2024 11:46 AM CDT 12/27/2024 11:51 AM CDT Narrative [facility] - 12/27/2024 12:00 PM CDT Urine Culture not indicated us Karely Garnica MD LAB - URINE ORDERABLES Final Result [facility] [address] [place] [id number], [facility] * Blood Culture Peripheral blood (BC) Arm, Right (12/27/2024 10:16 AM CDT) Culture No Growth 01/01/2025 12:05 PM CDT [facility] Peripheral blood (BC) STRUCTURE OF RIGHT UPPER LIMB / Unknown Venipuncture / Unknown 12/27/2024 10:16 AM CDT 12/27/2024 10:19 AM CDT us Karely Garnica MD LAB - MICRO GENERAL OR DERABLES Final Result Performing Organization Address City/[facility]/ZIP Co de Phone Number [facility] Inf. Diseases Di[facility]. Lab [address] [place] [address] * Blood Culture Peripheral blood (BC) Arm, Left (12/27/2024 10:10 AM CDT) Culture No Growth 01/01/2025 12:05 PM CDT [facility] Peripheral blood (BC) STRUCTURE OF LEFT UPPER LIMB / Unknown Venipuncture / Unknown 12/27/2024 10:10 AM CDT 12/27/2024 10:13 AM CDT us Karely Garnica MD LAB - MICRO GENERAL OR DERABLES Final Result [facility] Inf. Diseases Diag. Lab [address] [place] [address] * PTT (12/27/2024 9:43 AM CDT) aPTT 22 22 - 38 Seconds 12/27/2024 9:59 AM CDT [facility] Blood VENOUS LINE / Unknown Venipuncture / Unknown 12/27/2024 9:43 AM CDT 12/27/2024 9:46 AM CDT us Karely Garnica MD LAB - BLOOD ORDERABLES Final Result Performing Organization Address City/[facility]/ZIP Co de Phone Number [facility] [address] * INR (12/27/2024 9:43 AM CDT) Pathologist [facility] INR 1.01 0.85 - 1.15 12/27/2024 9:59 AM CDT N [facility] PT 13.5 11.8 - 14.8 Seconds 12/27/2024 9:59 AM CDT [facility] Blood VENOUS LINE / Unknown Venipuncture / Unknown 12/27/2024 9:43 AM CDT 12/27/2024 9:46 AM CDT us Karely Garnica MD LAB - BLOOD ORDERABLES Final Result [facility] [address] [place] [address], [facility] * Lactic Acid Whole Blood with 1X Repeat in 2 HR when >2 (12/27/2024 9:43 AM CDT) Lactic Acid, Initial 2.0 0.7 - 2.0 mmol/L 12/27/2024 9:53 AM CDT [facility] Blood VENOUS LINE / Unknown Venipuncture / Unknown 12/27/2024 9:43 AM CDT 12/27/2024 9:46 AM CDT Karely Garnica MD LAB - BLOOD ORDERABLES Final Result Performing Organization Address [facility] Co de Phone Number [facility] [address] [place] [id number], [facility] * Troponin T, High Sensitivity (12/27/2024 9:43 AM CDT) Troponin T, High Sensitivity 14 <=22 ng/L 12/27/2024 10:05 AM CDT [facility] Comment: Either a High Sensitivity Troponin T baseline (0 hours) value = 100 ng/L, or an increase in High Sensitivity Troponin T = 7 ng/L at 2 hours compared to 0 hours (2-0 hours), suggests myocardial injury, and urgent clinical attention is required. If the 2-0 hours increase is <7 ng/L, a High Sensitivity Troponin T result above gender-specific reference ranges warrants further evaluation. Recommendations for further evaluation include correlation with clinical decision-making tool (e.g., HEART), a 3rd High Sensitivity Troponin T test 2 hours after the 2nd (a 20% change from baseline would represent concern), admission for observation, close PCC/cardiology follow-up, or urgent outpatient provocative testing. Blood VENOUS LINE / Unknown Venipuncture / Unknown 12/27/2024 9:43 AM CDT 12/27/2024 9:46 AM CDT Karely Garnica MD LAB - BLOOD ORDERABLES Final Result Performing Organization Address [facility] Co de Phone Number [facility] [address] [place] [address], [facility] * (ABNORMAL) CTA Chest Abdomen Pelvis w Contrast (12/27/2024 8:58 AM CDT) Pathologist [facility] Radiologist flags Perforated viscus(AA) RADIOLOGY RESULTS Anatomical Region Laterality Modality Lower Extremity, SUBRAD IR P ROCEDURE, UMP CT CTA, RAD CT Computed Tomography 12/27/2024 8:58 AM CDT Impressions 12/27/2024 9:27 AM CDT IMPRESSION: 1. Perforated gastric ulcer, which appears to arise from the posterior antrum/pylorus. Trace adjacent pneumoperitoneum and free fluid, though no large/drainable collection. 2. No acute aortic abnormality. 3. 6 mm and 8 mm stones in the distal left ureter without significant upstream hydronephrosis. Extensive bilateral nonobstructing nephrolithiasis is similar to slightly increased compared to 07/16/2023. 4. Hepatic steatosis. [Critical Result: Perforated viscus] Finding was identified on 12/27/2024 9:[address] Garnica was contacted by me on 12/27/2024 9:24 AM CDT and verbalized understanding of the critical result. Narrative 12/27/2024 9:27 AM CDT EXAM: CTA CHEST ABDOMEN PELVIS W CONTRAST LOCATION: [facility] DATE: 12/27/2024 INDICATION: epigastric pain and right sided abd pain COMPARISON: CTA chest, CT abdomen pelvis 07/16/2023 TECHNIQUE: CT angiogram chest abdomen pelvis during arterial phase of injection of IV contrast. 2D and 3D MIP reconstructions were performed by the senior cytotechnologist. Dose reduction techniques were used. CONTRAST: 90ml [id number] FINDINGS: CT ANGIOGRAM CHEST, ABDOMEN, AND PELVIS: The thoracic aorta is nonaneurysmal without evidence of dissection or other acute abnormality. Proximal arch vessels are normal in appearance with note that the left vertebral artery arises directly from the arch (normal anatomic variant). The abdominal aorta is nonaneurysmal with scattered atheromatous disease but no evidence of dissection or other acute abnormality. The celiac, superior mesenteric, renal and inferior mesenteric arteries are patent without acute abnormality or flow-limiting stenosis. The bilateral common, internal and external iliac arteries as well as common femoral arteries are patent. LUNGS AND PLEURA: Central airways are patent. Centrilobular and paraseptal emphysema. Dependent atelectasis. No areas of consolidation. No pleural effusion. MEDIASTINUM/AXILLAE: Nonenlarged heart. No pericardial effusion. No thoracic lymphadenopathy. CORONARY ARTERY CALCIFICATION: Minimal. HEPATOBILIARY: Hepatic steatosis. No worrisome liver lesions. Cholecystectomy. PANCREAS: Normal. SPLEEN: Normal. ADRENAL GLANDS: Normal. KIDNEYS/BLADDER: Kidneys enhance symmetrically. Nonobstructing nephrolithiasis bilaterally, measuring up to 11 mm in the left lower pole and 9 mm in the right lower pole. There are 6 mm and 8 mm stones in the distal left ureter (series 8 image #90 and #98 respectively) without upstream hydronephrosis. Urinary bladder is unremarkable. BOWEL: Findings consistent with perforated gastric ulcer from the posterior antrum with trace pneumoperitoneum and adjacent free fluid (though no organized/drainable collection). Remainder of small and large bowel is normal in caliber. Appendectomy. LYMPH NODES: Prominent romy hepatis lymph nodes are unchanged and likely reactive. PELVIC ORGANS: Normal contours. MUSCULOSKELETAL: No worrisome bone lesions. Unchanged appearance of the L5 vertebral body. Healed left 6th rib fracture. Procedure Note Ambrocio Lino MD - 12/27/2024 EXAM: CTA CHEST ABDOMEN PELVIS W CONTRAST LOCATION: [facility] DATE: 12/27/2024 INDICATION: epigastric pain and right sided abd pain COMPARISON: CTA chest, CT abdomen pelvis 07/16/2023 TECHNIQUE: CT angiogram chest abdomen pelvis during arterial phase ofinjection of IV contrast. 2D and 3D MIP reconstructions were performed bythe senior cytotechnologist. Dose reduction techniques were used. CONTRAST: 90ml isovue 370 FINDINGS: CT ANGIOGRAM CHEST, ABDOMEN, AND PELVIS: The thoracic aorta isnonaneurysmal without evidence of dissection or other acute abnormality.Proximal arch vessels are normal in appearance with note that the leftvertebral artery arises directly from the arch (normal anatomic variant). The abdominal aorta is nonaneurysmal with scattered atheromatous diseasebut no evidence of dissection or other acute abnormality. The celiac,superior mesenteric, renal and inferior mesenteric arteries are patentwithout acute abnormality or flow-limiting stenosis. The bilateral common, internal and external iliacarteries as well as common femoral arteries are patent. LUNGS AND PLEURA: Central airways are patent. Centrilobular and paraseptalemphysema. Dependent atelectasis. No areas of consolidation. No pleuraleffusion. MEDIASTINUM/AXILLAE: Nonenlarged heart. No pericardial effusion. Nothoracic lymphadenopathy. CORONARY ARTERY CALCIFICATION: Minimal. HEPATOBILIARY: Hepatic steatosis. No worrisome liver lesions.Cholecystectomy. PANCREAS: Normal. SPLEEN: Normal. ADRENAL GLANDS: Normal. KIDNEYS/BLADDER: Kidneys enhance symmetrically. Nonobstructingnephrolithiasis bilaterally, measuring up to 11 mm in the left lower poleand 9 mm in the right lower pole. There are 6 mm and 8 mm stones in thedistal left ureter (series 8 image #90 and #98 respectively) without upstream hydronephrosis. Urinary bladder isunremarkable. BOWEL: Findings consistent with perforated gastric ulcer from theposterior antrum with trace pneumoperitoneum and adjacent free fluid(though no organized/drainable collection). Remainder of small and large bowel is normal in caliber. Appendectomy. LYMPH NODES: Prominent romy hepatis lymph nodes are unchanged and likelyreactive. PELVIC ORGANS: Normal contours. MUSCULOSKELETAL: No worrisome bone lesions. Unchanged appearance of the [id number] body. Healed left 6th rib fracture. IMPRESSION: 1. Perforated gastric ulcer, which appears to arise from the posteriorantrum/pylorus. Trace adjacent pneumoperitoneum and free fluid, though nolarge/drainable collection. 2. No acute aortic abnormality. 3. 6 mm and 8 mm stones in the distal left ureter without significantupstream hydronephrosis. Extensive bilateral nonobstructingnephrolithiasis is similar to slightly increased compared to 07/16/2023. 4. Hepatic steatosis. [Critical Result: Perforated viscus] Finding was identified on 12/27/2024 9:[address] Garnica was contacted by me on 12/27/2024 9:24 AM CDT and verbalizedunderstanding of the critical result. Karely Garnica MD [facility] CT ORDERABLES Glenda l Result * Adult Type and Screen (12/27/2024 7:46 AM CDT) ABO/RH(D) A POS 12/27/2024 9:30 AM CDT [facility]OD [facility] Antibody Screen Negative Negative 12/27/2024 9:30 AM CDT [facility] SPECIMEN EXPIRATION DATE 12/30/2024 11:59:00 PM CDT 12/27/2024 9:30 AM CDT [facility] Blood BLOOD SPECIMEN / Unknown Venipuncture / Unknown 12/27/2024 7:46 AM CDT 12/27/2024 7:51 AM CDT us Karely Garnica MD LAB - BLOOD BANK TEST ORDER Final Result [facility] [address] [id number], [facility] * CBC with platelets and differential (12/27/2024 7:46 AM CDT) WBC Count 9.9 4.0 - 11.0 10e3/uL 12/27/2024 7:58 AM CDT [facility] RBC Count 4.95 4.40 - 5.90 10e6/uL 12/27/2024 7:58 AM CDT [facility] Hemoglobin 15.7 13.3 - 17.7 g/dL 12/27/2024 7:58 AM CDT [facility] Hematocrit 44.8 40.0 - 53.0 % 12/27/2024 7:58 AM CDT [facility] MCV 91 78 - 100 fL 12/27/2024 7:58 AM CDT [facility] MCH 31.7 26.5 - 33.0 pg 12/27/2024 7:58 AM CDT [facility] MCHC 35.0 31.5 - 36.5 g/dL 12/27/2024 7:58 AM CDT [facility] RDW 13.2 10.0 - 15.0 % 12/27/2024 7:58 AM CDT [facility] Platelet Count 240 150 - 450 10e3/uL 12/27/2024 7:58 AM CDT [facility] % Neutrophils 70 % 12/27/2024 7:58 AM CDT [facility] % Lymphocytes 18 % 12/27/2024 7:58 AM CDT [facility] % Monocytes 7 % 12/27/2024 7:58 AM CDT [facility] % Eosinophils 4 % 12/27/2024 7:58 AM CDT [facility] % Basophils 1 % 12/27/2024 7:58 AM CDT [facility] % Immature Granulocytes 1 % 12/27/2024 7:58 AM CDT [facility] NRBCs per 100 WBC 0 <1 /100 025 7:58 AM CDT [facility] Absolute Neutrophils 6.9 1.6 - 8.3 10e3/uL 12/27/2024 7:58 AM CDT [facility] Absolute Lymphocytes 1.8 0.8 - 5.3 10e3/uL 12/27/2024 7:58 AM CDT [facility] Absolute Monocytes 0.7 0.0 - 1.3 10e3/uL 12/27/2024 7:58 AM CDT [facility] Absolute Eosinophils 0.4 0.0 - 0.7 10e3/uL 12/27/2024 7:58 AM CDT [facility] Absolute Basophils 0.1 0.0 - 0.2 10e3/uL 12/27/2024 7:58 AM CDT [facility] Absolute Immature Granulocytes 0.1 <=0.4 10e3/uL 12/27/2024 7:58 AM CDT [facility] Absolute NRBCs 0.0 10e3/uL 12/27/2024 7:58 AM CDT [facility] Blood BLOOD SPECIMEN / Unknown Venipuncture / Unknown 12/27/2024 7:46 AM CDT 12/27/2024 7:51 AM CDT us Karely Garnica MD LAB - BLOOD ORDERABLES Final Result [facility] [address] [place] [address], [facility] * Troponin T, High Sensitivity (12/27/2024 7:46 AM CDT) Troponin T, High Sensitivity 15 <=22 ng/L 12/27/2024 8:19 AM CDT [facility] Comment: Either a High Sensitivity Troponin T baseline (0 hours) value = 100 ng/L, or an increase in High Sensitivity Troponin T = 7 ng/L at 2 hours compared to 0 hours (2-0 hours), suggests myocardial injury, and urgent clinical attention is required. If the 2-0 hours increase is <7 ng/L, a High Sensitivity Troponin T result above gender-specific reference ranges warrants further evaluation. Recommendations for further evaluation include correlation with clinical decision-making tool (e.g., HEART), a 3rd High Sensitivity Troponin T test 2 hours after the 2nd (a 20% change from baseline would represent concern), admission for observation, close PCC/cardiology follow-up, or urgent outpatient provocative testing. Blood BLOOD SPECIMEN / Unknown Venipuncture / Unknown 12/27/2024 7:46 AM CDT 12/27/2024 7:51 AM CDT Karely Garnica MD LAB - BLOOD ORDERABLES Final Result Performing Organization Address [facility] Co de Phone Number [facility] [address] * (ABNORMAL) Lipase (12/27/2024 7:46 AM CDT) Lipase 78(H) 13 - 60 U/L 12/27/2024 8:19 AM CDT [facility] Blood BLOOD SPECIMEN / Unknown Venipuncture / Unknown 12/27/2024 7:46 AM CDT 12/27/2024 7:51 AM CDT Karely Garnica MD LAB - BLOOD ORDERABLES Final Result Performing Organization Address [facility] Co de Phone Number [facility] [address] * Hepatic function panel (12/27/2024 7:46 AM CDT) Protein Total 6.7 6.4 - 8.3 g/dL 12/27/2024 8:19 AM CDT [facility] Albumin 4.2 3.5 - 5.2 g/dL 12/27/2024 8:19 AM CDT [facility] Bilirubin Total 0.8 <=1.2 mg/dL 12/27/2024 8:19 AM CDT [facility] Alkaline Phosphatase 63 40 - 150 U/L 12/27/2024 8:19 AM CDT [facility] AST 24 0 - 45 U/L 12/27/2024 8:19 AM CDT [facility] ALT 38 0 - 70 U/L 12/27/2024 8:19 AM CDT [facility] Bilirubin Direct 0.19 0.00 - 0.30 mg/dL 12/27/2024 8:19 AM CDT [facility] Comment:As of 24, refer ence ranges and trending lines may vary depending on the testing location. Blood BLOOD SPECIMEN / Unknown Venipuncture / Unknown 12/27/2024 7:46 AM CDT 12/27/2024 7:51 AM CDT Karely Garnica MD LAB - BLOOD ORDERABLES Final Result [facility] [address] [place] [address], [facility] * (ABNORMAL) Basic metabolic panel (12/27/2024 7:46 AM CDT) Sodium 139 135 - 145 mmol/L 12/27/2024 8:19 AM CDT [facility] Potassium 4.6 3.4 - 5.3 mmol/L 12/27/2024 8:19 AM CDT [facility] Chloride 102 98 - 107 mmol/L 12/27/2024 8:19 AM T [facility] Carbon Dioxide (CO2) 30(H) 22 - 29 mmol/L 12/27/2024 8:19 AM CDT [facility] Anion Gap 7 7 - 15 mmol/L 12/27/2024 8:19 AM CDT [facility] Urea Nitrogen 7.9 6.0 - 20.0 mg/dL 12/27/2024 8:19 AM T [facility] Creatinine 0.98 0.67 - 1.17 mg/dL 12/27/2024 8:19 AM CDT [facility] GFR Estimate >90 >60 mL/min/1.7 3m2 12/27/2024 8:19 AM CDT [facility] Comment:eGFR calculated usin 2020 CKD-EPI equation. Calcium 9.5 8.8 - 10.4 mg/dL 12/27/2024 8:19 AM CDT [facility] Glucose 204(H) 70 - 99 mg/dL 12/27/2024 8:19 AM CDT [facility] Blood BLOOD SPECIMEN / Unknown Venipuncture / Unknown 12/27/2024 7:46 AM CDT 12/27/2024 7:51 AM CDT us Karely Garnica MD LAB - BLOOD ORDERABLES Final Result [facility] [address] [place] [address], [facility] * ECG 12-LEAD WITH MUSE (E) (12/27/2024 7:42 AM CDT) Systolic Blood Pressure mmHg RADIOLOGY RESULTS Diastolic Blood Pressure mmHg RADIOLOGY RESULTS Ventricular Rate 89 BPM RAD IOLOGY RESULTS Atrial Rate 89 BPM RADIOLOG Y RESULTS VT Interval 170 ms RADIOLOG Y RESULTS QRS Duration 80 ms RADIOLO GY RESULTS QT 364 ms RADIOLOGY RESULTS QTc 442 ms RADIOLOGY RESULTS P [place] 50 degrees RADIOLOGY RESULTS R AXIS 232 degrees RADIOLOGY RESULTS T [place] 80 degrees RADIOLOGY RESULTS Interpretation ECG Sinus rhythm Indeterminate axis Borderline ECG When compared with ECG of 16-Jul-2023 12:18, Questionable change in QRS axis T wave amplitude has increased in Inferior leads Confirmed by SEE ED PROVIDER NOTE FOR, ECG INTERPRETATION (3999), market editor MuseAdmin, MuseAdmin () on 12/28/2024 1:00:45 PM RADIOLOGY RESULTS 12/27/2024 7:42 AM CDT 12/28/2024 1:00 PM CDT us Karely Garnica MD ECG ORDERABLES Edited Result - Final RADIOLOGY RESULTS documented in this encounter Visit Diagnoses Diagnosis Acute gastric ulcer with perforation (H)- Primary Acute gastric ulcer with perforation, without mention of obstruction Upper abdominal pain Abdominal pain, other specified site Right sided abdominal pain Abdominal pain, unspecified site Acute gastric ulcer with perforation (H) Acute gastric ulcer with perforation, without mention of obstruction Ureteral colic Renal colic Hypertension, unspecified type Ureteral stone Calculus of ureter Benign essential hypertension Essential hypertension, benign Tobacco use disorder Type 2 diabetes mellitus treated without insulin (H) Ureteral colic Renal colic Right sided abdominal pain Abdominal pain, unspecified site Upper abdominal pain Abdominal pain, other specified site Hypertension, unspecified type documented in this encounter Admitting Diagnoses Diagnosis Acute gastric ulcer with perforation (H) Acute gastric ulcer with perforation, without mention of obstruction Ureteral colic Renal colic Right sided abdominal pain Abdominal pain, unspecified site Upper abdominal pain Abdominal pain, other specified site Hypertension, unspecified type documented in this encounter Administered Medications Inactive Administered Medications - up to 3 most recent administrations Medication Order MAR Action Action Date Dose Rate Site acetaminophen (TYLENOL) Suppository 650 mg 650 mg, Rectal, EVERY 4 HOURS PRN, mild pain, other, and adjunct with moderate or severe pain or per patient request, Starting on Thu12/27/24 at 1106, Alternate with ibuprofen if ordered. Maximum acetaminophen dose from all sources = 75 mg/kg/day not to exceed 4 grams/day. acetaminophen (TYLENOL) tablet 650 mg 650 mg, Oral, EVERY 4 HOURS PRN, mild pain, other, and adjunct with moderate or severe pain or per patient request, Starting on Thu12/27/24 at 1106, Alternate with ibuprofen if ordered. Maximum acetaminophen dose from all sources = 75 mg/kg/day not to exceed 4 grams/day. $Given 01/02/2025 6:15 AM CDT 650 mg amLODIPine (NORVASC) tablet 10 mg 10 mg, Oral, ONCE, On Thu12/27/24 at 0930, For 1 dose $Given 12/27/2024 9:19 AM CDT 10 mg amLODIPine (NORVASC) tablet 5 mg 5 mg, Oral, DAILY, First dose on Thu12/28/24 at 0800 $Given 01/02/2025 8:33 AM CDT 5 mg $Given 01/01/2025 8:32 AM CDT 5 mg bisacodyl (DULCOLAX) suppository 10 mg 10 mg, Rectal, DAILY PRN, constipation, Starting on Thu12/29/24 at 1106, Hold for loose stools. calcium carbonate (TUMS) chewable tablet 1,000 mg 1,000 mg, Oral, 4 TIMES DAILY PRN, heartburn, Starting on Thu12/27/24 at 1015 dextrose 50 % injection 25-50 mL 25-50 mL, Intravenous, EVERY 15 MIN PRN, low blood sugar, Administer over 1-5 Minutes, Starting on Thu12/27/24 at 1309, Use if have IV access, BG less than 70 mg/dL and meet dose criteria below: Dose if conscious and alert (or disorientated) and NPO = 25 mL Dose if unconscious / not alert = 50 mL Give first dose for initial blood glucose less than 70 mg/dL. If blood glucose at 15 minute recheck is less than or equal to 80 mg/dL continue to administer carbohydrate treatment every 15 minutes, as needed, based on blood glucose and assessment parameters until blood glucose level is above 80 mg/dL x 2 consecutive 15 minute checks. diatrizoate meglumine-sodium (GASTROGRAFIN/GASTROVIEW) 66-10 % solution 120 mL 120 mL, Oral, ONCE, On Thu12/30/24 at 1500, For 1 dose, Contact radiology for specific dilution and administration instructions. Oral administration of gastrografin is contraindicated in patients who might aspirate due to the risk of pulmonary edema, contact provider for alternative. $Given 12/30/2024 2:52 PM CDT 120 mLs fluconazole (DIFLUCAN) 800 mg in 0.9% NaCl 400 mL intermittent infusion Routine, 800 mg, Intravenous, ONCE, On Thu12/27/24 at 1030, For 1 dose, Indications: Gastric ulcer, general surgery requesting IV antifungalIndications:Gastric ulcer, general surgery requesting IV antifungal $New Bag 12/27/2024 11:09 AM CDT 800 mg 100 mL/hr fluconazole (DIFLUCAN) intermittent infusion 400 mg Routine, 400 mg, Intravenous, EVERY 24 HOURS, First dose on Thu12/28/24 at 1100, Indications: Fungal Infection Prophylaxis, Gastric ulcer, surgery requestingIndications:Fungal Infection Prophylaxis,Gastric ulcer, surgery requesting $New Bag 01/01/2025 1:12 PM CDT 400 mg 200 m L/hr $New Bag 12/31/2024 1:39 PM CDT 400 mg 200 mL/hr $New Bag 12/30/2024 10:54 AM CDT 400 mg 200 mL/hr glucagon injection 1 mg 1 mg, Subcutaneous, EVERY 15 MIN PRN, low blood sugar, May repeat x 1 only, Starting on Thu12/27/24 at 1309, May give SQ or IM. ONLY use glucagon IF patient has NO IV access AND is UNABLE to swallow AND blood glucose is LESS than or EQUAL to 50 mg/dL. glucose gel 15-30 g 15-30 g, Oral, EVERY 15 MIN PRN, low blood sugar, Starting on Thu12/27/24 at 1309, Give first dose for initial blood glucose less than 70 mg/dL per the dosing instructions below. If blood glucose at 15 minute rechecks is still less than or equal to 80 mg/dL, continue to administer doses per blood glucose parameters every 15 minutes, as needed, until blood glucose level is at or above 80 mg/dL x 2 consecutive 15 minute checks. Dosing Instructions: ~If patient is conscious and able to swallow and NO enteral tube For initial BG 51-69mg/dL OR 15 minute recheck BG 51- 80 mg/dL - give 15 g For BG less than or equal to 50 mg/dL - give 30 g ~ If Enteral tube For initial BG 51-69mg/dL OR 15 minute recheck BG 51- 80 mg/dL - give apple juice 120 mL (4 oz or 15 g of CHO) via enteral tube For BG less than or equal to 50 mg/dL - Give apple juice 240 mL (8 oz or 30 g of CHO) via enteral tube ~Oral gel is preferable for conscious and able to swallow patient. ~IF gel unavailable or patient refuses may provide apple juice per Enteral tube dosing instructions. Document juice on I and O flowsheet. hydrALAZINE (APRESOLINE) injection 5 mg 5 mg, Intravenous, ONCE, Administer over 1 Minutes, On Thu12/27/24 at 1230, For 1 dose $Given 12/27/2024 12:28 PM CDT 5 mg HYDROmorphone (DILAUDID) injection 1 mg 1 mg, Intravenous, ONCE, On Thu12/27/24 at 0930, For 1 dose $Given 12/27/2024 9:08 AM CDT 1 mg HYDROmorphone (DILAUDID) tablet 2 mg 2 mg, Oral, EVERY 2 HOURS PRN, moderate pain, Starting on Thu01/01/25 at 1124 $Given 01/02/2025 6:15 AM CDT 2 mg $Given 01/01/2025 12:04 PM CDT 2 mg HYDROmorphone (PF) (DILAUDID) injection 0.5 mg 0.5 mg, Intravenous, ONCE, On Thu12/27/24 at 0800, For 1 dose $Given 12/27/2024 7:53 AM CDT 0.5 mg insulin aspart (NovoLOG) injection (RAPID ACTING) 1-7 Units, Subcutaneous, EVERY 4 HOURS, First dose on Thu12/27/24 at 1600, Correction Scale - MEDIUM INSULIN RESISTANCE DOSING Do Not give Correction Insulin if BG less than 140. For BG 140 - 189 give 1 unit. For BG 190 - 239 give 2 units. For BG 240 - 289 give 3 units. For BG 290 - 339 give 4 units. For BG 340 - 389 give 5 units. For BG 390 - 439 give 6 units. For BG greater than or equal to 440 give 7 units. Check blood glucose Q4H and administer based on blood glucose. Notify provider if glucose greater than or equal to 350 mg/dL after administration of correction dose. $Given 01/02/2025 6:04 AM CDT 1 Units $Given 01/02/2025 2:10 AM CDT 1 Units $Given 01/01/2025 9:56 PM CDT 1 Units iopamidol (ISOVUE-370) solution 90 mL 90 mL, Intravenous, ONCE, On Thu12/27/24 at 0900, For 1 dose $Given 12/27/2024 8:57 AM CDT 90 mLs labetalol (NORMODYNE/TRANDATE) injection 10 mg 10 mg, Intravenous, ONCE PRN, high blood pressure, Starting on Thu12/27/24 at 2229, For 1 dose, Administer for sustained SBP > 180 $Given 12/27/2024 10:37 PM CDT 10 mg labetalol (NORMODYNE/TRANDATE) injection 10 mg 10 mg, Intravenous, ONCE PRN, high blood pressure, Starting on Thu12/28/24 at 0356, For 1 dose, Administer for sustained SBP > 180 $Given 12/28/2024 4:11 AM CDT 10 mg labetalol (NORMODYNE/TRANDATE) injection 10 mg 10 mg, Intravenous, ONCE PRN, high blood pressure, Starting on Thu12/29/24 at 1539, For 1 dose, SBP > 190 $Given 12/29/2024 5:05 PM CDT 10 mg labetalol (NORMODYNE/TRANDATE) injection 20 mg 20 mg, Intravenous, EVERY 6 HOURS PRN, high blood pressure, For SBP >190 or DBP >100, Starting on Thu12/30/24 at 0009 $Given 01/01/2025 4:40 AM CDT 20 mg $Given 12/31/2024 4:23 AM CDT 20 mg $Given 12/30/2024 3:43 PM CDT 20 mg lactated ringers infusion at 75 mL/hr, Intravenous, CONTINUOUS, Starting on Thu12/27/24 at 1130, Until 01/02/25 at 1642 $New Bag 01/02/2025 6:04 AM CDT 75 mL/hr $New Bag 01/01/2025 6:56 PM CDT 75 mL/hr Rate/Dose Verify 01/01/2025 6:55 PM CDT 75 mL/h r lidocaine (LMX4) cream Topical, EVERY 1 HOUR PRN, pain, with VAD insertion, Starting on Thu12/27/24 at 1015, Apply at least 30 minutes prior to VAD insertion in divided doses as needed for size of site for insertion. MAX Dose: 2.5 g ( of 5 g tube) Do NOT give if patient has a history of allergy to any local anesthetic or any rekha product. Do NOT use both lidocaine intradermal/subcutaneous injection and the lidocaine cream on the same site. lidocaine 1 % 0.1-1 mL 0.1-1 mL, Other, EVERY 1 HOUR PRN, mild pain with VAD insertion, Starting on Thu12/27/24 at 1015, MAX dose 1 mL subcutaneous OR intradermal along the side of the vein in divided doses as needed for VAD insertion. Do NOT give if patient has a history of allergy to any local anesthetic or any rekha product. Do NOT use both lidocaine intradermal/subcutaneous injection and the lidocaine cream on the same site. morphine ASSISTANT HALL DIRECTOR 1 mg/mL OPIOID TOLERANT Continuous Rate: 0 mg/hr, ASSISTANT HALL DIRECTOR Dose: 4 mg, ASSISTANT HALL DIRECTOR Lockout: 60 Minutes, One Hour Limit: 4 mg, Clinician Bolus (one time dose): 0 mg, Starting on Kym 12/29/24 at 1200, Hold the dose for analgesic side effects. Notify the provider to assess for uncontrolled pain or analgesic side effects. Do NOT give any additional opioids while on ASSISTANT HALL DIRECTOR unless provider authorized., Intravenous Rate/Dose Verify 12/30/2024 9:00 AM CDT $New Syringe/Cartridge 12/29/2024 1:59 PM CDT morphine ASSISTANT HALL DIRECTOR 1 mg/mL OPIOID TOLERANT Initial Set-up verified by: Naomi Grimes RN, Continuous Rate: 0 mg/hr, ASSISTANT HALL DIRECTOR Dose: 3 mg, ASSISTANT HALL DIRECTOR Lockout: 60 Minutes, One Hour Limit: 3 mg, Clinician Bolus (one time dose): 0 mg, Starting on Thu12/30/24 at 1030, Hold the dose for analgesic side effects. Notify the provider to assess for uncontrolled pain or analgesic side effects. Do NOT give any additional opioids while on ASSISTANT HALL DIRECTOR unless provider authorized., Intravenous Shift Total 12/31/2024 7:33 AM CDT Shift Total 12/30/2024 10:00 PM CDT Shift Total 12/30/2024 7:00 PM CDT morphine ASSISTANT HALL DIRECTOR 1 mg/mL OPIOID TOLERANT Initial Set-up verified by: Naomi Grimes RN, Continuous Rate: 0 mg/hr, ASSISTANT HALL DIRECTOR Dose: 2 mg, ASSISTANT HALL DIRECTOR Lockout: 60 Minutes, One Hour Limit: 2 mg, Clinician Bolus (one time dose): 0 mg, Starting on Thu12/31/24 at 1430, Hold the dose for analgesic side effects. Notify the provider to assess for uncontrolled pain or analgesic side effects. Do NOT give any additional opioids while on ASSISTANT HALL DIRECTOR unless provider authorized., Intravenous, On hold since Thu01/01/2025 at 1124 until manually unheld Shift Total 01/01/2025 6:44 AM CDT Shift Total 01/01/2025 6:00 AM CDT Shift Total 12/31/2024 9:38 PM CDT morphine (PF) injection 2 mg 2 mg, Intravenous, EVERY 2 HOURS PRN, severe pain, IF patient cannot take oral opioid OR IF pain not managed with non-pharmacological, non-opioid, or oral opioid interventions if ordered, Starting on Thu12/27/24 at 1106, May use concomitant with non-opioid analgesics. $Given 12/27/2024 1:46 PM CDT 2 mg $Given 12/27/2024 11:30 AM CDT 2 mg morphine (PF) injection 2 mg 2 mg, Intravenous, EVERY 2 HOURS PRN, moderate pain, IF patient cannot take oral opioid OR IF pain not managed with non-pharmacological, non-opioid, or oral opioid interventions if ordered, Starting on Thu12/27/24 at 1423, May use concomitant with non-opioid analgesics., On hold since Thu01/01/2025 at 1124 until manually unheld $Given 12/27/2024 2:42 PM CDT 2 mg morphine (PF) injection 4 mg 4 mg, Intravenous, EVERY 2 HOURS PRN, severe pain, IF patient cannot take oral opioid OR IF pain not managed with non-pharmacological, non-opioid, or oral opioid interventions if ordered, Starting on Thu12/27/24 at 1423, May use concomitant with non-opioid analgesics., On hold since Thu01/01/2025 at 1124 until manually unheld $Given 12/29/2024 11:56 AM CDT 4 mg $Given 12/29/2024 9:30 AM CDT 4 mg $Given 12/29/2024 7:28 AM CDT 4 mg naloxone (NARCAN) injection 0.2 mg 0.2 mg, Intravenous, EVERY 2 MIN PRN, opioid reversal, Starting on Thu12/27/24 at 1310, Administer intravenous route when available and notify provider when administered. For unintended sedation or respiratory depression if all of the below criteria are met: ~ respiratory rate LESS than or EQUAL to 8. ~SaO2 less than 92% and or/end-tidal CO2 is greater than 50. ~ the patient is receiving an opioid, has unintended sedations assessed as RASS (-3), and is currently not on mechanical ventilation. RASS scale moderate (-3) is movement or eye opening to voice but no eye contact. Patient Monitoring Once the patient has demonstrated a response to the naloxone, continue to monitor respiratory rate, depth, oxygen saturation and end-tidal CO2 (if available) every 15 minutes x 2, then every 30 minutes x 2, then every 1 hour x 1 after each naloxone dose. Consider transfer to ICU if patient respiratory parameters have not improved after 4 naloxone doses. naloxone (NARCAN) injection 0.2 mg 0.2 mg, Intramuscular, EVERY 2 MIN PRN, opioid reversal, Starting on Thu12/27/24 at 1310, Administer intramuscular if an intravenous route is not available and notify provider when administered. For unintended sedation or respiratory depression if all of the below criteria are met: ~ respiratory rate LESS than or EQUAL to 8. ~SaO2 less than 92% and or/end-tidal CO2 is greater than 50. ~ the patient is receiving an opioid, has unintended sedations assessed as RASS (-3), and is currently not on mechanical ventilation. RASS scale moderate (-3) is movement or eye opening to voice but no eye contact. Patient Monitoring Once the patient has demonstrated a response to the naloxone, continue to monitor respiratory rate, depth, oxygen saturation and end-tidal CO2 (if available) every 15 minutes x 2, then every 30 minutes x 2, then every 1 hour x 1 after each naloxone dose. Consider transfer to ICU if patient respiratory parameters have not improved after 4 naloxone doses. naloxone (NARCAN) injection 0.4 mg 0.4 mg, Intravenous, EVERY 2 MIN PRN, opioid reversal, Starting on Thu12/27/24 at 1310, Administer intravenous route when available and notify provider when administered. For unintended sedation or respiratory depression if all of the below criteria are met: ~ respiratory rate LESS than or EQUAL to 8. ~ SaO2 less than 92% and or/end-tidal CO2 is greater than 50. ~ the patient is receiving an opioid, has unintended sedation assessed as RASS (-4) or (-5) and patient is currently not on mechanical ventilation. RASS scale (-4) is deep sedation with no response to voice but movement or eye opening to physical stimulation. RASS scale (-5) is unarousable. Patient Monitoring Once the patient has demonstrated a response to the naloxone, continue to monitor respiratory rate, depth, oxygen saturation and end-tidal CO2 (if available) every 15 minutes x 2, then every 30 minutes x 2, then every 1 hour x 1 after each naloxone dose. Consider transfer to ICU if patient respiratory parameters have not improved after 4 naloxone doses. naloxone (NARCAN) injection 0.4 mg 0.4 mg, Intramuscular, EVERY 2 MIN PRN, opioid reversal, Starting on Thu12/27/24 at 1310, Administer intramuscular if an intravenous route is not available and notify provider when administered. For unintended sedation or respiratory depression if all of the below criteria are met: ~ respiratory rate LESS than or EQUAL to 8. ~ SaO2 less than 92% and or/end-tidal CO2 is greater than 50. ~ the patient is receiving an opioid, has unintended sedation assessed as RASS (-4) or (-5) and patient is currently not on mechanical ventilation. RASS scale (-4) is deep sedation with no response to voice but movement or eye opening to physical stimulation. RASS scale (-5) is unarousable. Patient Monitoring Once the patient has demonstrated a response to the naloxone, continue to monitor respiratory rate, depth, oxygen saturation and end-tidal CO2 (if available) every 15 minutes x 2, then every 30 minutes x 2, then every 1 hour x 1 after each naloxone dose. Consider transfer to ICU if patient respiratory parameters have not improved after 4 naloxone doses. ondansetron (ZOFRAN ODT) ODT tab 4 mg 4 mg, Oral, EVERY 6 HOURS PRN, nausea/vomiting - 1st line, Starting on Thu12/27/24 at 1106, This is Step 1 of nausea and vomiting management. If nausea not resolved in 15 minutes, go to Step 2 prochlorperazine (COMPAZINE). With dry hands, peel back foil backing and gently remove tablet. Do not push oral disintegrating tablet through foil backing. Administer immediately on tongue and oral disintegrating tablet dissolves in seconds, then swallow with saliva. Liquid not required. ondansetron (ZOFRAN) injection 4 mg 4 mg, Intravenous, ONCE, Administer over 2-5 Minutes, On Thu12/27/24 at 0800, For 1 dose $Given 12/27/2024 7:49 AM CDT 4 mg ondansetron (ZOFRAN) injection 4 mg 4 mg, Intravenous, EVERY 6 HOURS PRN, nausea/vomiting - 1st line, Administer over 2-5 Minutes, Starting on Thu12/27/24 at 1106, Give IF patient unable to tolerate oral medication. This is Step 1 of nausea and vomiting management. If nausea not resolved in 15 minutes, go to Step 2 prochlorperazine (COMPAZINE). $Given 12/30/2024 2:07 PM CDT 4 mg oxyCODONE (ROXICODONE) tablet 5 mg 5 mg, Oral, EVERY 4 HOURS PRN, severe pain, moderate pain, Starting on Thu01/02/25 at 1028 $Given 01/02/2025 11:48 AM CDT 5 mg pantoprazole (PROTONIX) EC tablet 40 mg 40 mg, Oral, 2 TIMES DAILY BEFORE MEALS, First dose on Thu01/02/25 at 1630, DO NOT CRUSH. pantoprazole (PROTONIX) injection 40 mg 40 mg, Intravenous, 2 TIMES DAILY, First dose on Thu12/27/24 at 2000, Reconstitute 40 mg vial with 10 mL 0.9% sodium chloride to yield a final concentration of 4 mg/mL. $Given 01/02/2025 8:33 AM CDT 40 m g $Given 01/01/2025 9:55 PM CDT 40 mg $Given 01/01/2025 8:34 AM CDT 40 mg pantoprazole (PROTONIX) injection 80 mg 80 mg, Intravenous, ONCE, On Thu12/27/24 at 0930, For 1 dose, Reconstitute 40 mg vial with 10 mL 0.9% sodium chloride to yield a final concentration of 4 mg/mL. $Given 12/27/2024 9:33 AM CDT 80 m g piperacillin-tazobactam (ZOSYN) 4.5 g vial to attach to NS 100 mL bag STAT, 4.5 g, Intravenous, ONCE, On Thu12/27/24 at 1030, For 1 dose, The Dose has been adjusted from 3.375 to 4.5 based on patient's Weight per the Automatic Medication Dose Adjustment-Adult and Pediatric policy. Lactated Ringer's solution is not compatible with piperacillin-tazobactam for injection., Indications: Intra-Abdominal InfectionIndications:Intra-Abdominal Infection $New Bag 12/27/2024 10:21 AM CDT 4.5 g piperacillin-tazobactam (ZOSYN) 4.5 g vial to attach to NS 100 mL bag Routine, 4.5 g, Intravenous, EVERY 6 HOURS, First dose on Thu12/27/24 at 1600, The Dose has been adjusted from 3.375 to 4.5 based on patient's Weight per the Automatic Medication Dose Adjustment-Adult and Pediatric policy. Lactated Ringer's solution is not compatible with piperacillin-tazobactam for injection., Indications: Intra-Abdominal InfectionIndications:Intra-Abdominal Infection $New Bag 01/02/2025 9:37 AM CDT 4.5 g $New Bag 01/02/2025 4:29 AM CDT 4.5 g $New Bag 01/01/2025 9:55 PM CDT 4.5 g polyethylene glycol (MIRALAX) Packet 17 g 17 g, Oral, 2 TIMES DAILY PRN, constipation, Starting on Thu12/27/24 at 1106, IF more than 1 constipation PRN medication is ordered, administer step-martinez as indicated, moving to the next step ONLY if prior step ineffective. Step 1: senna-docusate (SENOKOT-S; PERICOLACE) OR bisacodyl (DULCOLAX) EC tablet Step 2: polyethylene glycol (MIRALAX/GLYCOLAX) Step 3: bisacodyl (DULCOLAX) suppository Step 4: enema 1 Packet = 17 grams. Mix each gram with at least 1/2 ounce (15 mL) of water - 8 ounces for 17 g dose, 4 ounces for 8.5 g dose, 2 ounces for 4 g dose. Follow with the same volume of water. Hold for loose stools unless being administered as part of a bowel prep regimen or bowel clean out. prochlorperazine (COMPAZINE) injection 10 mg 10 mg, Intravenous, EVERY 6 HOURS PRN, nausea/vomiting - 2nd line, Administer over 1-2 Minutes, Starting on Thu12/27/24 at 1106, IF patient unable to tolerate oral medication. This is Step 2 of nausea and vomiting management. Give if nausea not resolved 15 minutes after giving ondansetron (ZOFRAN). prochlorperazine (COMPAZINE) tablet 10 mg 10 mg, Oral, EVERY 6 HOURS PRN, nausea/vomiting - 2nd line, Starting on Thu12/27/24 at 1106, This is Step 2 of nausea and vomiting management. Give if nausea not resolved 15 minutes after giving ondansetron (ZOFRAN). senna-docusate (SENOKOT-S/PERICOLACE) 8.6-50 MG per tablet 1 tablet 1 tablet, Oral, 2 TIMES DAILY PRN, constipation, Starting on Thu12/27/24 at 1015, If no bowel movement in 24 hours, increase to 2 tablets by mouth. IF more than 1 constipation PRN medication is ordered, administer step-martinez as indicated, moving to the next step ONLY if prior step ineffective. Step 1: senna-docusate (SENOKOT-S; PERICOLACE) OR bisacodyl (DULCOLAX) EC tablet Step 2: polyethylene glycol (MIRALAX/GLYCOLAX) Step 3: bisacodyl (DULCOLAX) suppository Step 4: enema Hold for loose stools. senna-docusate (SENOKOT-S/PERICOLACE) 8.6-50 MG per tablet 2 tablet 2 tablet, Oral, 2 TIMES DAILY PRN, constipation, Starting on Thu12/27/24 at 1015, IF more than 1 constipation PRN medication is ordered, administer step-martinez as indicated, moving to the next step ONLY if prior step ineffective. Step 1: senna-docusate (SENOKOT-S; PERICOLACE) OR bisacodyl (DULCOLAX) EC tablet Step 2: polyethylene glycol (MIRALAX/GLYCOLAX) Step 3: bisacodyl (DULCOLAX) suppository Step 4: enema Hold for loose stools. sodium chloride (PF) 0.9% PF flush 3 mL 3 mL, Intracatheter, EVERY 8 HOURS SCHEDULED, First dose on Thu12/27/24 at 1400, to lock peripheral IV dormant line $Given 01/02/2025 6:04 AM CDT 3 mLs $Given 01/01/2025 9:57 PM CDT 3 mLs $Given 01/01/2025 6:44 AM CDT 3 mLs sodium chloride (PF) 0.9% PF flush 3 mL 3 mL, Intracatheter, EVERY 1 MIN PRN, line flush, other, to ensure patency or to lock dormant line, Starting on Thu12/27/24 at 1015 $Given 01/01/2025 4:4 6 AM CDT 3 mLs $Given 12/31/2024 7:53 PM CDT 3 mLs sodium chloride 0.9 % infusion at 125 mL/hr, Intravenous, ONCE, 1 dose, On Thu12/27/24 at 0800 Rate/Dose Verify 12/27/2024 10:29 AM CDT 125 mL/hr $New Bag 12/27/2024 7:54 AM CDT 125 mL/hr sodium chloride 0.9% BOLUS 1,000 mL Intravenous, 1,000 mL, ONCE, at 500 mL/hr, Administer over 2 Hours, On Thu12/31/24 at 1400, For 1 dose $New Bag 12/31/2024 3:30 PM CDT 1,000 mLs 500 mL/hr sucralfate (CARAFATE) suspension 1 g 1 g, Oral, 4 TIMES DAILY BEFORE MEALS & NIGHTLY, First dose on Thu12/31/24 at 1330, Shake well. Recommended to take before meals. $Given 01/02/2025 11:48 AM CDT 1 g $Given 01/02/2025 6:04 AM CDT 1 g $Given 01/01/2025 9:55 PM CDT 1 g tamsulosin (FLOMAX) capsule 0.4 mg 0.4 mg, Oral, AT BEDTIME, First dose on Thu12/27/24 at 2200, Administer 30 minutes after the same meal each day. Capsules should be swallowed whole; do not crush chew or open. $Given 01/01/2025 9:55 PM CDT 0.4 mg $Given 12/31/2024 9:31 PM CDT 0.4 mg documented in this encounter Active and Recently Administered Medications Times are shown in CDT. Scheduled Medication Order 12/31/2024 01/01/2025 01/02/2025 amLODIPine (NORVASC) tablet 5 mg 5 mg, Oral, DAILY, First dose on Thu12/28/24 at 0800 0800 (Automatically Held)1406 (Unheld by provider - Provider: Macho Saravia MD) 0832 ($Given - Provider: Haley Perez RN) 0833 ($Given - Provider: Umu Daley RN) fluconazole (DIFLUCAN) intermittent infusion 400 mg (CANCELED) Routine, 400 mg, Intravenous, EVERY 24 HOURS, First dose on Thu12/28/24 at 1100, Indications: Fungal Infection Prophylaxis, Gastric ulcer, surgery requesting 1339 ($New Bag - Provider: Erendira Khan RN - Comment: loss of iv access) 1312 ($New Bag - Provider: Haley Perez RN) insulin aspart (NovoLOG) injection (RAPID ACTING) 1-7 Units, Subcutaneous, EVERY 4 HOURS, First dose on Thu12/27/24 at 1600, Correction Scale - MEDIUM INSULIN RESISTANCE DOSING Do Not give Correction Insulin if BG less than 140. For BG 140 - 189 give 1 unit. For BG 190 - 239 give 2 units. For BG 240 - 289 give 3 units. For BG 290 - 339 give 4 units. For BG 340 - 389 give 5 units. For BG 390 - 439 give 6 units. For BG greater than or equal to 440 give 7 units. Check blood glucose Q4H and administer based on blood glucose. Notify provider if glucose greater than or equal to 350 mg/dL after administration of correction dose. 0219 (Not Given - Provider: Shirley Hidalgo - Reason: Order parameters not met - Comment: BG [phone] (Not Given - Provider: Antolin Garcia RN - Reason: Order parameters not met)1117 ($Given - Provider: Haley Perez RN)1445 (Not Given - Provider: Haley Perez RN - Reason: Order parameters not met - Comment: BS [phone] ($Given - Provider: Haley Perez RN)2125 (Not Given - Provider: Venkatesh Barreto RN - Reason: Order parameters not met) 0157 (Not Given - Provider: Venkatesh Barreto RN - Reason: Order parameters not met)0643 (Not Given - Provider: Venkatesh Barreto RN - Reason: Order parameters not met)1130 ($Given - Provider: Haley Perez RN - Comment: bs [phone] ($Given - Provider: Haley Perez RN - Comment: bs [phone] ($Given - Provider: Haley Perez RN - Comment: bs)2156 ($Given - Provider: Antolin Garcia RN) 0210 ($Given - Provider: Antolin Garcia RN)0604 ($Given - Provider: Antolin Garcia RN)0937 (Not Given - Provider: Umu Daley RN - Reason: Order parameters not met)1400 (Canceled Entry - Provider: Orders Generic Provider - Comment: Automatically canceled at discontinue of medication order) pantoprazole (PROTONIX) EC tablet 40 mg 40 mg, Oral, 2 TIMES DAILY BEFORE MEALS, First dose on Thu01/02/25 at 1630, DO NOT CRUSH. 1630 (Canceled Entry - Provider: Orders Generic Provider - Comment: Automatically canceled at discontinue of medication order) pantoprazole (PROTONIX) injection 40 mg (CANCELED) 40 mg, Intravenous, 2 TIMES DAILY, First dose on Thu12/27/24 at 2000, Reconstitute 40 mg vial with 10 mL 0.9% sodium chloride to yield a final concentration of 4 mg/mL. 1114 ($Given - Provider: Haley Perez RN)1958 ($Given - Provider: Venkatesh Barreto RN) 0834 ($Given - Provider: Haley Perez RN)2155 ($Given - Provider: Antolin Garcia RN) 0833 ($Given - Provider: Umu Daley RN) piperacillin-tazobactam (ZOSYN) 4.5 g vial to attach to NS 100 mL bag (CANCELED) Routine, 4.5 g, Intravenous, EVERY 6 HOURS, First dose on Thu12/27/24 at 1600, The Dose has been adjusted from 3.375 to 4.5 based on patient's Weight per the Automatic Medication Dose Adjustment-Adult and Pediatric policy. Lactated Ringer's solution is not compatible with piperacillin-tazobactam for injection., Indications: Intra-Abdominal Infection 0433 ($New Bag - Provider: Antolin Garcia RN)1213 ($New Bag - Provider: Haley Perez RN)1857 ($New Bag - Provider: Haley Perez RN)2136 ($New Bag - Provider: Venkatesh Barreto RN) 0435 ($New Bag - Provider: Venkatesh Barreto RN)1133 ($New Bag - Provider: Haley Perez RN)1747 ($New Bag - Provider: Haley Perez RN)2155 ($New Bag - Provider: Antolin Garcia RN) 0429 ($New Bag - Provider: Antolin Garcia RN)0937 ($New Bag - Provider: Umu Daley RN) sodium chloride (PF) 0.9% PF flush 3 mL 3 mL, Intracatheter, EVERY 8 HOURS SCHEDULED, First dose on Thu12/27/24 at 1400, to lock peripheral IV dormant line 0514 (Not Given - Provider: Antolin Garcia RN - Reason: IV Infusing)1343 ($Given - Provider: Erendira Khan RN)2136 ($Given - Provider: Venkatesh Barreto RN) 0644 ($Given - Provider: Venkatesh Barreto RN)1454 (Not Given - Provider: Haley Perez RN - Reason: IV Infusing)2157 ($Given - Provider: Antolin Garcia RN) 0604 ($Given - Provider: Antolin Garcia RN)1400 (Canceled Entry - Provider: Orders Generic Provider - Comment: Automatically canceled at discontinue of medication order) sodium chloride 0.9% BOLUS 1,000 mL (COMPLETED) Intravenous, 1,000 mL, ONCE, at 500 mL/hr, Administer over 2 Hours, On Thu12/31/24 at 1400, For 1 dose 1530 ($New Bag - Provider: Haley Perez RN) sucralfate (CARAFATE) suspension 1 g 1 g, Oral, 4 TIMES DAILY BEFORE MEALS & NIGHTLY, First dose on Thu12/31/24 at 1330, Shake well. Recommended to take before meals. 1533 ($Given - Provider: Haley Perez RN)1534 (Not Given - Provider: Haley Perez RN - Reason: Patient/family refused)2001 ($Given - Provider: Venkatesh Barreto RN) 0831 ($Given - Provider: Haley Perez RN)1132 ($Given - Provider: Haley Perez RN)1746 ($Given - Provider: Haley Perez RN)2155 ($Given - Provider: Antolin Garcia RN) 0604 ($Given - Provider: Antolin Garcia RN)1148 ($Given - Provider: Umu Daley RN)1630 (Canceled Entry - Provider: Orders Generic Provider - Comment: Automatically canceled at discontinue of medication order) tamsulosin (FLOMAX) capsule 0.4 mg 0.4 mg, Oral, AT BEDTIME, First dose on Thu12/27/24 at 2200, Administer 30 minutes after the same meal each day. Capsules should be swallowed whole; do not crush chew or open. 1406 (Unheld by provider - Provider: Macho Saravia MD)2131 ($Given - Provider: Venkatesh Barreto RN) 2155 ($Given - Provider: Antolin Garcia RN) Continuous Medication Order 12/31/2024 01/01/2025 01/02/2025 lactated ringers infusion at 75 mL/hr, Intravenous, CONTINUOUS, Starting on Thu12/27/24 at 1130, Until 01/02/25 at 1642 0221 ($New Bag - Provider: Shirley Hidalgo)1112 ($New Bag - Provider: Haley Perez RN)1529 (Rate/Dose Change - Provider: Haley Perez RN)1530 (Canceled Entry - Provider: Haley Perez RN)1543 (Canceled Entry - Provider: Haley Perez RN)1900 ($New Bag - Provider: Haley Perez RN) 0150 ($New Bag - Provider: Venkatesh Barreto RN)0831 ($New Bag - Provider: Haley Perez RN)1130 (Rate/Dose Change - Provider: Haley Perez RN)1855 (Rate/Dose Verify - Provider: Haley Perez RN)1856 ($New Bag - Provider: Haley Perez RN) 0604 ($New Bag - Provider: Antolin Garcia RN)1157 (Stopped - Provider: Umu Daley RN) morphine ASSISTANT HALL DIRECTOR 1 mg/mL OPIOID TOLERANT (CANCELED) Initial Set-up verified by: Naomi Grimes RN, Continuous Rate: 0 mg/hr, ASSISTANT HALL DIRECTOR Dose: 3 mg, ASSISTANT HALL DIRECTOR Lockout: 60 Minutes, One Hour Limit: 3 mg, Clinician Bolus (one time dose): 0 mg, Starting on Thu12/30/24 at 1030, Hold the dose for analgesic side effects. Notify the provider to assess for uncontrolled pain or analgesic side effects. Do NOT give any additional opioids while on ASSISTANT HALL DIRECTOR unless provider authorized., Intravenous 0733 (Shift Total - Provider: Antolin Garcia RN)1551 (Stopped - Provider: Haley Perez RN) morphine ASSISTANT HALL DIRECTOR 1 mg/mL OPIOID TOLERANT Initial Set-up verified by: Naomi Grimes RN, Continuous Rate: 0 mg/hr, ASSISTANT HALL DIRECTOR Dose: 2 mg, ASSISTANT HALL DIRECTOR Lockout: 60 Minutes, One Hour Limit: 2 mg, Clinician Bolus (one time dose): 0 mg, Starting on Thu12/31/24 at 1430, Hold the dose for analgesic side effects. Notify the provider to assess for uncontrolled pain or analgesic side effects. Do NOT give any additional opioids while on ASSISTANT HALL DIRECTOR unless provider authorized., Intravenous, On hold since Thu01/01/2025 at 1124 until manually unheld 1552 ($New Syringe/Cartridge - Provider: Haley Perez RN)1943 (Shift Total - Provider: Haley Perez RN)2138 (Shift Total - Provider: Venkatesh Barreto RN) 0600 (Shift Total - Provider: Venkatesh Barreto RN)0644 (Shift Total - Provider: Venkatesh Barreto RN)1124 (Held by provider - Provider: Luis Ferrara MD - Reason: Other)1145 (Stopped - Provider: Haley Perez RN - Comment: 19.6mg waste with Saranya Harley RN 1157) 1642 (Unheld by provider - Provider: Orders Generic Provider) PRN Medication Order 12/31/2024 01/01/2025 01/02/2025 acetaminophen (TYLENOL) Suppository 650 mg(Linked Group 1) 650 mg, Rectal, EVERY 4 HOURS PRN, mild pain, other, and adjunct with moderate or severe pain or per patient request, Starting on Thu12/27/24 at 1106, Alternate with ibuprofen if ordered. Maximum acetaminophen dose from all sources = 75 mg/kg/day not to exceed 4 grams/day. 0615 (See Alternative - Provider: Antolin Garcia RN) acetaminophen (TYLENOL) tablet 650 mg(Linked Group 1) 650 mg, Oral, EVERY 4 HOURS PRN, mild pain, other, and adjunct with moderate or severe pain or per patient request, Starting on Thu12/27/24 at 1106, Alternate with ibuprofen if ordered. Maximum acetaminophen dose from all sources = 75 mg/kg/day not to exceed 4 grams/day. 0615 ($Given - Provider: Antolin Garcia RN) bisacodyl (DULCOLAX) suppository 10 mg 10 mg, Rectal, DAILY PRN, constipation, Starting on Thu12/29/24 at 1106, Hold for loose stools. calcium carbonate (TUMS) chewable tablet 1,000 mg 1,000 mg, Oral, 4 TIMES DAILY PRN, heartburn, Starting on Thu12/27/24 at 1015 dextrose 50 % injection 25-50 mL(Linked Group 2) 25-50 mL, Intravenous, EVERY 15 MIN PRN, low blood sugar, Administer over 1-5 Minutes, Starting on Thu12/27/24 at 1309, Use if have IV access, BG less than 70 mg/dL and meet dose criteria below: Dose if conscious and alert (or disorientated) and NPO = 25 mL Dose if unconscious / not alert = 50 mL Give first dose for initial blood glucose less than 70 mg/dL. If blood glucose at 15 minute recheck is less than or equal to 80 mg/dL continue to administer carbohydrate treatment every 15 minutes, as needed, based on blood glucose and assessment parameters until blood glucose level is above 80 mg/dL x 2 consecutive 15 minute checks. glucagon injection 1 mg(Linked Group 2) 1 mg, Subcutaneous, EVERY 15 MIN PRN, low blood sugar, May repeat x 1 only, Starting on Thu12/27/24 at 1309, May give SQ or IM. ONLY use glucagon IF patient has NO IV access AND is UNABLE to swallow AND blood glucose is LESS than or EQUAL to 50 mg/dL. glucose gel 15-30 g(Linked Group 2) 15-30 g, Oral, EVERY 15 MIN PRN, low blood sugar, Starting on Thu12/27/24 at 1309, Give first dose for initial blood glucose less than 70 mg/dL per the dosing instructions below. If blood glucose at 15 minute rechecks is still less than or equal to 80 mg/dL, continue to administer doses per blood glucose parameters every 15 minutes, as needed, until blood glucose level is at or above 80 mg/dL x 2 consecutive 15 minute checks. Dosing Instructions: ~If patient is conscious and able to swallow and NO enteral tube For initial BG 51-69mg/dL OR 15 minute recheck BG 51- 80 mg/dL - give 15 g For BG less than or equal to 50 mg/dL - give 30 g ~ If Enteral tube For initial BG 51-69mg/dL OR 15 minute recheck BG 51- 80 mg/dL - give apple juice 120 mL (4 oz or 15 g of CHO) via enteral tube For BG less than or equal to 50 mg/dL - Give apple juice 240 mL (8 oz or 30 g of CHO) via enteral tube ~Oral gel is preferable for conscious and able to swallow patient. ~IF gel unavailable or patient refuses may provide apple juice per Enteral tube dosing instructions. Document juice on I and O flowsheet. HYDROmorphone (DILAUDID) tablet 2 mg (CANCELED) 2 mg, Oral, EVERY 2 HOURS PRN, moderate pain, Starting on Thu01/01/25 at 1124 1204 ($Given - Provider: Haley Perez, RN) 0615 ($Given - Provider: Antolin Garcia, RN) labetalol (NORMODYNE/TRANDATE) injection 20 mg 20 mg, Intravenous, EVERY 6 HOURS PRN, high blood pressure, For SBP >190 or DBP >100, Starting on Thu12/30/24 at 0009 0423 ($Given - Provider: Antolin Garcia, RN) 0440 ($Given - Provider: Venkatesh Barreto RN) lidocaine (LMX4) cream Topical, EVERY 1 HOUR PRN, pain, with VAD insertion, Starting on Thu12/27/24 at 1015, Apply at least 30 minutes prior to VAD insertion in divided doses as needed for size of site for insertion. MAX Dose: 2.5 g ( of 5 g tube) Do NOT give if patient has a history of allergy to any local anesthetic or any rekha product. Do NOT use both lidocaine intradermal/subcutaneous injection and the lidocaine cream on the same site. lidocaine 1 % 0.1-1 mL 0.1-1 mL, Other, EVERY 1 HOUR PRN, mild pain with VAD insertion, Starting on Thu12/27/24 at 1015, MAX dose 1 mL subcutaneous OR intradermal along the side of the vein in divided doses as needed for VAD insertion. Do NOT give if patient has a history of allergy to any local anesthetic or any rekha product. Do NOT use both lidocaine intradermal/subcutaneous injection and the lidocaine cream on the same site. naloxone (NARCAN) injection 0.2 mg(Linked Group 3) 0.2 mg, Intravenous, EVERY 2 MIN PRN, opioid reversal, Starting on Thu12/27/24 at 1310, Administer intravenous route when available and notify provider when administered. For unintended sedation or respiratory depression if all of the below criteria are met: ~ respiratory rate LESS than or EQUAL to 8. ~SaO2 less than 92% and or/end-tidal CO2 is greater than 50. ~ the patient is receiving an opioid, has unintended sedations assessed as RASS (-3), and is currently not on mechanical ventilation. RASS scale moderate (-3) is movement or eye opening to voice but no eye contact. Patient Monitoring Once the patient has demonstrated a response to the naloxone, continue to monitor respiratory rate, depth, oxygen saturation and end-tidal CO2 (if available) every 15 minutes x 2, then every 30 minutes x 2, then every 1 hour x 1 after each naloxone dose. Consider transfer to ICU if patient respiratory parameters have not improved after 4 naloxone doses. naloxone (NARCAN) injection 0.2 mg(Linked Group 3) 0.2 mg, Intramuscular, EVERY 2 MIN PRN, opioid reversal, Starting on Thu12/27/24 at 1310, Administer intramuscular if an intravenous route is not available and notify provider when administered. For unintended sedation or respiratory depression if all of the below criteria are met: ~ respiratory rate LESS than or EQUAL to 8. ~SaO2 less than 92% and or/end-tidal CO2 is greater than 50. ~ the patient is receiving an opioid, has unintended sedations assessed as RASS (-3), and is currently not on mechanical ventilation. RASS scale moderate (-3) is movement or eye opening to voice but no eye contact. Patient Monitoring Once the patient has demonstrated a response to the naloxone, continue to monitor respiratory rate, depth, oxygen saturation and end-tidal CO2 (if available) every 15 minutes x 2, then every 30 minutes x 2, then every 1 hour x 1 after each naloxone dose. Consider transfer to ICU if patient respiratory parameters have not improved after 4 naloxone doses. naloxone (NARCAN) injection 0.4 mg(Linked Group 3) 0.4 mg, Intravenous, EVERY 2 MIN PRN, opioid reversal, Starting on Thu12/27/24 at 1310, Administer intravenous route when available and notify provider when administered. For unintended sedation or respiratory depression if all of the below criteria are met: ~ respiratory rate LESS than or EQUAL to 8. ~ SaO2 less than 92% and or/end-tidal CO2 is greater than 50. ~ the patient is receiving an opioid, has unintended sedation assessed as RASS (-4) or (-5) and patient is currently not on mechanical ventilation. RASS scale (-4) is deep sedation with no response to voice but movement or eye opening to physical stimulation. RASS scale (-5) is unarousable. Patient Monitoring Once the patient has demonstrated a response to the naloxone, continue to monitor respiratory rate, depth, oxygen saturation and end-tidal CO2 (if available) every 15 minutes x 2, then every 30 minutes x 2, then every 1 hour x 1 after each naloxone dose. Consider transfer to ICU if patient respiratory parameters have not improved after 4 naloxone doses. naloxone (NARCAN) injection 0.4 mg(Linked Group 3) 0.4 mg, Intramuscular, EVERY 2 MIN PRN, opioid reversal, Starting on Thu12/27/24 at 1310, Administer intramuscular if an intravenous route is not available and notify provider when administered. For unintended sedation or respiratory depression if all of the below criteria are met: ~ respiratory rate LESS than or EQUAL to 8. ~ SaO2 less than 92% and or/end-tidal CO2 is greater than 50. ~ the patient is receiving an opioid, has unintended sedation assessed as RASS (-4) or (-5) and patient is currently not on mechanical ventilation. RASS scale (-4) is deep sedation with no response to voice but movement or eye opening to physical stimulation. RASS scale (-5) is unarousable. Patient Monitoring Once the patient has demonstrated a response to the naloxone, continue to monitor respiratory rate, depth, oxygen saturation and end-tidal CO2 (if available) every 15 minutes x 2, then every 30 minutes x 2, then every 1 hour x 1 after each naloxone dose. Consider transfer to ICU if patient respiratory parameters have not improved after 4 naloxone doses. ondansetron (ZOFRAN ODT) ODT tab 4 mg(Linked Group 4) 4 mg, Oral, EVERY 6 HOURS PRN, nausea/vomiting - 1st line, Starting on Thu12/27/24 at 1106, This is Step 1 of nausea and vomiting management. If nausea not resolved in 15 minutes, go to Step 2 prochlorperazine (COMPAZINE). With dry hands, peel back foil backing and gently remove tablet. Do not push oral disintegrating tablet through foil backing. Administer immediately on tongue and oral disintegrating tablet dissolves in seconds, then swallow with saliva. Liquid not required. ondansetron (ZOFRAN) injection 4 mg(Linked Group 4) 4 mg, Intravenous, EVERY 6 HOURS PRN, nausea/vomiting - 1st line, Administer over 2-5 Minutes, Starting on Thu12/27/24 at 1106, Give IF patient unable to tolerate oral medication. This is Step 1 of nausea and vomiting management. If nausea not resolved in 15 minutes, go to Step 2 prochlorperazine (COMPAZINE). oxyCODONE (ROXICODONE) tablet 5 mg 5 mg, Oral, EVERY 4 HOURS PRN, severe pain, moderate pain, Starting on Thu01/02/25 at 1028 1148 ($Given - Provider: Umu Daley RN) polyethylene glycol (MIRALAX) Packet 17 g 17 g, Oral, 2 TIMES DAILY PRN, constipation, Starting on Thu12/27/24 at 1106, IF more than 1 constipation PRN medication is ordered, administer step-martinez as indicated, moving to the next step ONLY if prior step ineffective. Step 1: senna-docusate (SENOKOT-S; PERICOLACE) OR bisacodyl (DULCOLAX) EC tablet Step 2: polyethylene glycol (MIRALAX/GLYCOLAX) Step 3: bisacodyl (DULCOLAX) suppository Step 4: enema 1 Packet = 17 grams. Mix each gram with at least 1/2 ounce (15 mL) of water - 8 ounces for 17 g dose, 4 ounces for 8.5 g dose, 2 ounces for 4 g dose. Follow with the same volume of water. Hold for loose stools unless being administered as part of a bowel prep regimen or bowel clean out. prochlorperazine (COMPAZINE) injection 10 mg(Linked Group 5) 10 mg, Intravenous, EVERY 6 HOURS PRN, nausea/vomiting - 2nd line, Administer over 1-2 Minutes, Starting on Thu12/27/24 at 1106, IF patient unable to tolerate oral medication. This is Step 2 of nausea and vomiting management. Give if nausea not resolved 15 minutes after giving ondansetron (ZOFRAN). prochlorperazine (COMPAZINE) tablet 10 mg(Linked Group 5) 10 mg, Oral, EVERY 6 HOURS PRN, nausea/vomiting - 2nd line, Starting on Thu12/27/24 at 1106, This is Step 2 of nausea and vomiting management. Give if nausea not resolved 15 minutes after giving ondansetron (ZOFRAN). senna-docusate (SENOKOT-S/PERICOLACE) 8.6-50 MG per tablet 1 tablet(Linked Group 6) 1 tablet, Oral, 2 TIMES DAILY PRN, constipation, Starting on Thu12/27/24 at 1015, If no bowel movement in 24 hours, increase to 2 tablets by mouth. IF more than 1 constipation PRN medication is ordered, administer step-martinez as indicated, moving to the next step ONLY if prior step ineffective. Step 1: senna-docusate (SENOKOT-S; PERICOLACE) OR bisacodyl (DULCOLAX) EC tablet Step 2: polyethylene glycol (MIRALAX/GLYCOLAX) Step 3: bisacodyl (DULCOLAX) suppository Step 4: enema Hold for loose stools. senna-docusate (SENOKOT-S/PERICOLACE) 8.6-50 MG per tablet 2 tablet(Linked Group 6) 2 tablet, Oral, 2 TIMES DAILY PRN, constipation, Starting on Thu12/27/24 at 1015, IF more than 1 constipation PRN medication is ordered, administer step-martinez as indicated, moving to the next step ONLY if prior step ineffective. Step 1: senna-docusate (SENOKOT-S; PERICOLACE) OR bisacodyl (DULCOLAX) EC tablet Step 2: polyethylene glycol (MIRALAX/GLYCOLAX) Step 3: bisacodyl (DULCOLAX) suppository Step 4: enema Hold for loose stools. sodium chloride (PF) 0.9% PF flush 3 mL 3 mL, Intracatheter, EVERY 1 MIN PRN, line flush, other, to ensure patency or to lock dormant line, Starting on Thu12/27/24 at 1015 1953 ($Given - Provider: Venkatesh Barreto RN) 0446 ($Given - Provider: Venkatesh Barreto RN) Linked Groups Order Group 1: acetaminophen (TYLENOL) tablet 650 mgJump to med 650 mg, Oral, EVERY 4 HOURS PRN, mild pain, other, and adjunct with moderate or severe pain or per patient request, Starting on Thu12/27/24 at 1106, Alternate with ibuprofen if ordered. Maximum acetaminophen dose from all sources = 75 mg/kg/day not to exceed 4 grams/day. Or acetaminophen (TYLENOL) Suppository 650 mgJump to med 650 mg, Rectal, EVERY 4 HOURS PRN, mild pain, other, and adjunct with moderate or severe pain or per patient request, Starting on Thu12/27/24 at 1106, Alternate with ibuprofen if ordered. Maximum acetaminophen dose from all sources = 75 mg/kg/day not to exceed 4 grams/day. Group 2: glucose gel 15-30 gJump to med 15-30 g, Oral, EVERY 15 MIN PRN, low blood sugar, Starting on Thu12/27/24 at 1309, Give first dose for initial blood glucose less than 70 mg/dL per the dosing instructions below. If blood glucose at 15 minute rechecks is still less than or equal to 80 mg/dL, continue to administer doses per blood glucose parameters every 15 minutes, as needed, until blood glucose level is at or above 80 mg/dL x 2 consecutive 15 minute checks. Dosing Instructions: ~If patient is conscious and able to swallow and NO enteral tube For initial BG 51-69mg/dL OR 15 minute recheck BG 51- 80 mg/dL - give 15 g For BG less than or equal to 50 mg/dL - give 30 g ~ If Enteral tube For initial BG 51-69mg/dL OR 15 minute recheck BG 51- 80 mg/dL - give apple juice 120 mL (4 oz or 15 g of CHO) via enteral tube For BG less than or equal to 50 mg/dL - Give apple juice 240 mL (8 oz or 30 g of CHO) via enteral tube ~Oral gel is preferable for conscious and able to swallow patient. ~IF gel unavailable or patient refuses may provide apple juice per Enteral tube dosing instructions. Document juice on I and O flowsheet. Or dextrose 50 % injection 25-50 mLJump to med 25-50 mL, Intravenous, EVERY 15 MIN PRN, low blood sugar, Administer over 1-5 Minutes, Starting on Thu12/27/24 at 1309, Use if have IV access, BG less than 70 mg/dL and meet dose criteria below: Dose if conscious and alert (or disorientated) and NPO = 25 mL Dose if unconscious / not alert = 50 mL Give first dose for initial blood glucose less than 70 mg/dL. If blood glucose at 15 minute recheck is less than or equal to 80 mg/dL continue to administer carbohydrate treatment every 15 minutes, as needed, based on blood glucose and assessment parameters until blood glucose level is above 80 mg/dL x 2 consecutive 15 minute checks. Or glucagon injection 1 mgJump to med 1 mg, Subcutaneous, EVERY 15 MIN PRN, low blood sugar, May repeat x 1 only, Starting on Thu12/27/24 at 1309, May give SQ or IM. ONLY use glucagon IF patient has NO IV access AND is UNABLE to swallow AND blood glucose is LESS than or EQUAL to 50 mg/dL. Group 3: naloxone (NARCAN) injection 0.2 mgJump to med 0.2 mg, Intravenous, EVERY 2 MIN PRN, opioid reversal, Starting on Thu12/27/24 at 1310, Administer intravenous route when available and notify provider when administered. For unintended sedation or respiratory depression if all of the below criteria are met: ~ respiratory rate LESS than or EQUAL to 8. ~SaO2 less than 92% and or/end-tidal CO2 is greater than 50. ~ the patient is receiving an opioid, has unintended sedations assessed as RASS (-3), and is currently not on mechanical ventilation. RASS scale moderate (-3) is movement or eye opening to voice but no eye contact. Patient Monitoring Once the patient has demonstrated a response to the naloxone, continue to monitor respiratory rate, depth, oxygen saturation and end-tidal CO2 (if available) every 15 minutes x 2, then every 30 minutes x 2, then every 1 hour x 1 after each naloxone dose. Consider transfer to ICU if patient respiratory parameters have not improved after 4 naloxone doses. Or naloxone (NARCAN) injection 0.4 mgJump to med 0.4 mg, Intravenous, EVERY 2 MIN PRN, opioid reversal, Starting on Thu12/27/24 at 1310, Administer intravenous route when available and notify provider when administered. For unintended sedation or respiratory depression if all of the below criteria are met: ~ respiratory rate LESS than or EQUAL to 8. ~ SaO2 less than 92% and or/end-tidal CO2 is greater than 50. ~ the patient is receiving an opioid, has unintended sedation assessed as RASS (-4) or (-5) and patient is currently not on mechanical ventilation. RASS scale (-4) is deep sedation with no response to voice but movement or eye opening to physical stimulation. RASS scale (-5) is unarousable. Patient Monitoring Once the patient has demonstrated a response to the naloxone, continue to monitor respiratory rate, depth, oxygen saturation and end-tidal CO2 (if available) every 15 minutes x 2, then every 30 minutes x 2, then every 1 hour x 1 after each naloxone dose. Consider transfer to ICU if patient respiratory parameters have not improved after 4 naloxone doses. Or naloxone (NARCAN) injection 0.2 mgJump to med 0.2 mg, Intramuscular, EVERY 2 MIN PRN, opioid reversal, Starting on Thu12/27/24 at 1310, Administer intramuscular if an intravenous route is not available and notify provider when administered. For unintended sedation or respiratory depression if all of the below criteria are met: ~ respiratory rate LESS than or EQUAL to 8. ~SaO2 less than 92% and or/end-tidal CO2 is greater than 50. ~ the patient is receiving an opioid, has unintended sedations assessed as RASS (-3), and is currently not on mechanical ventilation. RASS scale moderate (-3) is movement or eye opening to voice but no eye contact. Patient Monitoring Once the patient has demonstrated a response to the naloxone, continue to monitor respiratory rate, depth, oxygen saturation and end-tidal CO2 (if available) every 15 minutes x 2, then every 30 minutes x 2, then every 1 hour x 1 after each naloxone dose. Consider transfer to ICU if patient respiratory parameters have not improved after 4 naloxone doses. Or naloxone (NARCAN) injection 0.4 mgJump to med 0.4 mg, Intramuscular, EVERY 2 MIN PRN, opioid reversal, Starting on Thu12/27/24 at 1310, Administer intramuscular if an intravenous route is not available and notify provider when administered. For unintended sedation or respiratory depression if all of the below criteria are met: ~ respiratory rate LESS than or EQUAL to 8. ~ SaO2 less than 92% and or/end-tidal CO2 is greater than 50. ~ the patient is receiving an opioid, has unintended sedation assessed as RASS (-4) or (-5) and patient is currently not on mechanical ventilation. RASS scale (-4) is deep sedation with no response to voice but movement or eye opening to physical stimulation. RASS scale (-5) is unarousable. Patient Monitoring Once the patient has demonstrated a response to the naloxone, continue to monitor respiratory rate, depth, oxygen saturation and end-tidal CO2 (if available) every 15 minutes x 2, then every 30 minutes x 2, then every 1 hour x 1 after each naloxone dose. Consider transfer to ICU if patient respiratory parameters have not improved after 4 naloxone doses. Group 4: ondansetron (ZOFRAN ODT) ODT tab 4 mgJump to med 4 mg, Oral, EVERY 6 HOURS PRN, nausea/vomiting - 1st line, Starting on Thu12/27/24 at 1106, This is Step 1 of nausea and vomiting management. If nausea not resolved in 15 minutes, go to Step 2 prochlorperazine (COMPAZINE). With dry hands, peel back foil backing and gently remove tablet. Do not push oral disintegrating tablet through foil backing. Administer immediately on tongue and oral disintegrating tablet dissolves in seconds, then swallow with saliva. Liquid not required. Or ondansetron (ZOFRAN) injection 4 mgJump to med 4 mg, Intravenous, EVERY 6 HOURS PRN, nausea/vomiting - 1st line, Administer over 2-5 Minutes, Starting on Thu12/27/24 at 1106, Give IF patient unable to tolerate oral medication. This is Step 1 of nausea and vomiting management. If nausea not resolved in 15 minutes, go to Step 2 prochlorperazine (COMPAZINE). Group 5: prochlorperazine (COMPAZINE) injection 10 mgJump to med 10 mg, Intravenous, EVERY 6 HOURS PRN, nausea/vomiting - 2nd line, Administer over 1-2 Minutes, Starting on Thu12/27/24 at 1106, IF patient unable to tolerate oral medication. This is Step 2 of nausea and vomiting management. Give if nausea not resolved 15 minutes after giving ondansetron (ZOFRAN). Or prochlorperazine (COMPAZINE) tablet 10 mgJump to med 10 mg, Oral, EVERY 6 HOURS PRN, nausea/vomiting - 2nd line, Starting on Thu12/27/24 at 1106, This is Step 2 of nausea and vomiting management. Give if nausea not resolved 15 minutes after giving ondansetron (ZOFRAN). Group 6: senna-docusate (SENOKOT-S/PERICOLACE) 8.6-50 MG per tablet 1 tabletJump to med 1 tablet, Oral, 2 TIMES DAILY PRN, constipation, Starting on Thu12/27/24 at 1015, If no bowel movement in 24 hours, increase to 2 tablets by mouth. IF more than 1 constipation PRN medication is ordered, administer step-martinez as indicated, moving to the next step ONLY if prior step ineffective. Step 1: senna-docusate (SENOKOT-S; PERICOLACE) OR bisacodyl (DULCOLAX) EC tablet Step 2: polyethylene glycol (MIRALAX/GLYCOLAX) Step 3: bisacodyl (DULCOLAX) suppository Step 4: enema Hold for loose stools. Or senna-docusate (SENOKOT-S/PERICOLACE) 8.6-50 MG per tablet 2 tabletJump to med 2 tablet, Oral, 2 TIMES DAILY PRN, constipation, Starting on Thu12/27/24 at 1015, IF more than 1 constipation PRN medication is ordered, administer step-martinez as indicated, moving to the next step ONLY if prior step ineffective. Step 1: senna-docusate (SENOKOT-S; PERICOLACE) OR bisacodyl (DULCOLAX) EC tablet Step 2: polyethylene glycol (MIRALAX/GLYCOLAX) Step 3: bisacodyl (DULCOLAX) suppository Step 4: enema Hold for loose stools. documented in this encounter Care Teams Qa Auditor Relationship Specialty Start Date End Date [facility], [facility] [id number] [place] [id number] PCP - General 07/16/23 documented as of this encounter
--- OUTSIDE RECORDS SUMMARY | 2025-01-25 15:00 | XMS_ITS | Encounter Summary ---
Author Organization Counts include 234 beds at the [facility] Address [address] [place] [address] Care Team Providers Care Instructor Nurse Name Role Phone Keyshawn Soto DO Primary Care Provider [phone] Reason for Referral * Consult/Transfer Care (Routine) - New Request Specialty Diagnoses / Procedures Referred By Martha dawson Referred To Contact Diagnoses Nephrolithiasis Keyshawn Soto DO [address] [place] [address] Phone: tel: fax: Referral ID Status Reason Start Date Expiration Date V isits Requested Visits Authorized [id number] New Request 01/25/2025 04/26/2026 1 1 Scheduling Instructions Your clinician has recommended an appointment with a [facility]. You can quickly make your appointment online at [email or web address]. You can also call [phone] for help scheduling your appointment. We suggest you call your health insurance company about your coverage and benefits for this appointment. Question Answer Appointment Urgency? Non-Urgent Reason for visit? admitted 12/28/24 with nephrolithiasis 6mm and 8mm stones, due for follow up * Consult/Transfer Care (Routine) - New Request Specialty Diagnoses / Procedures Referred By Martha dawson Referred To Contact Diagnoses Perforated ulcer (HRC) Keyshawn Soto DO [address] [place] [address] Phone: tel: fax: Referral ID Status Reason Start Date Expiration Date V isiandreina Requested Visits Authorized [id number] New Request 01/25/2025 04/26/2026 1 1 Scheduling Instructions Your clinician has recommended an appointment with Counts include 234 beds at the [facility] Gastroenterology. You can quickly make your appointment online at [email or web address]. You can also call [phone] for help scheduling your appointment. We suggest you call your health insurance company about your coverage and benefits for this appointment. Question Answer Appointment Urgency? Non-Urgent Reason for visit? admitted 12/28/24 with perforated gastric ulcer, due for follow up Reason for Visit * Reason Comments FOLLOW-UP,ER Encounter Details Date Type Department Care Team (Late st Contact Info) Description 01/25/2025 3:00 PM CDT Office Visit [facility] [address] [place], [place] [id number] Keyshawn Soto DO [address] [place] [address] Perforated ulcer (HRC) (Primary Dx); Type 2 diabetes mellitus without complication, without long-term current use of insulin (HRC); Essential hypertension (HRC); Nephrolithiasis Social History Tobacco Use Types Packs/Day Years Used Date Smoking Tobacco: Every Day Cigarettes Smokeless Tobacco: Former Chew Tobacco Cessation:Ready to Q uit: Not Asked; Counseling Given: Not Answered Comments:started 17 Alcohol Use Standard Drinks/Week Comments Yes 0 (1 standard drink = 0.6 oz pur e alcohol) 2-4 drinks per week PHQ-2 Answer Date Recorded PHQ-2 Score 0 01/25/2025 Sex and Gender Information Value Date Recorded Sex Assigned at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 Legal Sex Male 5:26 AM CDT Gender Identity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 Sexual Orientation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 [employer]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 Not on f ile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 documented as of this encounter Last Filed Vital Signs Vital Sign Reading Time Taken Comments Blood Pressure 117/77 01/25/2025 2:59 PM CDT Pulse 97 01/25/2025 2:59 PM CDT Temperature 37 C (98.6 F) 01/25/2025 2:59 PM CDT Respiratory Rate 12 01/25/2025 2:59 PM CDT Oxygen Saturation - - Inhaled Oxygen Concentration - - Weight 127 kg (280 lb) 01/25/2025 2:59 PM CDT Height - - Body Mass Index 38.78 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 [place] Date of Admission? December 27 - What were you seen for? Perforated gastric ulcer and left-sided nephrolithiasis Do you know what tests were performed while you were there? YES, labs and CT Did you receive any treatment(s) in the emergency room? YES IV Fluid and Medications Since you were seen in the emergency department, have your symptoms improved, worsened or stayed the same? Abdominal symptoms improved, kidney stone symptoms recurring Perforated ulcer -History of ulcer and GI bleed in 2023 and most recent perforation perforation occurred in the setting of chronic NSAID use -Managed conservatively during hospitalization: Protonix 40 mg b.i.d. for 90 days, Carafate 4 timesdaily for 30 days -Pain has now resolved -Unclear GI follow up plan Nephrolithiasis -Noted on CT scan during admission -6 and 8 mm stones in left distal ureter -Started on Flomax, recommended to have outpatient CT scan and follow up with Urology 3-4 weeks from time of discharge -Per patient,plan for CT scan on or after 01/26, planning to set it up this week -Started having recurrent flank pain 3-4 days ago -Pain is intermittent, occurs randomly -Daytime symptoms relatively manageable, however notes nighttime symptoms have been disrupting his sleep -Discharged with 12 tablets of oxycodone, required TYPE SOLDERING MACHINE TENDER pump with morphine during admission -Requesting additional pain medication T2DM -Known history of type 2 diabetes -HGB A1c 8.2% during admission -Treated with SSI during admission and discharge with metformin -Patient has previously been on metformin and had severe GI side effects so had not been taking it -Upon retrial the medication at discharge had return of said side effects -Has had side effects even with the extended release version of metformin -Declines to continue metformin at this time -Was told to inquire about GLP 1 HTN -Previously on amlodipine 5 mg -Severe hypertension during admission, amlodipine increased to 10 mg -BP currently well controlled, no side effects from dose adjustment No melena, blood in stool , vomiting, hematuria I have personally reviewed the patient's allergies, medications, and past medical history in detailand updated the patient record as necessary. Observed: BP 117/77 (BP Location: Right Arm, BP Cuff Size: Large) Pulse 97 Temp 98.6 ??F (37 ??C) (Tympanic) Resp 12 Wt 280 lb (127 kg) BMI 38.78 kg/m?? Physical Exam: General Appearance: alert, well appearing, and in no apparent distress Heart: regular rate and rhythm and no murmurs, gallops or rubs Lungs: clear to auscultation and no wheezes, rales or rhonchi Musculoskeletal: + CVA tenderness Assessment/Plan: Perforated ulcer (HRC) - Gastroenterology Consult-Adults - Complete Blood Count-No Diff; Future Symptoms improving. Continue PPI and Carafate. Patient admitted at [facility] but wishes to continue care with Counts include 234 beds at the [facility] per insurance. GI referral placed today. Unclear if patient willneed repeat endoscopy based on discharge summary. Nephrolithiasis - BMP; Future - Urology Consult-Adults - oxyCODONE-acetaminophen (PERCOCET) 5-325 MG tablet; Take 1-2 Tablets by mouth every 8 hours as needed for Pain. Six and 8 mm stones noted on CT. Continue Flomax. Has had significant increase in pain in the last 3-4 days. Discussed very limited supply of opioid pain medication given patient unable to take NSAIDs in the setting of recent ulcer. Plan for repeat CT scan this week. Counts include 234 beds at the [facility] urology referralplaced today. Type 2 diabetes mellitus without complication, without long-term current use of insulin (HRC) - empagliflozin (JARDIANCE) 10 MG tablet; Take 1 Tablet (10 mg) by mouth daily. Previously on metformin but unable to tolerate it due to GI side effects. GLP 1 can potentially increase the risk of kidney stones, so do not recommend starting GLP 1 at this time. Empagliflozin may decrease the the risk of kidney stones so plan to start empagliflozin at this time. Discussed 10 mg starting dose of plan to increase to 25 mg in the next 1-2 months. Due for repeat A1c in 2 months. Essential hypertension (HRC) BP well controlled on current regimen. Continue amlodipine. Discussed that empagliflozin can potentially decrease blood pressure, so recommend monitoring blood pressures at home and following up if blood pressure is decreasing to significantly. Can return back to amlodipine 5 mg in that case. Please see orders and patient instructions Keyshawn Soto DO documented in this encounter Plan of Treatment Scheduled Referrals Name Type Priority Associated Diagnoses Orde r Schedule Gastroenterology Consult-Adults Referral Routine Perforated ulcer (HRC) Ordered: 01/25/2025 Urology Consult-Adults Referral Routine Nephrolithiasis Ordered: 01/25/2025 documented as of this encounter Results * (ABNORMAL) Complete Blood Count-No Diff (01/25/2025 3:53 PM CDT) WBC 14.5(H) 3.5 - 10.5 x10(9)/L 01/25/2025 3:55 PM CDT [facility] RBC 4.43 4.32 - 5.72 x10(12)/L 01/25/2025 3:55 PM CDT [facility] Hemoglobin 13.6 13.5 - 17.5 g/dL 01/25/2025 3:55 PM CDT [facility] HCT 41.4 38.8 - 50.0 % 01/25/2025 3:55 PM CDT [facility] MCV 93.5 80.0 - 100.0 fL 01/25/2025 3:55 PM CDT [facility] MCH 30.7 27.6 - 33.3 pg 01/25/2025 3:55 PM CDT [facility] MCHC 32.9 31.5 - 35.2 g/dL 01/25/2025 3:55 PM CDT [facility] RDW 13.5 11.9 - 15.5 % 01/25/2025 3:55 PM CDT [facility] Platelets 274 150 - 450 x10(9)/L 01/25/2025 3:55 PM CDT [facility] Blood Venipuncture / Unknown 01/25/2025 3:53 PM CDT 01/25/2025 3:53 PM CDT us Keyshawn Soto DO LAB_1 Final Result [facility] [address] [place] [address] * (ABNORMAL) BMP (01/25/2025 3:53 PM CDT) [facility] Sodium 139 136 - 145 mmol/L 01/25/2025 7:36 PM CDT [facility] Potassium 4.5 3.5 - 5.1 mmol/L 01/25/2025 7:36 PM CDT [facility] Chloride 102 98 - 109 mmol/L 01/25/2025 7:36 PM T [facility] CO2 26 20 - 29 mmol/L 01/25/2025 7:36 PM T [facility] Anion Gap 11 6 - 16 mmol/L 01/25/2025 7:36 PM T [facility] Calcium 9.9 8.4 - 10.4 mg/dL 01/25/2025 7:36 PM T [facility] BUN 16 7 - 26 mg/dL 01/25/2025 7:36 PM T [facility] Creatinine 0.93 0.73 - 1.18 mg/dL 01/25/2025 7:36 PM T [facility] Glucose 155(H) 70 - 100 mg/dL 01/25/2025 7:36 PM T [facility] Comment:The given reference range is for the fasting state. Non-fasting reference range for glucose is 70 - 180 mg/dL. GFR, Estimated >60 >60 mL/min/1. 73m2 01/25/2025 7:36 PM T [facility] Hours Fasting 3.0 8 - 12 Hours 01/25/2025 7:36 PM CDT [facility] Blood Venipuncture / Unknown 01/25/2025 3:53 PM CDT 01/25/2025 3:53 PM CDT Keyshawn Soto DO LAB_1 Final Result Performing Organization Address City/State/[facility] Co de Phone Number [facility] [address] [address], [facility] [address] [place] [address] documented in this encounter Visit Diagnoses Diagnosis Perforated ulcer (HRC)- Primary Chronic or unspecified peptic ulcer, unspecified site, with perforation, without mention of obstruction Type 2 diabetes mellitus without complication, without long-term current use of insulin (HRC) Essential hypertension (HRC) Unspecified essential hypertension Nephrolithiasis Calculus of kidney documented in this encounter Care Teams Instructor Nurse Relationship Specialty Start Date End Date Keyshawn Soto DO [address] [address] PCP - General Family Practice 01/19/25 documented as of this encounter
--- OUTSIDE RECORDS SUMMARY | 2025-01-25 15:50 | XMS_ITS | Encounter Summary ---
Author Organization [facility] Address [address], [place] [address] Care Team Providers Care Strip Mill Operator Name Role Phone Keyshawn Soto DO Primary Care Provider Encounter Details Date Type Department Care Team (Late st Contact Info) Description 01/25/2025 3:50 PM CDT Lab Visit [facility] [address] [place] [address] Nephrolithiasis; Perforated ulcer (HRC) Social History Tobacco Use Types Packs/Day Years Used Date Smoking Tobacco: Every Day Cigarettes Smokeless Tobacco: Former Chew Comments:started 17 Alcohol Use Standard Drinks/Week Comments [...] on file documented as of this encounter Plan of Treatment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 documented as of this encounter Procedures Procedure Name Priority Date/Time Associated Diagnosis Comments BASIC METABOLIC PANEL Routine 01/25/2025 3:53 PM CDT Nephrolithiasis COMPLETE BLOOD COUNT-NO DIFF Routine 01/25/2025 3:53 PM CDT Perforated ulcer (HRC) documented in this encounter Results * (ABNORMAL) Complete Blood Count-No Diff (01/25/2025 3:53 PM CDT) WBC 14.5(H) 3.5 - 10.5 x10(9)/L 01/25/2025 3:55 PM CDT [facility] RBC 4.43 4.32 - 5.72 x10(12)/L 01/25/2025 3:55 PM CDT [facility] Hemoglobin 13.6 13.5 - 17.5 g/dL 01/25/2025 3:55 PM CDT [facility] HCT 41.4 38.8 - 50.0 % 01/25/2025 3:55 PM CDT [facility] MCV 93.5 80.0 - 100.0 fL 01/25/2025 3:55 PM CDT [facility] MCH 30.7 27.6 - 33.3 pg 01/25/2025 3:55 PM CDT [facility] MCHC 32.9 31.5 - 35.2 g/dL 01/25/2025 3:55 PM CDT [facility] RDW 13.5 11.9 - 15.5 % 01/25/2025 3:55 PM CDT [facility] Platelets 274 150 - 450 x10(9)/L 01/25/2025 3:55 PM CDT [facility] Blood Venipuncture / Unknown 01/25/2025 3:53 PM CDT 01/25/2025 3:53 PM CDT us Keyshawn Soto DO LAB_1 Final Result [facility] [address] [place] [address], [facility] * (ABNORMAL) BMP (01/25/2025 3:53 PM CDT) Pathologist [facility] Sodium 139 136 - 145 mmol/L 01/25/2025 7:[address] [facility] Potassium 4.5 3.5 - 5.1 mmol/L 01/25/2025 7:[address] [facility] Chloride 102 98 - 109 mmol/L 01/25/2025 7:36 PM T [facility] CO2 26 20 - 29 mmol/L 01/25/2025 7:36 PM T [facility] Anion Gap 11 6 - 16 mmol/L 01/25/2025 7:36 PM T [facility] Calcium 9.9 8.4 - 10.4 mg/dL 01/25/2025 7:36 PM T [facility] BUN 16 7 - 26 mg/dL 01/25/2025 7:36 PM T [facility] Creatinine 0.93 0.73 - 1.18 mg/dL 01/25/2025 7:36 PM [facility] Glucose 155(H) 70 - 100 mg/dL 01/25/2025 7:36 PM [facility] Comment:The given reference range is for the fasting state. Non-fasting reference range for glucose is 70 - 180 mg/dL. GFR, Estimated >60 >60 mL/min/1. 73m2 01/25/2025 7:36 PM [facility] Hours Fasting 3.0 8 - 12 Hours 01/25/2025 7:36 PM T [facility] Blood Venipuncture / Unknown 01/25/2025 3:53 PM CDT 01/25/2025 3:53 PM CDT us Keyshawn Soto DO LAB_1 Final Result [facility] [id number] [place] [address] LAB [address] [place] [address] documented in this encounter Visit Diagnoses Diagnosis Nephrolithiasis Calculus of kidney Perforated ulcer (HRC) Chronic or unspecified peptic ulcer, unspecified site, with perforation, without mention of obstruction documented in this encounter Care Teams Strip Mill Operator Relationship Specialty Start Date End Date Keyshawn Soto DO [address] [place] [address] PCP - General Family Practice 01/19/25 documented as of this encounter
[2025-02-06 12:34] VITALS: BP 147/92; PULSE 96; RESP 20; TEMP 36; O2SAT 96; BMI 38.5
[2025-02-06 12:45] LABS: Appearance Urine Clear (Clear)
--- NOTE | 2025-02-06 14:24 | CRLHL7_ITS ---
For Patients: As a result of the Century Cures Act, medical imaging exams and procedure reports are released immediately into your electronic medical record. You may view this report before your referring provider. If you have questions, please contact your health care provider. INDICATION: Flank pain. TECHNIQUE: CT abdomen and pelvis without contrast. COMPARISON: None. FINDINGS: Mild bibasilar subpleural consolidations, likely atelectasis/scarring. The liver is normal in size. Hypoattenuating mass is seen along the anteromedial aspect segment 5/6 of the liver abutting surgical clips with inflammatory fat stranding. This measures approximately 5 centimeters (61). There is otherwise no gross evidence of liver lesion. The gallbladder is absent. No biliary ductal dilatation. The spleen is unremarkable. The pancreas is unremarkable without significant inflammatory fat stranding. The adrenal glands are normal. Extensive bilateral nonobstructing renal stones are noted. Evidence of 2 stones within the mid to distal left ureter measuring 9 millimeters in aggregate. No left hydronephrosis is seen. Urinary bladder is distended without suspicious thickening stranding. There is inflammatory fat stranding about the hepatic flexure colon which appears to be reactive. Submucosal fat deposition is seen, a chronic finding. The appendix appears to be absent. There is thickening of the proximal and mid duodenum with surrounding inflammatory fat stranding (70). More inferiorly there is a track of low-density soft tissue extending anterior and cephalad (71-90). No simple fluid collection or free air is seen. The mid to distal duodenum is decompressed. The small bowel is unremarkable. No bowel obstruction. Indeterminate periportal lymphadenopathy. For reference is a 17 millimeter lymph node (54). There is stranding along the right peritoneal reflection. Small amount of fluid is seen. No organized drainable fluid collection. No free air. No CV ascites. Prostate is unremarkable. Small fat containing umbilical hernias. The aorta is not aneurysmal. Bone windows demonstrate no suspicious lytic or sclerotic lesion. No acute fracture. IMPRESSION: 1. Irregular thickening and stranding of the proximal duodenum. This may represent inflammation or malignancy. Indeterminate linear tract of soft tissue is seen extending inferiorly to the mesentery which may represent a tract from prior perforation. No gross free air or organized fluid collection is seen. Recommend correlation with the patient`s previous imaging. Recommend upper endoscopy for further evaluation. 2. Irregular masslike region of hypoattenuation along the periphery of the right [place] liver associated with the abnormal duodenum. Primary differential considerations are necrotic lymph node, necrotic solid liver mass or complex cystic lesion to include complex abscess. Additionally there is indeterminate periportal lymphadenopathy. A dedicated abdominal MRI with IV contrast is recommended for further evaluation. 3. Evidence of 2 stones within the mid to distal left ureter measuring 9 millimeters in aggregate. No left hydronephrosis. 4. Extensive bilateral nonobstructing renal calculi. Case discussed with the ordering provider at approximally 3:50 p.m. on 02/06/2025. Please note that all CT scans at this facility use dose modulation, iterative reconstruction, and/or weight-based dosing when appropriate to reduce radiation dose to as low as reasonably achievable. Dictated by Karlos Robertson MD @ 02/06/2025 3:53:46 PM (Electronically Signed)
--- NOTE | 2025-02-06 14:47 | ED_ITS ---
HPI - General Adult General Chief complaint: Flank Pain <Rebeca Grimes MD - Last Filed: 02/15/25 10:59> Stated complaint: thinks has kidney stones <Rebeca Grimes MD - Last Filed: 02/15/25 10:59> Time Seen by Provider: 02/06/25 14:12 <Rebeca Grimes MD - Last Filed: 02/15/25 10:59> Source: patient <Rebeca Grimes MD - Last Filed: 02/15/25 10:59> Mode of arrival: ambulatory <Rebeca Grimes MD - Last Filed: 02/15/25 10:59> Limitations: no limitations <Rebeca Grimes MD - Last Filed: 02/15/25 10:59> History of Present Illness HPI narrative: 44-year-old male presenting today with flank pain. Patient states that he has history of kidney stones this feels very similar to that. He states that he has had pain on both sides the last couple of weeks however today, the pain has been significant on the right side. He has some epigastric discomfort that comes and goes any also has some right-sided abdominal discomfort that he describes as a soreness that comes and goes but it is the right flank that is been really bothering him. He denies dysuria, increased urinary frequency or urgency. No fevers or chills. He does feel nauseated on off, no vomiting. No diarrhea or constipation. Patient was placed on Flomax about a month ago due to recurrent stones. Patient also states that he end of December he had a duodenal perforated ulcer that was treated conservatively, did not require surgical intervention. For the most part, he has felt fine since then. He has changed his diet and started eating healthier. <Rebeca Grimes MD - Last Filed: 02/15/25 10:59> Related Data Home medications: Home Medications ?Medication ?Instructions ?Recorded ?Confirmed amlodipine 5 mg tablet 5 mg PO BID 02/06/25 5 empagliflozin 10 mg tablet 10 mg PO DAILY 02/06/25 (Jardiance) pantoprazole 40 mg tablet,delayed 40 mg PO BID 5 02/06/25 release sucralfate 1 gram tablet 1 g PO QID 07/28/25 07/28/25 tamsulosin 0.4 mg capsule PO 02/06/25 <Rebeca Grimes MD - Last Filed: 02/15/25 10:59> Allergies/adverse reactions: Allergies Allergy/AdvReac Type Severity Reaction Status Date / Time No Known Drug Allergies Allergy Verified 02/06/25 12:35 <Rebeca Grimes MD - Last Filed: 02/15/25 10:59> Review of Systems Status of ROS: Reports: 10 or more systems reviewed and unremarkable except as noted in History and below <Rebeca Grimes MD - Last Filed: 02/15/25 10:59> [facility] Social History: Social History Smoking Status: Current every day smoker What tobacco products do you use: cigarettes Smoking packs per day: 0.25 Smoking cigarettes per day: 5.0 How often do you have a drink containing alcohol: monthly or less AUDIT-C Alcohol total score: 1 Non-prescribed substance use: denies use service: No <Rebeca Grimes MD - Last Filed: 02/15/25 10:59> Exam Narrative: Exam Narrative: Obese, well-developed patient in no acute distress. Alert and oriented. Answers questions appropriately. Mood and affect are appropriate. Thoughts are goal oriented and rational. No tangential or magical thinking noted. Patient speaks in full sentences without needing to catch his breath. Patient does not appear ill or toxic. HEENT: Normocephalic atraumatic. Pupils are equally round reactive to light. Extraocular muscles are intact. Conjunctivae are moist without any icterus noted. Moist mucous membranes. Cardiovascular: Heart is regular rate and rhythm S1 and S2 are present without any murmurs. Lungs: Clear to auscultation bilaterally no wheezes rhonchi or rales are appreciated. Abdomen: Soft and nontender nondistended with normal bowel sounds. Mild right CVA tenderness. Extremities: Bilateral lower extremities are without edema. Skin: Well perfused. <Rebeca Grimes MD - Last Filed: 02/15/25 10:59> Const: Vital Signs, click to edit/add: Vital Signs - 24 hr 02/06/25 12:34 02/06/25 19:59 02/06/25 21:43 Temperature 96.8 F L 98.5 F 98.3 F Pulse Rate [Pulse Oximeter] 96 84 77 Respiratory Rate 20 22 20 Blood Pressure [Ri ght Upper Arm] 147/92 H 119/87 122/79 Pulse Oximetry 96 92 92 Oxygen Delivery Me thod Room Air Room Air Room Air <Rebeca Grimes MD - Last Filed: 02/15/25 10:59> Vital Signs, click to edit/add: Vital Signs - 24 hr 02/06/25 12:34 02/06/25 19:59 02/06/25 21:43 Temperature 96.8 F L 98.5 F 98.3 F Pulse Rate [Pulse Oximeter] 96 84 77 Respiratory Rate 20 22 20 Blood Pressure [Ri ght Upper Arm] 147/92 H 119/87 122/79 Pulse Oximetry 96 92 92 Oxygen Delivery Me thod Room Air Room Air Room Air <Maninder Mann MD - Last Filed: 02/06/25 22:31> Course Course ED Course: IV established and patient is started on 1 L of normal saline, IV Zofran and Toradol. Blood work shows a white cell count of 16.5, hemoglobin 12.7. Chemistries are unremarkable He glucose 201. CRP elevated at 8.2. UA shows 2+ protein, 1+ glucose, 1+ blood, 5-10 RBCs and 5-[address] without contrast was done looking for stones and shows a a mass along the anteromedial aspect of the liver, extensive bilateral nonobstructing renal stones, evidence of 2 stones within the mid to distal left ureter measuring 9 mm in aggregate without hydronephrosis. He also has inflammatory fat stranding about the hepatic flexure of the colon, thickening of the proximal duodenum with surrounding inflammatory fat stranding and indeterminate periportal lymphadenopathy. Discussed with Dr. Whyte who recommended MRI of the abdomen and probable GI consult with potential transfer. MRI ordered, care transferred to oncoming physician. <Rebeca Grimes MD - Last Filed: 02/15/25 10:59> Reevaluation(s) Reevaluation #1: Patient signed out to Dr. Mann at shift change-approximately 17 30 44-year-old male with a history of kidney stones and history of hospitalization at [facility] a couple of months ago for perforated duodenal ulcer (apparently treated non operatively) presented to the ER today with flank pain has been prominently in the right flank today but has been intermittently in both flanks for the past couple of weeks. Workup in the ER today shows a white count of 16, hemoglobin of 12, platelet count 326. CRP is 8.2. Urinalysis shows 5-10 WBC and 5-10 RBC per high-power field. 1+ blood. 1+ bilirubin. Sodium 135, potassium 4.1, chloride 101, bicarb 20, BUN 11, creatinine 0.7, glucose [address] abdomen/pelvis show Irregular thickening and stranding of the proximal duodenum. May represent inflammation or malignancy. Indeterminate linear track to soft tissue inferiorly to the mesentery which may represent a tract from prior perforation. No gross free air or organized fluid collection. Recommended endoscopy. It also shows an irregular masslike region of hypoattenuation along the periphery of the right [place] liver associated with the abnormal duodenum. Differential includes necrotic lymph node, necrotic solid liver mass or complex cystic lesion to include abscess. Also indeterminate periportal lymphadenopathy. Recommended MRI with IV contrast CT scan also shows 2 stones within the left mid/ distal ureter a 9 mm in aggregate. Without hydronephrosis. Also extensive bilateral nonobstructing stones. Dr. Carbajal has ordered the MRI, results pending. Recheck-patient eager to go and sending in the veliz requesting discharge. MRI is not back. Dr. Mann met with patient and asked stay little bit longer. He was very agreeable. Results of MRI came back. Preliminary Report: Comparison: CT abdomen and pelvis 02/06/2025 Preliminary Impression: Multiple rim enhancing cystic lesions within the caudate lobe extending into the romy hepatis along the proximal duodenum, the largest of which measures approximately 4.5 x 4.0 cm. There is prominent inflammatory stranding within the right upper quadrant just inferior to the duodenum. About the lesions. Additionally, there is ill-defined enhancement adjacent to the hepatic IVC (). Constellation of findings suspicious for an infectious/inflammatory process with possible multiple abscesses. Possibly sequela of a perforated peptic ulcer or pancreatitis with pseudocyst formation. Reviewed with Dr. Whyte, surgery who recommended transfer to a facility with GI capabilities to do an endoscopic drainage. She thinks these abscesses would be best drain by facility with GI capability rather than IR since he would likely have to go through the liver to get through to the abscesses percutaneously. Patient is started on IV Zosyn. Also IV Protonix Discussed this with the patient. He agrees to come back in the hospital. He understands this need for specialist consultation not available here in [place]. Patient requests transfer to [facility] (only [place], not [facility]) even though he had his recent hospitalist at [facility]. I did contact the [facility] transfer line and they do not have any capacity at [facility]. We contacted the [facility] transfer line to discuss for transfer back to [facility] for this patient. He was accepted for admission by Dr. العلي (discussed with his resident who accepted on behalf of Dr. Somers son). Patient wanted to transfer back to [facility] by private car. At this point he is hemodynamically stable. He has already received IV PPI and a dose of IV Zosyn. He understands the risks and benefits of transferring by private car versus transferring by EMS. I think he has medical decision-making capacity. He will transfer by private car. He knows the way did [facility]. <Maninder Mann MD - Last Filed: 02/06/25 22:31> Vital Signs Vital signs: Initial Vital Signs Temperature 96.8 F L 02/06/25 12:34 Temperature Source Temporal Artery Scan 02/06/25 12:34 Pulse Rate 96 02/06/25 12:34 Respiratory Rate 20 02/06/25 12:34 Blood Pressure 147/92 H 02/06/25 12:34 Blood Pressure Mean 110 H 02/06/25 12:34 Blood Pressure Position Sitting 02/06/25 12:34 Pulse Oximetry 96 02/06/25 12:34 Oxygen Delivery Method Room Air 02/06/25 12:34 Vital Signs Temperature 96.8 F L 02/06/25 12:34 Pulse Rate 96 02/06/25 12:34 Respiratory Rate 20 02/06/25 12:34 Blood Pressure 147/92 H 02/06/25 12:34 Pulse Oximetry 96 02/06/25 12:34 Oxygen Delivery Method Room Air 02/06/25 12:34 Temperature 98.3 F 02/06/25 21:43 Pulse Rate 77 02/06/25 21:43 Respiratory Rate 20 02/06/25 21:43 Blood Pressure 122/79 02/06/25 21:43 Pulse Oximetry 92 02/06/25 21:43 Oxygen Delivery Method Room Air 02/06/25 21:43 <Rebeca Grimes MD - Last Filed: 02/15/25 10:59> Initial Vital Signs Temperature 96.8 F L 02/06/25 12:34 Temperature Source Temporal Artery Scan 02/06/25 12:34 Pulse Rate 96 02/06/25 12:34 Respiratory Rate 20 02/06/25 12:34 Blood Pressure 147/92 H 02/06/25 12:34 Blood Pressure Mean 110 H 02/06/25 12:34 Blood Pressure Position Sitting 02/06/25 12:34 Pulse Oximetry 96 02/06/25 12:34 Oxygen Delivery Method Room Air 02/06/25 12:34 Vital Signs Temperature 96.8 F L 02/06/25 12:34 Pulse Rate 96 02/06/25 12:34 Respiratory Rate 20 02/06/25 12:34 Blood Pressure 147/92 H 02/06/25 12:34 Pulse Oximetry 96 02/06/25 12:34 Oxygen Delivery Method Room Air 02/06/25 12:34 Temperature 98.3 F 02/06/25 21:43 Pulse Rate 77 02/06/25 21:43 Respiratory Rate 20 02/06/25 21:43 Blood Pressure 122/79 02/06/25 21:43 Pulse Oximetry 92 02/06/25 21:43 Oxygen Delivery Method Room Air 02/06/25 21:43 <Maninder Mann MD - Last Filed: 02/06/25 22:31> Medications Administered Medications: Discontinued Medications Generic Name Dose Route Start Last Admin Trade Name Freq PRN Reason Stop Dose Admin Sodium Chloride 1,000 mls @ 1,000 mls/hr 02/06/25 14:30 02/06/25 16:42 0.9 % Sodium Chloride 1000 Ml IV 02/06/25 15:29 Infused .Q1H JEFF Infusion Piperacillin Sod/Tazobactam 100 mls @ 200 mls/hr 02/06/25 19:45 02/06/25 20:32 Sod 4.5 gm/ Sodium Chloride IVPB Infused Q6H JEFF Infusion Ketorolac Tromethamine 30 mg 02/06/25 14:27 02/06/25 15:07 Ketorolac 30 Mg/Ml Inj IVP 02/06/25 14:28 30 mg ONCE ONE Administration Ondansetron HCl 4 mg 02/06/25 14:27 02/06/25 15:07 Ondansetron 2 Mg/Ml Inj IVP 02/06/25 14:28 4 mg ONCE ONE Administration Pantoprazole Sodium 80 mg 02/06/25 19:47 02/06/25 20:31 Pantoprazole Sodium 40 Mg Inj IVP 02/06/25 19:48 80 mg ONCE ONE Administration <Rebeca Grimes MD - Last Filed: 02/15/25 10:59> Discontinued Medications Generic Name Dose Route Start Last Admin Trade Name Freq PRN Reason Stop Dose Admin Sodium Chloride 1,000 mls @ 1,000 mls/hr 02/06/25 14:30 02/06/25 16:42 0.9 % Sodium Chloride 1000 Ml IV 02/06/25 15:29 Infused .Q1H JEFF Infusion Piperacillin Sod/Tazobactam 100 mls @ 200 mls/hr 02/06/25 19:45 02/06/25 20:32 Sod 4.5 gm/ Sodium Chloride IVPB Infused Q6H JEFF Infusion Ketorolac Tromethamine 30 mg 02/06/25 14:27 02/06/25 15:07 Ketorolac 30 Mg/Ml Inj IVP 02/06/25 14:28 30 mg ONCE ONE Administration Ondansetron HCl 4 mg 02/06/25 14:27 02/06/25 15:07 Ondansetron 2 Mg/Ml Inj IVP 02/06/25 14:28 4 mg ONCE ONE Administration Pantoprazole Sodium 80 mg 02/06/25 19:47 02/06/25 20:31 Pantoprazole Sodium 40 Mg Inj IVP 02/06/25 19:48 80 mg ONCE ONE Administration <Maninder Mann MD - Last Filed: 02/06/25 22:31> Medical Decision Making Lab Data Labs: Lab Results 02/06/25 02/06/25 Range/Units 12:40 15:00 WBC 16.54 H (4.50-11.00) K/uL RBC 4.19 L (4.30-5.90) m/uL Hgb 12.7 L (13.5-17.5) gm/dL Hct 38.0 (37.0-53.0) % MCV 91 (80-100) fL MCH 30 (26-34) pg MCHC 33 (32-36) gm/dL RDW Coeff of Alonzo 13.3 (11.5-15.5) % Plt Count 326 (140-440) K/uL Neut % (Auto) 75.1 H (42.0-72.0) % Lymph % (Auto) 13.2 L (20-44) % [place] % (Auto) 8.3 (0.0-11.0) % Eos % (Auto) 2.5 (0.0-7.0) % Baso % (Auto) 0.4 (0.0-3.0) % Neut # (Auto) 12.40 H (1.7-7.0) K/uL Lymph # (Auto) 2.20 (0.90-2.90) K/uL [place] # (Auto) 1.40 H (0.00-0.90) K/UL Eos # (Auto) 0.40 (0.00-0.50) K/uL Baso # (Auto) 0.10 (0.00-0.30) K/uL Abs Immat Gran (auto) 0.10 (0.00-0.30) K/uL Imm/Tot Granulo (auto) 0.5 % Sodium 135 (135-149) mmol/L Potassium 4.1 (3.6-5.1) mmol/L Chloride 101 (96-114) mmol/L Carbon Dioxide 24 (20-32) mmol/L Anion Gap 10 (7-15) mEq/L BUN 11 (5-24) mg/dL Creatinine 0.7 (0.5-1.5) mg/dL Estimated Creat Clear 141.93 Estimated GFR 116 ml/min Glucose 201 H (60-115) mg/dL Lactate 1.6 (0.5-1.9) mmol/L Calcium 9.6 (8.4-10.6) mg/dL C-Reactive Protein 8.2 H (0.5-1.0) mg/dL Urine Color Dark yellow (Yellow) Urine Appearance Clear (Clear) Urine pH 5.5 (5.0-8.5) Ur Specific [place] 1.020 (1.000-1.030) Urine Protein 2+ A (Negative) Urine Glucose (UA) 1+ A (Negative) Urine Ketones Negative (Negative) Urine Blood 1+ A (Negative) Urine Nitrite Negative (Negative) Urine Bilirubin 1+ A (Negative) Urine Urobilinogen 0.2 (0.2-1.0) Ur Leukocyte Esterase Negative (Negative) Urine RBC 5-10 A (0-2) Urine WBC 5-10 A (0-5) Ur Squamous Epith Cells Few (None-Few) Urine Bacteria Few A (None) Urine Mucus Few A (None) <Rebeca Grimes MD - Last Filed: 02/15/25 10:59> Lab Results 02/06/25 02/06/25 Range/Units 12:40 15:00 WBC 16.54 H (4.50-11.00) K/uL RBC 4.19 L (4.30-5.90) m/uL Hgb 12.7 L (13.5-17.5) gm/dL Hct 38.0 (37.0-53.0) % MCV 91 (80-100) fL MCH 30 (26-34) pg MCHC 33 (32-36) gm/dL RDW Coeff of Alonzo 13.3 (11.5-15.5) % Plt Count 326 (140-440) K/uL Neut % (Auto) 75.1 H (42.0-72.0) % Lymph % (Auto) 13.2 L (20-44) % [place] % (Auto) 8.3 (0.0-11.0) % Eos % (Auto) 2.5 (0.0-7.0) % Baso % (Auto) 0.4 (0.0-3.0) % Neut # (Auto) 12.40 H (1.7-7.0) K/uL Lymph # (Auto) 2.20 (0.90-2.90) K/uL [place] # (Auto) 1.40 H (0.00-0.90) K/UL Eos # (Auto) 0.40 (0.00-0.50) K/uL Baso # (Auto) 0.10 (0.00-0.30) K/uL Abs Immat Gran (auto) 0.10 (0.00-0.30) K/uL Imm/Tot Granulo (auto) 0.5 % Sodium 135 (135-149) mmol/L Potassium 4.1 (3.6-5.1) mmol/L Chloride 101 (96-114) mmol/L Carbon Dioxide 24 (20-32) mmol/L Anion Gap 10 (7-15) mEq/L BUN 11 (5-24) mg/dL Creatinine 0.7 (0.5-1.5) mg/dL Estimated Creat Clear 141.93 Estimated GFR 116 ml/min Glucose 201 H (60-115) mg/dL Lactate 1.6 (0.5-1.9) mmol/L Calcium 9.6 (8.4-10.6) mg/dL C-Reactive Protein 8.2 H (0.5-1.0) mg/dL Urine Color Dark yellow (Yellow) Urine Appearance Clear (Clear) Urine pH 5.5 (5.0-8.5) Ur Specific [place] 1.020 (1.000-1.030) Urine Protein 2+ A (Negative) Urine Glucose (UA) 1+ A (Negative) Urine Ketones Negative (Negative) Urine Blood 1+ A (Negative) Urine Nitrite Negative (Negative) Urine Bilirubin 1+ A (Negative) Urine Urobilinogen 0.2 (0.2-1.0) Ur Leukocyte Esterase Negative (Negative) Urine RBC 5-10 A (0-2) Urine WBC 5-10 A (0-5) Ur Squamous Epith Cells Few (None-Few) Urine Bacteria Few A (None) Urine Mucus Few A (None) <Maninder Mann MD - Last Filed: 02/06/25 22:31> Imaging Data CT scan - abdomen: Attestation: I have reviewed the pertinent imaging results. <Rebeca Grimes MD - Last Filed: 02/15/25 10:59> Radiologist's impression: TECHNIQUE: CT abdomen and pelvis without contrast. COMPARISON: None. FINDINGS: Mild bibasilar subpleural consolidations, likely atelectasis/scarring. The liver is normal in size. Hypoattenuating mass is seen along the anteromedial aspect segment 5/6 of the liver abutting surgical clips with inflammatory fat stranding. This measures approximately 5 centimeters (61). There is otherwise no gross evidence of liver lesion. The gallbladder is absent. No biliary ductal dilatation. The spleen is unremarkable. The pancreas is unremarkable without significant inflammatory fat stranding. The adrenal glands are normal. Extensive bilateral nonobstructing renal stones are noted. Evidence of 2 stones within the mid to distal left ureter measuring 9 millimeters in aggregate. No left hydronephrosis is seen. Urinary bladder is distended without suspicious thickening stranding. There is inflammatory fat stranding about the hepatic flexure colon which appears to be reactive. Submucosal fat deposition is seen, a chronic finding. The appendix appears to be absent. There is thickening of the proximal and mid duodenum with surrounding inflammatory fat stranding (70). More inferiorly there is a track of low-density soft tissue extending anterior and cephalad (71-90). No simple fluid collection or free air is seen. The mid to distal duodenum is decompressed. The small bowel is unremarkable. No bowel obstruction. Indeterminate periportal lymphadenopathy. For reference is a 17 millimeter lymph node (54). There is stranding along the right peritoneal reflection. Small amount of fluid is seen. No organized drainable fluid collection. No free air. No CV ascites. Prostate is unremarkable. Small fat containing umbilical hernias. The aorta is not aneurysmal. Bone windows demonstrate no suspicious lytic or sclerotic lesion. No acute fracture. IMPRESSION: 1. Irregular thickening and stranding of the proximal duodenum. This may represent inflammation or malignancy. Indeterminate linear tract of soft tissue is seen extending inferiorly to the mesentery which may represent a tract from prior perforation. No gross free air or organized fluid collection is seen. Recommend correlation with the patient`s previous imaging. Recommend upper endoscopy for further evaluation. 2. Irregular masslike region of hypoattenuation along the periphery of the right [place] liver associated with the abnormal duodenum. Primary differential considerations are necrotic lymph node, necrotic solid liver mass or complex cystic lesion to include complex abscess. Additionally there is indeterminate periportal lymphadenopathy. A dedicated abdominal MRI with IV contrast is recommended for further evaluation. 3. Evidence of 2 stones within the mid to distal left ureter measuring 9 millimeters in aggregate. No left hydronephrosis. 4. Extensive bilateral nonobstructing renal calculi. <Rebeca Grimes MD - Last Filed: 02/15/25 10:59> Discharge Plan Discharge Prescriptions: No Action sucralfate 1 gram tablet 1 g PO QID amlodipine 5 mg tablet 5 mg PO BID tamsulosin 0.4 mg capsule PO pantoprazole 40 mg tablet,delayed release (DR/EC) 40 mg PO BID Jardiance 10 mg tablet 10 mg PO DAILY <Rebeca Grimes MD - Last Filed: 02/15/25 10:59> Follow Up/Referrals: Karely Vázquez MD [Primary Care Provider, Emergency Medicine] <Rebeca Grimes MD - Last Filed: 02/15/25 10:59>
--- OUTSIDE RECORDS SUMMARY | 2025-02-06 14:58 | XMS_ITS | Encounter Summary ---
Author Organization [facility] Address [address] [address] Care Team Providers Care Fire Manager Name Role Phone Keyshawn Soto DO Primary Care Provider Encounter Details Date Type Department Care Team (Late st Contact Info) Description 01/27/2025 E-Visit Gastroenterology Procedures at [address] [address] Mychart, [place] [address] Social History Tobacco Use Types Packs/Day Years [...] on file documented as of this encounter Visit Diagnoses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documented in this encounter Care Teams Fire Manager Relationship Specialty Start Date End Date Keyshawn Soto DO [address] [place] [address] PCP - General Family Practice 01/19/25 documented as of this encounter
--- OUTSIDE RECORDS SUMMARY | 2025-02-06 14:58 | XMS_ITS | Clinical Summary ---
Author Organization [email or web address] [facility] Address [address] [place] [address] Care Team Providers Care Editor Greeting Card Name Role Phone Isabela Sharp NP Primary Care Provider [phone] Allergies Active Allergy Reactions Criticality Noted Date Comments Cefaclor Hives,Rash 10/14/2017 Lisinopril Cough 10/14/2017 Sulfa (Sulfonamide Antibiotics) Rash 10/11 Medications CrutchIndication s:Pain and swelling of lower leg, left 1 Device 0 12/22/19 15 Active ciprofloxacin HCl (CIPRO) 500 mg tabletIndication s:Pyuria Take 1 tablet by mouth 2 times daily for 10 days. 14 tablet 01/29/20 17 Active amLODIPine (NORVASC) 5 mg tablet Take 5 mg by mouth with dinner. Active ibuprofen (ADVIL) 200 mg tablet Take 200-400 mg by mouth 4 times daily if needed. Active oxyCODONE-acetam inophen, 5-325 mg, (PERCOCET) 5-325 mg per tabletIndication s:Acute appendicitis, unspecified acute appendicitis type Take 1-2 tablets by mouth every 4 hours if needed for Pain Max acetaminophen dose: 4000mg in 24 hrs. 20 tablet 10/15/19 18 Active cyclobenzaprine (FLEXERIL) 10 mg tabletIndication s:Chest pain, unspecified type Take 1 tablet by mouth 3 times daily. 15 tablet 08/02/19 19 Active Active Problems Problem Noted Date Diagnosed Date Cervical radiculopathy 08/14/2010 Chest pain, unspecified 08/14/2010 Smoking 08/14/2010 Pulmonary nodule 08/14/2010 Immunizations Immunization Administration Dates Next Due Influenza, IIV3 (Age >=3 years) 05/11/2008 Pneumococcal Poly,23-Valent (Pneumovax) 08/15/19 11 Family History Medical History Relation Name Comments Hypertension Other Relation Name Status Comments Other Social History Tobacco Use Types Packs/Day Years Used Date Smoking Tobacco: Every Day Cigarettes 1 13 Smokeless Tobacco: Never Tobacco Cessation:Ready to Q uit: No; Counseling Given: Yes Alcohol Use Standard Drinks/Week Comments Yes 0 (1 standard drink = 0.6 oz pur e alcohol) Sex and Gender Information Value Date Recorded Sex Assigned at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 Legal Sex Male 6:57 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 Gender Identity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 Sexual Orientation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 Obstetrics History Last Filed Vital Signs Vital Sign Reading Time Taken Comments Blood Pressure 155/100 08/02/2018 2:19 PM BUSINESS 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 Pulse 94 08/02/2018 2:19 PM BUSINESS 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 Temperature 37.1 C (98.8 F) 08/02/2018 2:19 PM BUSINESS 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 Respiratory Rate 18 08/02/2018 2:19 PM BUSINESS 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 Oxygen Saturation 95% 08/02/2018 2:19 PM BUSINESS 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 Inhaled Oxygen Concentration - - Weight 122.5 kg (270 lb) 08/02/2018 3:03 PM BUSINESS 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 Height 182.9 cm (6') 08/02/2018 3:03 PM BUSINESS 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 Body Mass Index 36.62 08/02/2018 3:03 PM BUSINESS 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 Plan of Treatment Health Maintenance Due Date Last Done Comments Tetanus booster 1990 Depression screening for age 12+ 1991 HIV for age 15-65 1994 Hepatitis C screening for ag e 18-79 1997 Hepatitis B series for 19+ ( 1 of 3 - 19+ 3-dose series) 1998 BMI (ht and wt on same day) for age 18+ 01/28/2018 01/28/2017, 03/26/2016 COVID-19 vaccine series (2023- season) 2024 Colonoscopy through age 75 2024 Lipids for age 45-75 2024 Influenza Vaccine (#1) 2025 05/11/2008 Pneumococcal series for age 6-49 Aged Out 08/15/2010 No longer eligible b ased on patient's age to complete this topic Insurance [employer] Advance Directives * Full Code (Latest Code Status on File) Date Activated Date Inactivated Comments 06/27/2015 9:07 AM 06/27/2015 5:09 PM * Full Code Date Activated Date Inactivated Comments 08/14/2010 11:34 PM 08/15/2010 5:55 PM Care Teams Editor Greeting Card Relationship Specialty Start Date End Date Isabela Sharp NP [address] [facility] [place] [id number] PCP - General 10/08/17
--- OUTSIDE RECORDS SUMMARY | 2025-02-06 14:59 | XMS_ITS | Encounter Summary ---
Author Organization [place] Address [facility] 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 Gender Identity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 Sexual Orientation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 Occupation Industry Job Start Date Job End Date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 documented as of this encounter Progress Notes * Kayla Persaud - 01/24/2025 2:07 PM CDT Records Requested 01/24/25 Facility [facility] Fax: Outcome Request sent to [facility] for last 5 years of records 01/24 records sent to [facility] documented in this encounter Plan of Treatment Upcoming Encounters Date Type Department Care Team (Late st Contact Info) Description 02/13/2025 2:00 PM CDT Ancillary Procedure [facility] [address] [place] [phone] Tabitha Garcia, PAOfeC [address] [facility] [address] [place] [address] documented as of this encounter Visit Diagnoses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documented in this encounter Care Teams Epitaxial Reactor Technician Relationship Specialty Start Date End Date [facility], [facility] [address] [place] [address] PCP - General 07/16/23 documented as of this encounter
--- OUTSIDE RECORDS SUMMARY | 2025-02-06 14:59 | XMS_ITS | Clinical Summary ---
Author Organization [facility] Address [address] [place] [address] Care Team Providers Care Sap Bi Developer Name Role Phone Keyshawn Soto DO Primary Care Provider [phone] Source Comments You are receiving this document as you are listed as the primary care provider,follow-up provider, or the patient has been referred to you for consultation.This is in compliance with the Medicare andMedicaid EHR Incentive Program,which states Providers who transition their patient to another setting of careor provider of care or refers their patient to another provider of care shouldprovide summary care record for each transition of care or referral. [facility] Document Preparation Allergies Active Allergy Reactions Criticality Noted Date Comments Cephalosporins Hives High 03/14/2014 nausea Lisinopril Cough 10/14/2017 Sulfa Antibiotics Hives High 03/14/2014 Sulfamethoxazole-Trimethoprim Nausea And Vomiting 07/25/2009 Medications ALBUterol sulfate HFA 108 (90 BASE) MCG/ACT inhaler Inhale 2 Puffs every 4 hours as needed. 1 Inhaler 0 08/25/19 17 Active omeprazole (PRILOSEC) 20 MG capsule Take 1 Cap by mouth daily. Take 1 hour before a meal. 90 Cap 3 10/04/19 18 Active amLODIPine (NORVASC) 10 MG tabletIndication s:Essential hypertension (HRC) TAKE 1 TABLET BY MOUTH EVERY DAY 90 Tablet 09/25/19 22 Active nicotine (NICODERM CQ) 14 MG/24HR patch 1 Patch daily. Active pantoprazole DR (PROTONIX) 40 MG tablet Take 1 Tablet (40 mg) by mouth. 01/03/20 25 Active sucralfate (CARAFATE) 1 g tablet Take 1 Tablet (1 g) by mouth. 01/03/20 Active tamsulosin 0.4 MG CAPS capsule Take 1 Capsule (0.4 mg) by mouth. 01/03/20 25 Active empagliflozin (JARDIANCE) 10 MG tabletIndication s:Type 2 diabetes mellitus without complication, without long-term current use of insulin (HRC) Take 1 Tablet (10 mg) by mouth daily. 90 Tablet 01/26/20 25 026 Active oxyCODONE-acetam inophen (PERCOCET) 5-325 MG tabletIndication s:Nephrolithiasi s Take 1-2 Tablets by mouth every 8 hours as needed for Pain. 10 Tablet 01/26/20 25 Active amLODIPine (NORVASC) 5 MG tablet Take 1 Tablet (5 mg) by mouth daily. 025 Discontinued hydroCHLOROthiaz matthieu (ORETIC) 25 MG tabletIndication s:Essential hypertension (HRC) TAKE 1 TABLET BY MOUTH EVERY DAY 90 Tablet 06/03/20 21 025 Discontinued metFORMIN (GLUCOPHAGE) 500 MG tabletIndication s:Diabetes mellitus type II (HRC) TAKE 1 TABLET BY MOUTH TWO TIMES A DAY WITH MEALS. 180 Tablet 09/25/19 22 025 Discontinued Active Problems Problem Noted Date Diagnosed Date Upper GI bleed 07/16/2023 Morbid obesity 09/15/2022 Diabetes mellitus, type II 05/25/2020 Severe obstructive sleep apnea 12/03/2017 Overview (12/03/2017): Setting: AutoBilevel/ResMed, IPAPmax 25 cmH20, EPAP 12 cmH20, Delta 4 cmH20 Supplied by: [facility] PSG done: 11-16-17 AHI 122 RDI 123 Lowest O2 Sat: 46% Chris Aguilar/PATRICIA 12-01-17 Essential hypertension 08/25/2016 Tobacco use disorder 06/05/2014 Lung mass 08/14/2010 Encounters Date Type Department Care Team Description 01/27/2025 E-Visit Gastroenterology Procedures at [address] [address] Mychart, Generic Provider 01/25/2025 3:50 PM CDT Lab Visit [facility] [address] [place] [address] Nephrolithiasis; Perforated ulcer (HRC) 01/25/2025 3:00 PM CDT Office Visit [facility] [address] [place] [address] Keyshawn Soto, Perforated ulcer (HRC) (Primary Dx); Type 2 diabetes mellitus without complication, without long-term current use of insulin (HRC); Essential hypertension (HRC); Nephrolithiasis 01/16/2025 Telephone [facility] [address] [place] [address] Martha Olsen RN, BSN FOLLOW-UP,HOSPITAL from Last 3 Months Immunizations Immunization Administration Dates Next Due DT Ped 09/22/1995 Flu Vac (3+ yrs) 05/11/2008 PPSV23 (Pneumovax) 08/15/2010 Tdap 07/08/2016 Family History Medical History Relation Name Comments Retinal Detachment Father Cancer, Breast Mother Hypertension Mother Cancer, Other Maternal Grandmother Cataract Maternal Grandmother DVT/PE Maternal Grandmother later i n life Cancer, Other Paternal Grandfather Coronary Artery Disease Paternal Grandfather Asthma Sister COPD Negative Family History Cancer, Colon Negative Family History Cancer, Ovary Negative Family History Cancer, Prostate Negative Family History Celiac Disease Negative Family History Cerebrovascular Disease Negative Family History Cystic Fibrosis Negative Family History Deafness Negative Family History Dementia Negative Family History Depression Negative Family History Diabetes Negative Family History Diabetes, Type II Negative Family History Domestic Violence Negative Family History Eczema Negative Family History Emphysema Negative Family History Enuresis Negative Family History Genetic Disorder Negative Family History Glaucoma Negative Family History Hyperlipidemia Negative Family History Inflammatory Bowel Disease Negative Family History Kidney Disorder Negative Family History Liver Disease Negative Family History Macular Degeneration Negative Family History Migraines Negative Family History Neural Tube Defect Negative Family History Obesity Negative Family History Osteoporosis Negative Family History Other Negative Family History Schizophrenia Negative Family History Scoliosis Negative Family History Seizure Disorder Negative Family History Sickle Cell Anemia Negative Family History Stroke Negative Family History Suicide Negative Family History Thromboembolic Disease Negative Family History Thyroid Disorder Negative Family History Tuberculosis Negative Family History Vesicoureteral Reflux Negative Family History Relation Name Status Comments Father Alive Mother Alive Maternal Grandmother Paternal Grandfather Sister Alive Social History Tobacco Use Types Packs/Day Years [...] Not on f ile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 Last Filed Vital Signs Vital Sign Reading Time Taken Comments Blood Pressure 117/77 01/25/2025 2:59 PM CDT Pulse 97 01/25/2025 2:59 PM CDT Temperature 37 C (98.6 F) 01/25/2025 2:59 PM CDT Respiratory Rate 12 01/25/2025 2:59 PM CDT Oxygen Saturation 94% 05/31/2020 8:30 PM WELFARE INVESTIGATOR Inhaled Oxygen Concentration - - Weight 127 kg (280 lb) 01/25/2025 2:59 PM CDT Height 181 cm (5' 11.25) 05/23/2020 11:36 AM CS T Body Mass Index 38.78 05/23/2020 11:36 AM WELFARE INVESTIGATOR Plan of Treatment Health Maintenance Due Date Last Done Comments Colon Cancer Screening Plan Due 1979 Diabetes: Eye Exam 1979 Diabetes: Foot Exam 1979 Diabetes: Urine Microalbumin 1979 Hep C Screening (Preventive Services) 1979 HIV Screening (Preventive Services) 1995 HepB Vaccine (1) 1998 Pneumococcal Vaccine (2 of 2 - PCV) 08/15/2011 08/15/2010 Adult Preventive Visit 07/08/2017 07/08/2016 Diabetes: Lipid Panel 07/08/2021 07/08/2016 COVID-19 Vaccine ( - season) 2024 Influenza Vaccine (#1) 2025 05/11/2008 Diabetes: HGBA1C 06/29/2025 12/28/2024, , 05/23/2020, Additional history exists Diabetes: Creatinine 01/25/2026 01/25/2025, 05/31/2020, 11/17/2019, Additional history exists DTaP/Tdap/Td Vaccine (3 - Tdap) 07/08/2026 07/08/2016, 09/22/1995 Zoster/Shingles Vaccine (1 of 2) 2029 Cholesterol Discontinued 07/08/2016 HPV Vaccine Aged Out No longer eligi ble based on patient's age to complete this topic HepA Vaccine Aged Out No longer eligi ble based on patient's age to complete this topic Hib Vaccine Aged Out No longer eligi ble based on patient's age to complete this topic IPV (Polio) Vaccine Aged Out No longe r eligible based on patient's age to complete this topic MCV4 Vaccine Aged Out No longer eligi ble based on patient's age to complete this topic Meningococcal B Vaccine Aged Out No l onger eligible based on patient's age to complete this topic Procedures Procedure Name Priority Date/Time Associated Diagnosis Comments COMPLETE BLOOD COUNT-NO DIFF Routine 01/25/2025 3:53 PM CDT Perforated ulcer (HRC) BASIC METABOLIC PANEL Routine 01/25/2025 3:53 PM CDT Nephrolithiasis HGB A1C Routine 05/23/2020 12:19 PM WELFARE INVESTIGATOR Numbness and tingling of both feet LIPID PANEL & DIRECT LDL (IF NEEDED) Routine 07/08/2016 12:14 PM WELFARE INVESTIGATOR Screening cholesterol level from Last 3 Months or Most Recently Relevant to Health Maintenance Results * (ABNORMAL) BMP (01/25/2025 3:53 PM CDT) Sodium 139 136 - 145 mmol/L 01/25/2025 7:36 PM CDT [facility] Potassium 4.5 3.5 - 5.1 mmol/L 01/25/2025 7:36 PM CDT [facility] Chloride 102 98 - 109 mmol/L 01/25/2025 7:36 [facility] CO2 26 20 - 29 mmol/L 01/25/2025 7:36 PM T [facility] Anion Gap 11 6 - 16 mmol/L 01/25/2025 7:36 PM CDT [facility] Calcium 9.9 8.4 - 10.4 mg/dL 01/25/2025 7:36 PM CDT [facility] BUN 16 7 - 26 mg/dL 01/25/2025 7:36 PM CDT [facility] Creatinine 0.93 0.73 - 1.18 mg/dL 01/25/2025 7:36 PM CDT [facility] Glucose 155(H) 70 - 100 mg/dL 01/25/2025 7:36 PM T [facility] Comment:The given reference range is for the fasting state. Non-fasting reference range for glucose is 70 - 180 mg/dL. GFR, Estimated >60 >60 mL/min/1. 73m2 01/25/2025 7:36 PM T [facility] Hours Fasting 3.0 8 - 12 Hours 01/25/2025 7:36 PM T [facility] Blood Venipuncture / Unknown 01/25/2025 3:53 PM CDT 01/25/2025 3:53 PM CDT us Keyshawn Soto DO LAB_1 Final Result [facility] [address] [address] [address] [place] [address] * (ABNORMAL) Complete Blood Count-No Diff (01/25/2025 3:53 PM CDT) [facility] Signature WBC 14.5(H) 3.5 - 10.5 x10(9)/L 01/25/2025 3:55 PM CDT [facility] RBC 4.43 4.32 - 5.72 x10(12)/L 01/25/2025 3:55 PM CDT [facility] Hemoglobin 13.6 13.5 - 17.5 g/dL 01/25/2025 3:55 PM CDT [facility] HCT 41.4 38.8 - 50.0 % 01/25/2025 3:55 PM CDT [facility] MCV 93.5 80.0 - 100.0 fL 01/25/2025 3:55 PM CDT [facility] MCH 30.7 27.6 - 33.3 pg 01/25/2025 3:55 PM CDT [facility] MCHC 32.9 31.5 - 35.2 g/dL 01/25/2025 3:55 PM CDT [facility] RDW 13.5 11.9 - 15.5 % 01/25/2025 3:55 PM CDT [facility] Platelets 274 150 - 450 x10(9)/L 01/25/2025 3:55 PM CDT [facility] Blood Venipuncture / Unknown 01/25/2025 3:53 PM CDT 01/25/2025 3:53 PM CDT us Keyshawn Soto DO LAB_1 Final Result Performing Organization Address City/[facility]/ZIP Co de Phone Number [facility] [address] [place] [address] * (ABNORMAL) Lipid Panel - LDLD If Trig High (07/08/2016 12:14 PM WELFARE INVESTIGATOR) Pathologist [facility] Cholesterol 231(H) 0 - 199 mg/dL PN SOFT Triglycerides 128 4 - 149 mg/dL PN SOFT HDL Cholesterol 49 >39 mg/dL PN SOFT Cholesterol/HDL Ratio Screen 4.7 PN SOFT LDL Calculated 156(H) 19 - 130 mg/dL PN SOFT Hours Fasting 2.0 PN SOFT 07/08/2016 12:1 4 PM WELFARE INVESTIGATOR 07/08/2016 2:30 PM WELFARE INVESTIGATOR Narrative PN SOFT - 07/08/2016 3:11 PM WELFARE INVESTIGATOR Performed at [facility] ([facility] [address] [place] [address] CLIA number [id number] us Harjinder Blue DEHYDROGENATION CONVERTER HELPER, TALENT ACQUISITION ASSISTANT LAB_1 Final Result PN SOFT [address] [place] [address] from Last 3 Months or Most Recently Relevant to Health Maintenance Insurance FULLY INSURED FULLY INSURED Care Teams Sap Bi Developer Relationship Specialty Start Date End Date Keyshawn Stoo DO [address] [place] [address] PCP - General Family Practice 01/19/25
--- OUTSIDE RECORDS SUMMARY | 2025-02-06 14:59 | XMS_ITS | Encounter Summary ---
Author Organization [place] Address [facility] [place] [address] Care Team Providers Care Skirt Panel Assembler Name Role Phone [place], [facility] Primary Care Provider Encounter Details Date Type Department Care Team (Latest Contact Info) Description 12/27/2024 Travel Social History Tobacco Use Types Packs/Day Years [...] Answer Date Recorded Do you have housing? 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 Gender Identity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 Sexual Orientation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 Occupation Industry Job Start Date Job End Date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 documented as of this encounter Plan of Treatment Upcoming Encounters Date Type Department Care Team (Late st Contact Info) Description 02/13/2025 2:00 PM CDT Ancillary Procedure [address] [phone] Tabitha Garcia, PAOfeC [address] [place] [address] documented as of this encounter Visit Diagnoses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documented in this encounter Care Teams Skirt Panel Assembler Relationship Specialty Start Date End Date [facility], [facility] [id number] [place] [address] PCP - General 07/16/23 documented as of this encounter
--- OUTSIDE RECORDS SUMMARY | 2025-02-06 14:59 | XMS_ITS | Clinical Summary ---
Author Organization [place] Address [facility] [place] [address] Care Team Providers Care Import/Export Analyst Name Role Phone [facility], [facility] Primary Care Provider Allergies Active Allergy Reactions Criticality Noted Date Comments Cefaclor Rash 07/25/2009 Cephalosporins Hives High 03/14/2014 nausea Lisinopril Cough 10/14/2017 Bactrim Nausea and Vomiting 07/25/2009 Sulfa Antibiotics Hives High 03/14/2014 Medications acetaminophen (TYLENOL) 500 MG tablet Take 500 mg by mouth every 4 hours as needed for mild pain Active oxyCODONE (ROXICODONE) 5 MG tabletIndications :Acute gastric ulcer with perforation (H),Ureteral colic,Ureteral stone Take 1 tablet (5 mg) by mouth every 4 hours as needed for severe pain or moderate pain. 12 tablet 5 Active pantoprazole (PROTONIX) 40 MG EC tabletIndications :Acute gastric ulcer with perforation (H) Take 1 tablet (40 mg) by mouth 2 times daily (before meals). 90 tablet 1 5 Active tamsulosin (FLOMAX) 0.4 MG capsuleIndication s:Ureteral colic,Ureteral stone Take 1 capsule (0.4 mg) by mouth at bedtime. 90 capsule 2 5 Active sucralfate (CARAFATE) 1 GM tabletIndications :Acute gastric ulcer with perforation (H) Take 1 tablet (1 g) by mouth 4 times daily. 120 tablet 5 Active nicotine (NICODERM CQ) 14 MG/24HR 24 hr patchIndications: Tobacco use disorder Place 1 patch over 24 hours onto the skin every 24 hours. 10 patch 1 5 Active amLODIPine (NORVASC) 5 MG tabletIndications :Benign essential hypertension Take 2 tablets (10 mg) by mouth daily. 90 tablet 1 5 Active metFORMIN (GLUCOPHAGE XR) 500 MG 24 hr tabletIndications :Type 2 diabetes mellitus treated without insulin (H) Take 1 tablet (500 mg) by mouth daily (with dinner). 90 tablet 1 5 Active Active Problems Problem Noted Date Diagnosed Date Acute gastric ulcer with perforation 12/27/2024 Ureteral colic 12/27/2024 Right sided abdominal pain 12/27/2024 Upper abdominal pain 12/27/2024 Hypertension, unspecified type 12/27/2024 Upper GI bleed 07/16/2023 Nausea vomiting and diarrhea 07/16/2023 Morbid obesity 09/15/2022 Diabetes mellitus, type II 05/25/2020 Severe obstructive sleep apnea 12/03/2017 Overview (09/15/2022): Setting: AutoBilevel/ResMed, IPAPmax 25 cmH20, EPAP 12 cmH20, Delta 4 cmH20 Supplied by: [facility] PSG done: 11-16-17 AHI 122 RDI 123 Lowest O2 Sat: 46% Chris Aguilar/PATRICIA 12-01-17 Essential hypertension 08/25/2016 Tobacco use disorder 06/05/2014 Cervical radiculopathy 08/14/2010 Chest pain, unspecified 08/14/2010 Lung mass 08/14/2010 Nicotine dependence, unspecified, uncomplicated 08/14/2010 CARDIOVASCULAR SCREENING; LDL GOAL LESS THAN 160 05/12/2010 Encounters Date Type Department Care Team Description 01/24/2025 Documentation Only [facility] [address] [place] [address] Kayla Persaud 01/17/2025 Telephone [facility] [address] [place] [address] Umu Johnson RN Follow Up 12/27/2024 7:30 AM CDT - 01/02/2025 2:30 PM CDT Hospital Encounter [place] [phone] Karely Garnica MD Ronneberg, Timothy, MD Hougas, James E, MD Acute gastric ulcer with perforation (H) (Primary Dx); Upper abdominal pain; Right sided abdominal pain; Ureteral colic; Hypertension, unspecified type; Ureteral stone; Benign essential hypertension; Tobacco use disorder; Type 2 diabetes mellitus treated without insulin (H) Discharge Disposition: Home or Self Care 12/27/2024 Travel from Last 3 Months Family History Medical History Relation Comments Family History Negative Other Relation Status Comments Other Social History Tobacco Use Types Packs/Day Years Used Date Smoking Tobacco: Every Day Cigarettes 0.8 10 Smokeless Tobacco: Former Tobacco Cessation:Ready to Q uit: Not Asked; Counseling Given: Not Answered Alcohol Use Standard Drinks/Week Comments Yes 1.7 [...] in an abandoned building, in an overnight halfway, or couch-surfing.) Yes 12/28/2024 Are you worried [...] on file Legal Sex Male 3:20 AM 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[employer] Gender Identity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 Sexual Orientation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 Occupation Industry Job Start Date Job End Date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 Last Filed Vital Signs [...] Mass Index 41.21 12/27/2024 7:28 AM CDT Plan of Treatment Upcoming Encounters Date Type Department Care Team (Late st Contact Info) Description 02/13/2025 2:00 PM CDT Ancillary Procedure [facility] [address] [place] [phone] Tabitha Garcia, PA-C [address] [place], [place] [id number] Health Maintenance Due Date Last Done Comments ADVANCE CARE PLANNING 1979 ANNUAL REVIEW OF HM ORDERS 1979 CT COLONOGRAPHY 1979 DIABETIC FOOT EXAM 1979 EYE EXAM 1979 FLEX SIG 1979 LIPID 1979 MICROALBUMIN 1979 sDNA (Cologuard) 1979 COLONOSCOPY 1989 HIV SCREENING 1994 HEPATITIS C SCREENING 1997 HEPATITIS B VACCINE (1 of 3 - 19+ 3-dose series) 1998 PNEUMOCOCCAL VACCINE: PEDIATRICS (0 to 5 YEARS) AND AT-RISK PATIENTS (6 to 49 YEARS) (2 of 2 - PCV) 08/15/2011 08/15/2010 YEARLY PREVENTIVE VISIT 07/08/2017 07/08/2016 COVID-19 VACCINE ( - season) 2024 PHQ-2 (once per calendar year) 2024 COLORECTAL CANCER SCREENING 07/16/2024 FIT 07/16/2024 07/16/2023 INFLUENZA VACCINE (#1) 2025 05/11/2008 A1C 03/30/2025 12/28/2024 BMP 01/01/2026 01/01/2025, 0607/2024, 12/30/2024, Additional history exists DTAP/TDAP/TD VACCINE (2 - Td or Tdap) 07/08/2026 07/08/2016 ZOSTER VACCINE (1 of 2) 2029 HPV VACCINE (No Doses Required) Completed MENINGITIS VACCINE Aged Out No longer eligible based on patient's age to complete [...] METER Routine 12/29/2024 10:1 6 AM CDT CBC WITH PLATELETS Routine 12/29/2024 6: 53 AM CDT BASIC METABOLIC PANEL Routine 12/29/2024 6:53 AM CDT GLUCOSE BY METER Routine 12/29/2024 5:14 AM CDT GLUCOSE BY METER Routine 12/29/2024 2:37 AM CDT GLUCOSE BY METER Routine 12/28/2024 9:20 PM CDT GLUCOSE BY METER Routine 12/28/2024 6:43 PM CDT ECG 12-LEAD WITH MUSE SJN,SJO,WWH STAT 12/28/2024 6:27 PM CDT GLUCOSE BY METER STAT 12/28/2024 2:18 PM CDT GLUCOSE BY METER STAT 12/28/2024 10:1 6 AM CDT GLUCOSE BY METER STAT 12/28/2024 8:00 AM CDT HEMOGLOBIN A1C STAT 12/28/2024 7:05 AM CDT CBC WITH PLATELETS STAT 12/28/2024 7: 05 AM CDT BASIC METABOLIC PANEL STAT 12/28/2024 7:05 AM CDT GLUCOSE BY METER STAT 12/28/2024 5:50 AM CDT GLUCOSE BY METER STAT 12/28/2024 2:04 AM CDT GLUCOSE BY METER STAT 12/27/2024 9:08 PM CDT GLUCOSE BY METER STAT 12/27/2024 4:33 PM CDT ROUTINE UA WITH MICROSCOPIC REFLEX TO CULTURE STAT 12/27/2024 11:46 AM CDT BLOOD CULTURE STAT 12/27/2024 10:16 AM CDT BLOOD CULTURE STAT 12/27/2024 10:10 AM CDT PARTIAL THROMBOPLASTIN TIME STAT 12/27/2024 9:43 AM CDT INR STAT 12/27/2024 9:43 AM CDT LACTIC ACID WHOLE BLOOD WITH 1X REPEAT IN 2 HR WHEN >2 STAT 12/27/2024 9:43 AM CDT TROPONIN T, HIGH SENSITIVITY STAT 12/27/2024 9:43 AM CDT CTA CHEST ABDOMEN PELVIS W CONTRAST STAT 12/27/2024 8:58 AM CDT ABO/RH TYPE AND SCREEN STAT 7:46 AM CDT CBC WITH PLATELETS & DIFFERENTIAL STAT 12/27/2024 7:46 AM CDT TYPE AND SCREEN, ADULT STAT 7:46 AM CDT CBC WITH PLATELETS AND DIFFERENTIAL STAT 12/27/2024 7:46 AM CDT TROPONIN T, HIGH SENSITIVITY STAT 12/27/2024 7:46 AM CDT LIPASE STAT 12/27/2024 7:46 AM CDT HEPATIC FUNCTION PANEL STAT 7:46 AM CDT BASIC METABOLIC PANEL STAT 12/27/2024 7:46 AM CDT ECG 12-LEAD WITH MUSE SJN,SJO,WWH STAT 12/27/2024 7:42 AM CDT OCCULT BLOOD STOOL STAT 07/16/2023 1: 45 PM [employer] from Last 3 Months or Most Recently Relevant to Health Maintenance Results * (ABNORMAL) Glucose by meter (01/02/2025 9:30 AM CDT) Only the most recent of38 resultswithin the time period is included. [facility] GLUCOSE BY METER POCT 136(H) 70 - 99 mg/dL 01/02/2025 9:36 AM CDT [facility] POCT RESULTS Blood, Capillary BLOOD SPECIMEN / Unknown 01/02/2025 9:30 AM CDT 01/02/2025 9:36 AM CDT Viet Gonzalez MD [facility] POCT Final Result [facility] POCT RESULTS [address] [place] [address] * Extra Green Top Tube (LAB USE ONLY) (01/02/2025 6:19 AM CDT) Pathologist [facility] Hold Specimen [facility] 01/02/2025 8:06 AM CDT [facility] Blood BLOOD SPECIMEN / Unknown Venipuncture / Unknown 01/02/2025 6:19 AM CDT 01/02/2025 6:49 AM CDT us Viet Gonzalez MD LAB - BLOOD ORDERABLES Final R esult [facility] [address] * (ABNORMAL) CBC with platelets (01/02/2025 6:19 AM CDT) Only the most recent of6 resultswithin the time period is included. [facility] WBC Count 13.3(H) 4.0 - 11.0 10e3/uL 01/02/2025 7:08 AM CDT [facility] RBC Count 4.28(L) 4.40 - 5.90 10e6/uL 01/02/2025 7:08 AM CDT [facility] Hemoglobin 13.0(L) 13.3 - 17.7 g/dL 01/02/2025 7:08 AM CDT [facility] Hematocrit 39.9(L) 40.0 - 53.0 % 01/02/2025 7:08 AM CDT [facility] MCV 93 78 - 100 fL 01/02/2025 7:08 AM CDT [facility] MCH 30.4 26.5 - 33.0 pg 01/02/2025 7:08 AM CDT [facility] MCHC 32.6 31.5 - 36.5 g/dL 01/02/2025 7:08 AM CDT [facility] RDW 13.4 10.0 - 15.0 % 01/02/2025 7:08 AM CDT [facility] Platelet Count 255 150 - 450 10e3/uL 01/02/2025 7:08 AM CDT [facility] Blood BLOOD SPECIMEN / Unknown Venipuncture / Unknown 01/02/2025 6:19 AM CDT 01/02/2025 6:49 AM CDT Tayla Syed KOVACS LAB - BLOOD ORDERABLES Final Result [facility] [address] [place] [phone], [facility] * (ABNORMAL) Basic metabolic panel (01/01/2025 7:00 AM CDT) Only the most recent of6 resultswithin the time period is included. Sodium 135 135 - 145 mmol/L 01/01/2025 8:07 AM [facility] Potassium 3.4 3.4 - 5.3 mmol/L 01/01/2025 8:07 AM [facility] Chloride 96(L) 98 - 107 mmol/L 01/01/2025 8:07 AM [facility] Carbon Dioxide (CO2) 28 22 - 29 mmol/L 01/01/2025 8:07 AM [facility] Anion Gap 11 7 - 15 mmol/L 01/01/2025 8:07 AM [facility] Urea Nitrogen 4.2(L) 6.0 - 20.0 mg/dL 01/01/2025 8:07 AM [facility] Creatinine 0.83 0.67 - 1.17 mg/dL 01/01/2025 8:07 AM [facility] GFR Estimate >90 >60 mL/min/1.7 3m2 01/01/2025 8:07 AM [facility] Comment:eGFR calculated us2020 CKD-EPI equation. Calcium 8.7(L) 8.8 - 10.4 mg/dL 01/01/2025 8:07 AM [facility] Glucose 133(H) 70 - 99 mg/dL 01/01/2025 8:07 AM [facility] Blood BLOOD SPECIMEN / Unknown Venipuncture / Unknown 01/01/2025 7:00 AM CDT 01/01/2025 7:26 AM CDT us Pam Barraza MD LAB - BLOOD ORDERABLES Final Re sult [facility] [address] [place] [address], [facility] * XR Gastrografin Upper GI w KUB (12/30/2024 2:56 PM CDT) Anatomical Region Laterality Modality Abdomen/Pelvis Radio Fluoroscop y 12/30/2024 2:56 PM CDT Impressions 12/30/2024 3:15 PM CDT IMPRESSION: 1. No fluoroscopic evidence for gastroduodenal leakage. Narrative 12/30/2024 3:15 PM CDT EXAM: XR GASTROGRAFIN UPPER GI W KUB LOCATION: [facility] DATE: 12/30/2024 INDICATION: Patient with gastric perforation, [...] XR GASTROGRAFIN UPPER GI W KUB LOCATION: [facility] DATE: 12/30/2024 INDICATION: Patient with gastric perforation, [...] DIAGNOSTIC IMAGING ORD ERABLES Final Result * ECG 12-Lead with MUSE ??? [facility],KAMRYNO,WW (12/28/2024 6:27 PM CDT) Only the most recent of2 resultswithin the time period is included. Systolic Blood Pressure mmHg RADIOLOGY RESULTS Diastolic Blood Pressure mmHg RADIOLOGY RESULTS Ventricular Rate 79 BPM RAD IOLOGY RESULTS Atrial Rate 79 BPM RADIOLOG Y RESULTS DC Interval 176 ms RADIOLOG Y RESULTS QRS Duration 88 ms RADIOLO GY RESULTS QT 396 ms RADIOLOGY RESULTS QTc 454 ms RADIOLOGY RESULTS P [place] 27 degrees RADIOLOGY RESULTS R AXIS -13 degrees RADIOLOGY RESULTS T [place] 49 degrees RADIOLOGY RESULTS Interpretation ECG Sinus rhythm RSR' in V1 Inferior infarct , age undetermined Abnormal ECG When compared with ECG of 27-Dec-2024 07:42, Inferior infarct is now Present Confirmed by ELIA SANABRIA, LES LOC: ([id number]) on 12/29/2024 4:29:30 PM RADIOLOGY RESULTS 12/28/2024 6:27 PM CDT 12/29/2024 4:29 PM CDT Frank Victoria MD ECG ORDERABLES Edited Result - Final RADIOLOGY RESULTS * (ABNORMAL) Hemoglobin A1c (12/28/2024 7:05 AM CDT) Estimated Average Glucose 189(H) <117 mg/dL 12/28/2024 7:46 AM CDT [facility] Hemoglobin A1C 8.2(H) <5.7 % 12/28/2024 7:46 AM CDT [facility] Comment: Normal <5.7% Prediabetes 5.7-6.4% Diabetes 6.5% or higher Note: Adopted from ADA consensus guidelines. Blood STRUCTURE OF RIGHT UPPER LIMB / Unknown Venipuncture / Unknown 12/28/2024 7:05 AM CDT 12/28/2024 7:26 AM CDT Colin Garcia MD LAB - BLOOD ORDERABLES Glenda coy Result [facility] [address] [place] [address], [facility] * (ABNORMAL) UA with Microscopic reflex to [...] 12/27/2024 12:00 PM CDT [facility] Specific [place] Urine 1.010 1.003 - 1.035 BARBRA 12/27/2024 [...] AM CDT 12/27/2024 11:51 AM CDT Narrative N LABORATORY - 12/27/2024 12:00 PM CDT Urine Culture not indicated us Karely Garnica MD LAB - URINE ORDERABLES Final Result [facility] [address] [place] [address], [facility] * Blood Culture Peripheral blood (BC) Arm, Right (12/27/2024 10:16 AM CDT) Only the most recent of2 resultswithin the time period is included. Culture No Growth 01/01/2025 12:05 PM CDT [facility] Peripheral blood (BC) STRUCTURE OF RIGHT UPPER LIMB / Unknown Venipuncture / Unknown 12/27/2024 10:16 AM CDT 12/27/2024 10:19 AM CDT us Karely Garnica MD LAB - MICRO GENERAL OR DERABLES Final Result Performing Organization Address City/[facility]/ZIP Co de Phone Number [facility] Inf. Diseases Diag. Lab [address] [facility], [address] [place] [phone], [facility] * Lactic Acid Whole Blood with 1X Repeat in 2 HR when >2 (12/27/2024 9:43 AM CDT) Lactic Acid, Initial 2.0 0.7 - 2.0 mmol/L 12/27/2024 9:53 AM CDT [facility] Blood VENOUS LINE / Unknown Venipuncture / Unknown 12/27/2024 9:43 AM CDT 12/27/2024 9:46 AM CDT us Karely Garnica MD LAB - BLOOD ORDERABLES Final Result [facility] [address] * Troponin T, High Sensitivity (12/27/2024 9:43 AM CDT) Only the most recent of2 resultswithin the time period is included. [facility] Troponin T, High Sensitivity 14 <=22 ng/L 12/27/2024 10:05 AM CDT N LAB[facility]ATORY Comment: Either a [...] MD LAB - BLOOD ORDERABLES Final Result N [facility] [address] * INR (12/27/2024 9:43 AM CDT) [facility] INR 1.01 0.85 - 1.15 12/27/2024 9:59 AM CDT N [facility] PT 13.5 11.8 - 14.8 Seconds 12/27/2024 9:59 AM CDT [facility] Blood VENOUS LINE / Unknown Venipuncture / Unknown 12/27/2024 9:43 AM CDT 12/27/2024 9:46 AM CDT Karely Garnica MD LAB - BLOOD ORDERABLES Final Result [facility] [address] [place] [address], [facility] * PTT (12/27/2024 9:43 AM CDT) aPTT 22 22 - 38 Seconds 12/27/2024 9:59 AM CDT [facility] Blood VENOUS LINE / Unknown Venipuncture / Unknown 12/27/2024 9:43 AM CDT 12/27/2024 9:46 AM CDT Karely Garnica MD LAB - BLOOD ORDERABLES Final Result Performing Organization Address [facility] Co de Phone Number [facility] [address] [place] [address], [facility] * (ABNORMAL) CTA Chest Abdomen Pelvis w Contrast (12/27/2024 8:58 AM CDT) Radiologist flags Perforated viscus(AA) RADIOLOGY RESULTS Anatomical [...] CTA CHEST ABDOMEN PELVIS W CONTRAST LOCATION: [facility] DATE: 12/27/2024 INDICATION: epigastric pain and right sided abd pain COMPARISON: CTA chest, CT abdomen pelvis 07/16/2023 TECHNIQUE: CT angiogram chest abdomen pelvis during arterial phase of injection of IV contrast. 2D and 3D MIP reconstructions were performed by the staff technologist. Dose reduction techniques were used. CONTRAST: 90ml [...] CTA CHEST ABDOMEN PELVIS W CONTRAST LOCATION: [facility] DATE: 12/27/2024 INDICATION: epigastric pain and right sided abd pain COMPARISON: CTA chest, CT abdomen pelvis 07/16/2023 TECHNIQUE: CT angiogram chest abdomen pelvis during arterial phase ofinjection of IV contrast. 2D and 3D MIP reconstructions were performed bythe staff technologist. Dose reduction techniques were used. CONTRAST: 90ml [...] worrisome bone lesions. Unchanged appearance of the [id number] body. Healed left 6th rib fracture. IMPRESSION: [...] CDT and verbalizedunderstanding of the critical result. us Karely Garnica MD IMG CT ORDERABLES Glenda l Result * CBC with platelets and differential (12/27/2024 [...] - 8.3 10e3/uL 12/27/2024 7:58 AM CDT [facility] Absolute Lymphocytes 1.8 0.8 - 5.3 [...] - BLOOD ORDERABLES Final Result [facility] [address] [place] [id number], [facility] * Adult Type and Screen (12/27/2024 7:46 AM CDT) ABO/RH(D) A POS 12/27/2024 9:30 AM CDT [facility] Antibody Screen Negative Negative 12/27/2024 9:30 AM CDT [facility] SPECIMEN EXPIRATION DATE 12/30/2024 11:59:00 PM CDT 12/27/2024 9:30 AM CDT [facility] Blood BLOOD SPECIMEN / Unknown Venipuncture / Unknown 12/27/2024 7:46 AM CDT 12/27/2024 7:51 AM CDT Karely Garnica MD LAB - BLOOD BANK TEST ORDER Final Result Performing Organization Address [facility] Co de Phone Number [facility] [address] * (ABNORMAL) Lipase (12/27/2024 7:46 AM CDT) Pathologist [facility] Lipase 78(H) 13 - 60 U/L 12/27/2024 8:19 AM CDT [facility] Blood BLOOD SPECIMEN / Unknown Venipuncture / Unknown 12/27/2024 7:46 AM CDT 12/27/2024 7:51 AM CDT Karely Garnica MD LAB - BLOOD ORDERABLES Final Result Performing Organization Address [facility] Co de Phone Number [facility] [address] * Hepatic function panel (12/27/2024 7:46 AM CDT) Pathologist [facility] Protein Total 6.7 6.4 - 8.3 g/dL [...] - 0.30 mg/dL 12/27/2024 8:19 AM CDT [facility] Comment:As of 24, refer ence ranges and trending lines may vary depending on the testing location. Blood BLOOD SPECIMEN / Unknown Venipuncture / Unknown 12/27/2024 7:46 AM CDT 12/27/2024 7:51 AM CDT us Karely Garnica MD LAB - BLOOD ORDERABLES Final Result [facility] [address] [place], [place] [address] * (ABNORMAL) Occult blood stool (07/16/2023 1:45 PM [employer]) Pathologist [facility] Occult Blood Positive(A ) Negative BARBRA 07/16/2023 2:42 PM [employer] LABORATORY Stool RECTAL CONTENTS / Unknown Non-blood Collection / Unknown 07/16/2023 1:45 PM [employer] 07/16/2023 2:05 PM [employer] us Sy Hernandez MD LAB - STOOLS ORDERABLES Final Result LABORATORY [facility] [address] Lab (1st floor, no room number) [place] [address], [facility] [phone] from Last 3 Months or Most Recently Relevant to Health Maintenance Insurance [facility] Advance Directives For more information, please contact: [phone] * Full Code (Latest Code Status on File) Date Activated Date Inactivated Comments 12/27/2024 11:07 AM 01/02/2025 4:47 PM All basic a nd advanced life-sustaining interventions are performed as appropriate Question Answer Comments Code status determined by: Discussion with cachorro nt/ legal decision maker * Full Code Date Activated Date Inactivated Comments 07/16/2023 6:29 PM 07/17/2023 7:46 PM All basic and advanced life-sustaining interventions are performed as appropriate Question Answer Comments Code status determined by: Discussion with cachorro dowling/ legal decision maker Care Teams Import/Export Analyst Relationship Specialty Start Date End Date Clinic, [facility] [id number] [place] [id number] PCP - General 07/16/23
--- OUTSIDE RECORDS SUMMARY | 2025-02-06 14:59 | XMS_ITS | Encounter Summary ---
Author Organization [facility] Address [address] [place] [id number] Care Team Providers Care Nursing Education Consultant Name Role Phone CharlettejessicaLuis Eca Joe ADAIR, SALES AND SERVICE ENGINEER Primary Care Provid er Reason for Visit * Reason Comments FOLLOW-UP,HOSPITAL Encounter Details Date Type Department Care Team (Late st Contact Info) Description 01/16/2025 Telephone [facility] [address] [place] [phone] Martha Olsen RN, BSN FOLLOW-UP,HOSPITAL Social History Tobacco Use Types Packs/Day Years Used Date Smoking Tobacco: Every Day Cigarettes Smokeless Tobacco: Former Chew Comments:started 17 Alcohol Use Standard Drinks/Week Comments Yes 0 (1 standard drink = 0.6 oz pur e alcohol) 2-4 drinks per week PHQ-2 Answer Date Recorded PHQ-2 Score 0 05/23/2020 Sex and Gender Information Value Date Recorded Sex Assigned at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 Legal Sex Male 5:26 AM CDT Gender Identity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 Sexual Orientation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 If there is anything else I can do to help support the plan of care, please contact me. Thank you, Martha Olsen, RN, BSN 01/16/2025, 12:42 PM [facility] PH: [phone] documented in this encounter Plan of Treatment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 documented as of this encounter Visit Diagnoses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documented in this encounter Care Teams Nursing Education Consultant Relationship Specialty Start Date End Date Isabela Sharp, YOUTH MINISTER, SALES AND SERVICE ENGINEER [address] [facility] [place] [address] PCP - General Nurse Practitioner 04/17/17 01/18/25 documented as of this encounter
--- OUTSIDE RECORDS SUMMARY | 2025-02-06 15:00 | XMS_ITS | Encounter Summary ---
Author Organization [facility] Address [facility] 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 He is following up with them and will call as needed. Umu Johnson RN documented in this encounter Plan of Treatment Upcoming Encounters Date Type Department Care Team (Late st Contact Info) Description 02/13/2025 2:00 PM CDT Ancillary Procedure [facility] [address] [place] [phone] Tabitha Garcia PA-C [address] [place], [place] [id number] documented as of this encounter Visit Diagnoses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documented in this encounter Care Teams Personal Banker Relationship Specialty Start Date End Date Clinic, [address] [id number] PCP - General 07/16/23 documented as of this encounter
[2025-02-06 15:07] LABS: Lactate* 1.6 mmol/L (0.5-1.9)
[2025-02-06] MEDS: ONDANSETRON 2 MG/ML inj 4 MG IVP (15:07)
[2025-02-06 15:08] LABS: Hematocrit 38.0 % (37.0-53.0); Hemoglobin* 12.7 gm/dL (13.5-17.5); Immature Granulocytes Pct Auto 0.5 %; Mean Corpuscular HGB Conc 33 gm/dL (32-36); Mean Corpuscular Hemoglobin 30 pg (26-34); Mean Corpuscular Volume 91 fL (80-100); RDW Coefficient of Variation % 13.3 % (11.5-15.5); Red Blood Count 4.19 m/uL (4.30-5.90); White Blood Count* 16.54 K/uL (4.50-11.00)
[2025-02-06 15:09] LABS: Immature Granulocytes Abs Auto 0.10 K/uL (0.00-0.30); Lymphocytes Absolute Auto 2.20 K/uL (0.90-2.90); Slide Review Reflex No
[2025-02-06 15:22] LABS: Chloride* 101 mmol/L (96-114); Potassium* 4.1 mmol/L (3.6-5.1); Sodium* 135 mmol/L (135-149)
[2025-02-06 15:24] LABS: Blood Urea Nitrogen* 11 mg/dL (5-24); Creatinine* 0.7 mg/dL (0.5-1.5); Est. Creatinine Clearance* 141.93; Estimated Glomerular Filt Rate 116 ml/min
[2025-02-06 15:25] LABS: Anion Gap 10 mEq/L (7-15); Calcium* 9.6 mg/dL (8.4-10.6); Carbon Dioxide* 24 mmol/L (20-32); Glucose* 201 mg/dL (60-115)
--- NOTE | 2025-02-06 16:08 | CRLHL7_ITS ---
For Patients: As a result of the 21st Century Cures Act, medical imaging exams and procedure reports are released immediately into your electronic medical record. You may view this report before your referring provider. If you have questions, please contact your health care provider. INDICATION: Liver mass TECHNIQUE: 1.5 T MRI of the abdomen performed with pre and postcontrast T1 weighted imaging; T2 weighted imaging; in and out of phase imaging; diffusion weighted imaging. 25 mL Dotarem IV COMPARISON: Same day CT abdomen and pelvis FINDINGS: Lungs: The lung bases are clear. No pleural or pericardial effusion. Liver: Homogeneous liver parenchyma. Hepatic steatosis. Multiple T2 hyperintense, rim enhancing, diffusion restricting ovoid lesions in the romy hepatis with adjacent fat stranding. The largest abutting the right liver border measures 4.8 x 4.1 cm (8/21). A lesion measuring 3.9 x 3 cm either abuts and compresses or arises from the proximal duodenal wall (8/). There are least 3 regions of signal abnormality that may be contiguous with each other (/93, 96, 104) in this region. Few scattered punctate T2 hyperintense and diffusion hyperintense lesions throughout the liver are indeterminate for benign cysts versus additional intrahepatic lesions. Biliary tree and gallbladder: No intra or extrahepatic biliary dilation. Prior cholecystectomy. Spleen: Splenomegaly measuring 15.7 cm Pancreas: Normal pancreatic parenchyma. No pancreatic masses. No pancreatic duct dilation. Adrenal glands: Unremarkable. Kidneys and ureters: No renal masses or hydronephrosis. 1 cm left renal cyst. Known bilateral renal calculi are not well assessed on this exam GI tract: Moderate stranding adjacent to the duodenum, similar to prior CT. Possible duodenal wall defect associated with an adjacent rim enhancing fluid collection described above (20/57). Vasculature: The IVC and aorta are patent. No abdominal aortic aneurysm. Lymph nodes: Multiple enlarged perihepatic and romy hepatis lymph nodes measuring up to 1.8 cm (16/38). Peritoneum: Trace perihepatic free fluid. Focal masslike mesenteric stranding in the right mid abdomen measuring 3.8 x 6.2 cm (16/63), likely related to the inflammatory process. Abdominal wall: Unremarkable Bones: Bone marrow signal is within normal limits IMPRESSION: 1. Multiple rim enhancing lesions in the romy hepatis adjacent to the 1st portion of the duodenum and right hepatic border measuring up to 4.8 cm. These are concerning for abscesses, suspected in the setting of perforated duodenal ulcer. A dominant lesion either arises from or abuts the proximal duodenum with luminal narrowing. This raises concern for impending obstruction. 2. Moderate stranding adjacent to the proximal duodenum and pancreatic head are likely reactionary, however duodenitis and/or pancreatitis are also possible. Please correlate with lipase. 3. Repeat imaging is recommended following resolution of acute episode to exclude possibility of underlying mass. 4. Multiple enlarged romy hepatis and peripancreatic lymph nodes are likely reactive. 5. Splenomegaly and hepatic steatosis Dictated by Precious Weeks MD @ 02/07/2025 8:11:56 AM (Electronically Signed)
[2025-02-06] MEDS: PIPERACILLIN/TAZOBACTAM 4.5 GM in 0.9 % SODIUM CHLORIDE Mini-bag 100 ML IVPB (19:48)
[2025-02-06 19:59] VITALS: BP 119/87; PULSE 84; RESP 22; TEMP 36.9; O2SAT 92
[2025-02-06] MEDS: PANTOPRAZOLE SODIUM 40 MG INJ 80 MG IVP (20:31)
[2025-02-06 21:43] VITALS: BP 122/79; PULSE 77; RESP 20; TEMP 36.8; O2SAT 92
--- NOTE | 2025-03-10 19:51 | ED.GENADULT ---
HPI - General Adult General Date Seen: 02/06/25 Chief complaint: Flank Pain Stated complaint: thinks has kidney stones Time Seen by Provider: 02/06/25 14:12 Source: patient Mode of arrival: ambulatory Limitations: no limitations History of Present Illness HPI narrative: 03/10/2025. Addendum requested by medical records This patient was seen in the ER on 02/06/[address] Oconnell signed out to me, Dr. Mann. This is addendum to clarify the patient's final diagnosis. Patient had duodenitis on his CT scan as well as intra-abdominal abscesses. He was transferred for hospitalization to [facility] which is [facility] of the [facility] system. Accepted by hospitalist Dr. العلي Clinical impression: 1. Duodenitis 2. Abdominal abscess Related Data Home Medications ?Medication ?Instructions ?Recorded ?Confirmed amlodipine 5 mg tablet 5 mg PO BID 02/06/25 02/06/25 empagliflozin 10 mg tablet 10 mg PO DAILY 02/06/25 02/06/25 (Jardiance) pantoprazole 40 mg tablet,delayed 40 mg PO BID 02/06/25 02/06/25 release sucralfate 1 gram tablet 1 g PO QID 02/06/25 02/06/25 tamsulosin 0.4 mg capsule PO 02/06/25 Allergies Allergy/AdvReac Type Severity Reaction Status Date / Time No Known Drug Allergies Allergy Verified 02/06/25 12:35 [facility] Social History Smoking Status: Current every day smoker What tobacco products do you use: cigarettes Smoking packs per day: 0.25 Smoking cigarettes per day: 5.0 How often do you have a drink containing alcohol: monthly or less AUDIT-C Alcohol total score: 1 Non-prescribed substance use: denies use service: No Course Vital Signs Vital signs: Initial Vital Signs Temperature 96.8 F L 02/06/25 12:34 Temperature Source Temporal Artery Scan 02/06/25 12:34 Pulse Rate 96 02/06/25 12:34 Respiratory Rate 20 02/06/25 12:34 Blood Pressure 147/92 H 02/06/25 12:34 Blood Pressure Mean 110 H 02/06/25 12:34 Blood Pressure Position Sitting 02/06/25 12:34 Pulse Oximetry 96 02/06/25 12:34 Oxygen Delivery Method Room Air 02/06/25 12:34 Vital Signs Temperature 96.8 F L 02/06/25 12:34 Pulse Rate 96 02/06/25 12:34 Respiratory Rate 20 02/06/25 12:34 Blood Pressure 147/92 H 02/06/25 12:34 Pulse Oximetry 96 02/06/25 12:34 Oxygen Delivery Method Room Air 02/06/25 12:34 Temperature 98.3 F 02/06/25 21:43 Pulse Rate 77 02/06/25 21:43 Respiratory Rate 20 02/06/25 21:43 Blood Pressure 122/79 02/06/25 21:43 Pulse Oximetry 92 02/06/25 21:43 Oxygen Delivery Method Room Air 02/06/25 21:43 Medications Administered Medications: Discontinued Medications Generic Name Dose Route Start Last Admin Trade Name Freq PRN Reason Stop Dose Admin Sodium Chloride 1,000 mls @ 1,000 mls/hr 02/06/25 14:30 02/06/25 16:42 0.9 % Sodium Chloride 1000 Ml IV 02/06/25 15:29 Infused .Q1H JEFF Infusion Piperacillin Sod/Tazobactam 100 mls @ 200 mls/hr 02/06/25 19:45 02/06/25 20:32 Sod 4.5 gm/ Sodium Chloride IVPB Infused Q6H JEFF Infusion Ketorolac Tromethamine 30 mg 02/06/25 14:27 02/06/25 15:07 Ketorolac 30 Mg/Ml Inj IVP 02/06/25 14:28 30 mg ONCE ONE Administration Ondansetron HCl 4 mg 02/06/25 14:27 02/06/25 15:07 Ondansetron 2 Mg/Ml Inj IVP 02/06/25 14:28 4 mg ONCE ONE Administration Pantoprazole Sodium 80 mg 02/06/25 19:47 02/06/25 20:31 Pantoprazole Sodium 40 Mg Inj IVP 02/06/25 19:48 80 mg ONCE ONE Administration Medical Decision Making Lab Data Labs: Lab Results 02/06/25 02/06/25 Range/Units 12:40 15:00 WBC 16.54 H (4.50-11.00) K/uL RBC 4.19 L (4.30-5.90) m/uL Hgb 12.7 L (13.5-17.5) gm/dL Hct 38.0 (37.0-53.0) % MCV 91 (80-100) fL MCH 30 (26-34) pg MCHC 33 (32-36) gm/dL RDW Coeff of Alonzo 13.3 (11.5-15.5) % Plt Count 326 (140-440) K/uL Neut % (Auto) 75.1 H (42.0-72.0) % Lymph % (Auto) 13.2 L (20-44) % [place] % (Auto) 8.3 (0.0-11.0) % Eos % (Auto) 2.5 (0.0-7.0) % Baso % (Auto) 0.4 (0.0-3.0) % Neut # (Auto) 12.40 H (1.7-7.0) K/uL Lymph # (Auto) 2.20 (0.90-2.90) K/uL [place] # (Auto) 1.40 H (0.00-0.90) K/UL Eos # (Auto) 0.40 (0.00-0.50) K/uL Baso # (Auto) 0.10 (0.00-0.30) K/uL Abs Immat Gran (auto) 0.10 (0.00-0.30) K/uL Imm/Tot Granulo (auto) 0.5 % Sodium 135 (135-149) mmol/L Potassium 4.1 (3.6-5.1) mmol/L Chloride 101 (96-114) mmol/L Carbon Dioxide 24 (20-32) mmol/L Anion Gap 10 (7-15) mEq/L BUN 11 (5-24) mg/dL Creatinine 0.7 (0.5-1.5) mg/dL Estimated Creat Clear 141.93 Estimated GFR 116 ml/min Glucose 201 H (60-115) mg/dL Lactate 1.6 (0.5-1.9) mmol/L Calcium 9.6 (8.4-10.6) mg/dL C-Reactive Protein 8.2 H (0.5-1.0) mg/dL Urine Color Dark yellow (Yellow) Urine Appearance Clear (Clear) Urine pH 5.5 (5.0-8.5) Ur Specific [place] 1.020 (1.000-1.030) Urine Protein 2+ A (Negative) Urine Glucose (UA) 1+ A (Negative) Urine Ketones Negative (Negative) Urine Blood 1+ A (Negative) Urine Nitrite Negative (Negative) Urine Bilirubin 1+ A (Negative) Urine Urobilinogen 0.2 (0.2-1.0) Ur Leukocyte Esterase Negative (Negative) Urine RBC 5-10 A (0-2) Urine WBC 5-10 A (0-5) Ur Squamous Epith Cells Few (None-Few) Urine Bacteria Few A (None) Urine Mucus Few A (None) Discharge Plan Discharge Clinical Impression: Duodenitis, Abdominal abscess Patient Disposition: Xfer Other Prescriptions: No Action sucralfate 1 gram tablet 1 g PO QID amlodipine 5 mg tablet 5 mg PO BID tamsulosin 0.4 mg capsule PO pantoprazole 40 mg tablet,delayed release (DR/EC) 40 mg PO BID Jardiance 10 mg tablet 10 mg PO DAILY
== END 2025-02-06 21:53 | disposition other institution (70) ==
PROVIDERS: Family Medicine; Emergency Provider Emergency Medicine; PCP Family Medicine
DX: K29.80 Duodenitis without bleeding (principal); K65.1 Peritoneal abscess
CPT/HCPCS: 36415; 74176; 74183; 80048; 81001; 83605; 85025; 86140; 87086; 96365; 96375; 99285; A9575; J1885; J2405; J2470; J2543; J7030